=== PATIENT | male | born 1955 | race Caucasian/White ===

== ENCOUNTER 2017-02-04 09:19 | Inpatient (IN) | payer MEDICARE, OTHER ==
[~2017-02-04] VITALS: Ht 177.8 cm; Wt 96.9 kg
--- NOTE | ~2017-02-04 | CON ---
PATIENT'S NAME: MARIA LUISA BARRETT [facility] AGE: 61 Y [address] ROOM: [address] [address] [place] [facility] [place]: 02/04/2017 Consultation DISCHARGE DATE: FAMILY PHYSICIAN: Tank Calvillo MD ATTENDING PHYSICIAN: SHALINI MCGOWAN Consult to Dr. Juanita Mcpherson REASON FOR CONSULTATION: Maria Luisa Barrett is a 61-year-old man with gross hematuria, presumed due to adenocarcinoma of the pancreas, metastatic to the left kidney. HISTORY OF PRESENT ILLNESS: Obtained from Mr. Barrett who is a good historian; Dr. Mcpherson; Dr. Cal Garcia. The patient's history through 01/26/2017 is well documented in his [facility] office note which is appended in the physician's report. The patient is currently on day 11 of his 5th cycle of FOLFOX on his 21st postoperative day after bilateral renal arteriogram and embolization in the upper pole of the left kidney. When the patient was seen in the office on 01/26/2017, he was at home following his discharge from his lengthy hospital admission from 01/14/2017 through 01/22/2017. The patient was capable of self-care. His pain was well controlled with medications. He had no gross hematuria. His appetite and energy level was good. As noted, he is on day 11 of his 5th cycle of FOLFOX. The patient developed laryngeal dysesthesias for 2-3 days, but no paresthesias. On day 8, he developed gross hematuria and clots. On day 10, the patient developed painful urinary retention and hesitancy. The patient reported to the hospital, Dr. Harsha Ferris took the patient to the operating suite and performed a cystoscopy with evacuation of clots. The patient is currently seen at the bedside. Other than this complaint, he had been doing reasonably well. He has had headaches which have improved, but still persists. He has been having these for several months. He generally treats them with [id number] medications. They just occur once a week. His constitutional symptoms are rather minimal given his situation. Upon admission, the white count was 12,200, the hemoglobin 10, the MCV 93, the platelets 345,000, and the patient had 68% neutrophils and 10% lymphocytes. The CMS was remarkable for an EGFR of 47 and alkaline phosphatase of 156 international units/L and AST of 57 international units/L and an albumin of 2.9 g/dL. At this point, the question is how to address the gross hematuria. 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 ROOM: [place] [address] [place]ATION: [facility] [place]: 02/04/2017 Consultation DISCHARGE DATE: FAMILY PHYSICIAN: Tank Calvillo MD ATTENDING PHYSICIAN: SHALINI MCGOWAN left periaortic area and metastatic to left collecting ducts and left kidney, which was first suspected in january 2013 when the patient developed a mass in the pancreatic tail suspicious for cancer. (The patient had received surveillance CAT scans of the pancreas because he had 2 serious episodes of necrotizing pancreatitis, one in September 2010 and one in November 2011, requiring a Papito-en-Y). The patient was taken to surgery again in 2012 after the mass was discovered and a distal pancreatectomy, splenectomy, and lymph node dissection confirmed the presence of the adenocarcinoma of pancreas. A T3 lesion with 12/28 lymph nodes involved with cancer was noted. The patient was placed on adjuvant gemcitabine until the last half of 2012 for 6 months. In June 2015, pulmonary metastases were noted. FOLFIRINOX was administered from 08/20/2015 through 10/14, but discontinued due to toxicity. Gemcitabine was initiated on 07/02/2016 and discontinued on 10/22/2016 due to progressive disease. Chemotherapy was re-initiated with FOLFOX in late October 2006 and on 12/24/2016 his 3rd cycle of FOLFOX was initiated. The patient tolerated the FOLFOX well, but had noted neither improvement nor progression of his symptoms. The patient underwent a course of radiation therapy to the left kidney for gross hematuria. The therapy summary is currently not in [email or web address]. It was presumed that patient would receive 3100 cGy in 14 fractions. Perhaps, this was going to be followed by 2200 cGy in 11 fractions to the left kidney. The patient's hematuria was controlled somewhat with the radiation, but eventually he developed progressive gross hematuria again. Therefore on 01/15/2017, he underwent bilateral renal arteriogram and embolization of the upper pole of the tumor of the left kidney. The patient tolerated the procedure well with pain at the time. It was eventually possible to discharge him from the hospital. It should be noted that an inferior vena cava filter was placed because the patient had developed a large pulmonary embolism with acute hypoxic respiratory failure when anticoagulation had been stopped. The patient was discharged on rivaroxaban. REVIEW OF SYMPTOMS: Negative other than those noted in the history of the present illness. MEDICATIONS: Upon admission, 1. Acetaminophen. 2. ASA 81 mg daily. 3. Calcium carbonate 500 mg p.o. every 2 hours. 4. Vitamin D3 2000 units daily. 5. Cyanocobalamin 1000 mcg p.o. daily. 6. Dexamethasone with chemotherapy. 7. Docusate sodium. 8. Ferrous sulfate. 9. Folic acid. 10. Insulin aspartame. PATIENT'S NAME: MARIA LUISA BARRETT [facility] AGE: 61 Y [address] ROOM: [place] [address] [place] [facility] [place]: 02/04/2017 Consultation DISCHARGE DATE: FAMILY PHYSICIAN: Tank Calvillo MD ATTENDING PHYSICIAN: SHALINI MCGOWAN 11. Magnesium oxide. 12. Metformin. 13. Morphine. 14. Multivitamin. 15. Nortriptyline. 16. Omeprazole. 17. Oxycodone. 18. Polyethylene glycol. 19. Prochlorperazine. 20. Rivaroxaban. 21. Tamsulosin. ACTIVE MEDICAL PROBLEMS, CHRONIC AND DIAGNOSED: 1. Type 2 insulin-dependent diabetes mellitus. 2. Atrial fibrillation, requiring oral anticoagulation. 3. ASCVD with multiple small ischemic strokes. 4. Hypertension. 5. CKD stage 3A. ACUTE MEDICAL ILLNESSES, PAST SURGERIES, INJURIES: 1. DVT and pulmonary emboli. 2. Resection of pancreatic primary. IMPRESSION: 1. Stage IV pancreatic cancer, metastatic to the lung and left kidney. 2. Neither systemic chemotherapy embolization or radiation therapy has controlled the hematuria. 3. It is reasonable to consider a left nephrectomy at this point. The patient is not preterminal, the course of his pancreatic cancer has been fairly indolent and he does not have any obvious contraindications to surgery such as congestive heart failure or unstable angina. Recommend diagnostic and further adjust treatment, left oophorectomy if the urologist believes this is surgically practical. PATIENT EDUCATION: Discussed the rationale for this approach. MD ADELITA GARCIA/baljit PATIENT'S NAME: MARIA LUISA BARRETT [facility] AGE: 61 Y [address] ROOM: [place] [address] [place] [facility] [place]: 02/04/2017 Consultation DISCHARGE DATE: FAMILY PHYSICIAN: Tank Calvillo MD ATTENDING PHYSICIAN: SHALINI MCGOWAN /[id number] CC: MD Tyler Bull MD, PhD d: 02/05/17 2324 t: 02/09/17 1523, CONSULTATION REPORT
--- NOTE | ~2017-02-04 | DS ---
PATIENT'S NAME: MARIA LUISA COSME [facility] AGE: 61 Y [address] ROOM: [place] [address] [place]ATION: [facility] [place] ADMIT DATE: 02/04/2017 Discharge Summary DISCHARGE DATE: 02/20/2017 FAMILY PHYSICIAN: Tank Calvillo MD ATTENDING PHYSICIAN: Ludin Springer CONSULTANTS: 1. Dr. Anderson. 2. Dr. Garcia. 3. Dara Pizarro APRN. DISCHARGE DIAGNOSES: 1. Hematuria. 2. Stage IV pancreatic cancer. 3. Acute on chronic pain. 4. Diabetes mellitus type 2. 5. Postop shock. 6. Paroxysmal atrial fibrillation. 7. Acute kidney injury on chronic kidney disease 3. 8. Acute blood loss anemia on anemia of chronic disease. 9. Chronic hypoxic respiratory failure. 10. Essential hypertension. 11. Long-term anticoagulation. 12. History of pulmonary embolism. 13. Generalized weakness. PROCEDURES PERFORMED: 1. Cystoscopy/fulguration of bleeders by Dr. Ferris on 02/05/2017. 2. Left nephrectomy done on 02/10/[address] Garcia. HOSPITAL COURSE: Please refer to admitting history and physical as dictated by Leonora Georges APRN. Briefly, the patient was admitted to [facility], who had a known history of stage IV pancreatic cancer and a left renal mass. He presented with hematuria. Dr. Garcia and Dr. Anderson were consulted to follow along. The patient was placed on sliding scale insulin for his diabetic needs. Dr. Ferris saw the patient, and CBI was initiated. His Xarelto was placed on hold. He was taken for cystoscopy with clot evacuation on 02/04/2017. Dr. Garcia did see the patient. Options were given for his recurrent hematuria while he has been on long-term anticoagulation for his history of PEs. The patient had decided he wanted to proceed with palliative left nephrectomy by Dr. Garcia. Dara Pizarro, CHA, was consulted to follow for palliative care. On 02/07/2017, he started to have hematuria again, CBI had to be resumed. He did need to get 2 units of packed red blood cells. He had significant pain in the left flank prior to the procedure, which Dilaudid SORTING MACHINE OPERATOR was used for pain control. On 02/10/2017, the patient was PATIENT'S NAME: MARIA LUISA COMSE [facility] AGE: 61 Y [address] ROOM: [id number] [place], [place] [address] LOCATION: [facility] [place] ADMIT DATE: 02/04/2017 Discharge Summary DISCHARGE DATE: 02/20/2017 FAMILY PHYSICIAN: Tank Calvillo MD ATTENDING PHYSICIAN: Ludin Springer taken for a left nephrectomy by Dr. Garcia. He did have an epidural postoperatively. Postop, he did require Levophed and was placed in the ICU. It was felt as though he had a postop shock. His blood pressures did improve. He was able to be weaned off the Levophed. On 02/11/2017, the patient was transferred out of the ICU, on 02/12/2017, his Lovenox 1 mg/kg twice daily was resumed. Pain control continued to be an issue. He was placed on a Dilaudid SORTING MACHINE OPERATOR, which did give him some improvement. His morphine 15 mg extended release was also resumed. Physical Therapy and Occupational Therapy did follow up for restorative cares. His bowels were working. He was noted to have some acute kidney injury on chronic kidney disease stage 3. Creatinine did improve, 2.2 down to 1.6 and then subsequently was stabilized at creatinine of 1.9. His Dilaudid SORTING MACHINE OPERATOR was continued to be weaned. He was placed on Dilaudid p.o. It was recommended that his MS Contin be titrated upwards by Oncology. He was then placed at 60 mg p.o. twice daily of extended release MS Contin with Dilaudid for breakthrough pain. His Donahue was discontinued. He was able to void without difficulty and without hematuria. His end-tidal was monitored, which was stable. Gradually, the patient improved. His MS Contin was then again adjusted to 90 mg p.o. twice daily. He was up ambulatory in the hallway. His appetite had gotten significantly better. He had no further hematuria. On 02/20/2017, he had no left flank pain. His pain was well controlled. His blood sugars were stable on 8 units of Levemir and mild sliding scale. Creatinine was stable. He is recommended to have an outpatient appointment with Dr. Maier in 1 week. His Lovenox was changed to Xarelto 20 mg at discharge. He was stable on his chronic 2 L of oxygen at all times. It was recommended that the patient proceed home with Home Health Care with PT and OT at home as well. Palliative Care will also follow along as needed at home. On 02/20/2017, it was felt as though the patient was stable to return home. Follow up with Dr. Garcia in 3 weeks. Follow up with Dr. Calvillo with a CBC and renal in 3 days. Follow up with Dr. Maier in 1 week. LABORATORY DATA: Potassium remained stable. Sodium remained stable. Calcium 8.5. BUN 21 upon admit, it did drop as low as 19, prior to discharge 26. Creatinine 1.5 upon admit, at its highest 2.2, prior to discharge 1.9. Albumin 2.2. Phos 3.3. GFR 47 upon admit, it trended down as low as 30 and prior to discharge 36. WBC upon admit 12.2, it did trend down as low as 10.8, postoperatively got as high as 15.6, prior to discharge 13.3. Hemoglobin 10.0 upon admit, it dropped as low as 7.5, prior to discharge 8.7. Hematocrit is stable at discharge 28.1. Platelets 165 to 803. RADIOLOGY REPORTS: Chest x-ray done on 02/04/2017, shows no acute findings. Stable scattered nodularities in the lungs could reflect metastatic disease. CT of the abdomen and pelvis done on 02/04/2017, shows a left hematuria evident as a result of recurrent pancreatic cancer mass infiltrating upper pole of the left kidney. Slow progressive recurrent metastatic disease is PATIENT'S NAME: MARIA LUISA COSME [facility] AGE: 61 Y [address] ROOM: [place] [address] LOCATION: [facility] [place] ADMIT DATE: 02/04/2017 Discharge Summary DISCHARGE DATE: 02/20/2017 FAMILY PHYSICIAN: Tank Calvillo MD ATTENDING PHYSICIAN: Ludin Springer minimally changed in the short interval. Left periaortic retroperitoneal node is mildly increased in size. Postop chest and abdominal x-ray done on 02/12/2017 shows air containing small bowel loops with gas and fecal material in the colon. Overall appearance consistent with nonobstructive adynamic ileus. The bowel did not appear to be obstructive, extensive postop surgical changes in abdomen. Low lung volume with crowding of the lung markings at the bases. DISCHARGE INSTRUCTIONS: The patient will be discharged to home with Home Health Care, PT and OT. Diet as tolerated. Activity as tolerated, no driving until cleared. Followup appointment with Dr. Calvillo in 3 days with a CBC and renal. Follow up with Dr. Garcia in 3 weeks. Follow up with Dr. Maier in 1 week. 2 L of oxygen at all times. DISCHARGE MEDICATIONS: 1. Tylenol 1000 mg p.o. every 6 hours. 2. Os-Yan with vitamin D two tablets p.o. twice daily. 3. Trubiotics 1 capsule p.o. daily. 4. Vitamin D3 2000 units p.o. daily. 5. Vitamin B12 1000 mcg p.o. daily. 6. Colace 100 mg p.o. 3 times a day p.r.n. 7. Feosol 325 mg p.o. twice daily. 8. Folic acid 1 mg p.o. daily. 9. NovoLog sliding scale with meals. 10. Neurontin 100 mg p.o. every 8 hours. 11. Levemir 8 units subcu q.h.s. 12. Creon 1 capsule p.o. 3 times a day with meals. 13. Magnesium 400 mg p.o. twice daily. 14. Metoprolol 200 mg p.o. q.h.s. 15. MS Contin 90 mg p.o. twice daily. 16. Multivitamin 1 tab p.o. twice daily. 17. Pamelor 50 mg p.o. q.h.s. 18. Prilosec 40 mg p.o. daily. 19. MiraLAX 17 g p.o. q.h.s. p.r.n. constipation. 20. Senokot 2 tablets every night at bedtime. 21. Dilaudid 2 mg p.o. every 2 hours as needed for breakthrough pain. 22. Compazine 10 mg p.o. every 8 hours as needed for headache, nausea, vomiting. 23. Creon 12,000 units p.o. 3 times daily with meals. 24. PreserVision 1 tablet p.o. twice daily. 25. Aspirin 81 mg p.o. daily. 26. Dexamethasone 8 mg p.o. every day after chemo. 27. Xarelto 20 mg p.o. daily. Thank you for allowing us to participate in the care of this patient as he has been hospitalized at [facility]. PATIENT'S NAME: MARIA LUISA COSME [facility] AGE: 61 Y [address] ROOM: [address] [address] LOC[place]: [facility] [place] ADMIT DATE: 02/04/2017 Discharge Summary DISCHARGE DATE: 02/20/2017 FAMILY PHYSICIAN: Tank Calvillo MD ATTENDING PHYSICIAN: Ludin Springer Time spent at the bedside as well as coordinating discharge 40 minutes. STEPHENIE GA APRN FOR MD ARTURO ARGUELLO/modl /[id number] d: 02/21/17 0354 t: 03/05/17 1526, DISCHARGE SUMMARY
--- NOTE | ~2017-02-04 | OR ---
PATIENT'S NAME: MARIA LUISA COSME [facility] AGE: 61 Y [address] ROOM: [place] [address] [place] [facility] [place]: 02/04/2017 OR/Procedure Report DISCHARGE DATE: FAMILY PHYSICIAN: Tank Calvillo MD ATTENDING PHYSICIAN: SHALINI MCGOWAN SURGEON: Cal Harry MD STEEL PLATE PRINTER: Dr. Mckenzie. DATE OF PROCEDURE: 02/10/2017 PREOPERATIVE DIAGNOSES: 1. Metastatic pancreatic cancer with invasion of the left kidney. 2. Refractory gross hematuria with clot retention. POSTOPERATIVE DIAGNOSES: 1. Metastatic pancreatic cancer with invasion of the left kidney. 2. Refractory gross hematuria with clot retention. PROCEDURE PERFORMED: Complicated left nephrectomy secondary to extensive tumor infiltration. ANESTHESIA: General. INDICATION: This is a 61-year-old gentleman with the above-noted diagnoses. He is continuing with chemotherapy. He has multiple complications. He has had multiple admissions because of gross hematuria. Less invasive approaches have been tried including an attempted embolization as well as radiation. He continues to be admitted frequently. We have been reluctant, considering the overall picture, to proceed with palliative nephrectomy. However, the patient is in again with clot retention, and we were out of options. Everyone has been consulted, and most importantly, the patient has given his opinion. He would like to try to get the kidney out and hopefully stay out of the hospital. This will allow for more liberal anticoagulation secondary to his known pulmonary emboli. He understands that he is very high risk and there is nothing curative about this. DESCRIPTION OF PROCEDURE: Having obtained his informed consent, the patient was taken to the operating room. He was prepped and draped sterilely in a modified left flank position. General anesthesia was administered. He also had an epidural catheter placed. A left flank incision was made. The left retroperitoneum was entered. I then went ahead and opened the peritoneum and mobilized the colon anteromedially. The kidney was fixed secondary to extensive malignant and desmoplastic infiltration. I was able to free it up inferiorly and laterally. Posterior, tumor grows into it directly as well as superiorly. It became much more PATIENT'S NAME: MARIA LUISA COSME [facility] AGE: 61 Y [address] ROOM: [place] [address] [place] [facility] [place] DATE: 02/04/2017 OR/Procedure Report DISCHARGE DATE: FAMILY PHYSICIAN: Tank Calvillo MD ATTENDING PHYSICIAN: SHALINI MCGOWAN difficult when we appreciate how much tumor encasement there was of the hilum. Reviewing his CT, he had a single artery and vein, and I felt that I would be able to identify those. It was going to be difficult. We came across the tumor superiorly. I then turned my attention inferiorly. Ordinarily, I like to make sure we are resectable before dividing the ureter. However, we were not going to be able to get any mobilization without proceeding. Then, we made a decision, considering all the above issues, to proceed. The ureter and gonadal vessels were divided and ligated. We then worked our way up along the aorta or at least where the aorta was encased in tumor. I continued to carefully skinny down the area of the hilum, working from the superior and inferior sides. Ultimately, we had it narrowed down up that I could get a pedicle clamp across it. The pedicle clamp was placed. I then worked posteriorly, divided more tumor infiltration, and continued to mobilize the kidney. We came through the capsule and desmoplastic versus malignant reaction toward the upper pole pushing the adrenal gland off. I then went ahead and divided the hilum. After taking down some more attachments, the kidney was removed. We then spent some time using right angles and pedicle clamps, cleaning up the hilum so we could get good ties on. The hilum was controlled with #1 silk ties. We then spent some time with antibiotic irrigation. Small bleeding points were controlled. The left colon was then returned to its normal anatomic position, and the wound was closed in layers. The patient tolerated the procedure well. Blood loss was estimated at 1 L. Two units were replaced. All counts were correct. The patient returned to the recovery area awake and in stable condition. CAL HARRY MD [facility]/modl /[id number] CC: MD Tank Burk MD d: 02/10/17 1344 t: 02/17/17 0951, OPERATIVE SUMMARY
--- NOTE | ~2017-02-04 | CON ---
PATIENT'S NAME: MARIA LUISA COSME [facility] AGE: 61 Y [address] ROOM: [address] [address] LOCATION: [facility] [place] ADMIT DATE: 02/04/2017 Consultation DISCHARGE DATE: FAMILY PHYSICIAN: Tank Calvillo MD ATTENDING PHYSICIAN: SHALINI MCGOWAN DATE OF CONSULTATION: 02/06/2017 REFERRING PHYSICIAN: Madhu Anderson MD LOCATION: Medical-surgical unit, Room 3207. CHIEF COMPLAINT: Palliative care referral for the patient and family support and further goals of care discussion. HISTORY OF PRESENT ILLNESS: The patient is a 61-year-old male, who is known to Palliative Care Services from his previous admission on 01/14/2017 through the 01/22/2017 with submassive pulmonary embolism. The patient has a known history of stage IV metastatic pancreatic cancer with metastasis to the left kidney status post embolization of the left kidney on 01/15/2017. He is currently on chemotherapy with FOLFOX. Following discharge home on the , the patient had done well for a number of days, had followed up with Oncology as well as his primary care provider. A few days into his time at home, he began to have hematuria and eventually he developed urinary retention at home and returned to the emergency room. On 01/30/2017, he did require cystoscopy with clot evacuation and is currently requiring CBI. The patient continues to have issues with left flank pain. At the current time, he is rating his pain at 9/10, but tells me that the current Dilaudid and Percocet are controlling his pain effectively. He denies any nausea or vomiting. He does have a significant amount of fatigue. His last bowel movement was on 02/05/2017 but he is not noted to be on any routine bowel medications. He reports that his appetite has been fairly good. He denies feeling overtly depressed. He has had some difficulty sleeping while here at the hospital. Given the patient's guarded prognosis, palliative care has been consulted to assist. PREVIOUS OPERATIONS: 1. Recent cystoscopy with clot evacuation. 2. Exploratory laparotomy. 3. Open cholecystectomy. 4. Papito-en-Y gastric bypass. 5. Partial pancreatectomy. 6. Splenectomy and lymph node dissection. 7. Lumbar surgery. PATIENT'S NAME: MARIA LUISA COSME [facility] AGE: 61 Y [address] ROOM: [place] [address] LOCATION: [facility] [place] ADMIT DATE: 02/04/2017 Consultation DISCHARGE DATE: FAMILY PHYSICIAN: Tank Calvillo MD ATTENDING PHYSICIAN: SHALINI MCGOWAN 8. Multiple kidney stones. 9. Bilateral renal stents. 10. Port placement. 11. Abdominal hernia repair. 12. IVC filter placement in December,. PAST MEDICAL HISTORY: 1. Stage IV pancreatic cancer with metastasis to the left kidney, lungs and liver. 2. Hematuria secondary to the left kidney metastasis status post embolization. 3. Chronic kidney disease. 4. Diabetes mellitus type 2. 5. Paroxysmal atrial fibrillation. 6. History of DVT status post IVC filter. 7. History of recent pulmonary embolism. 8. Poor vision. 9. Chronic anemia. 10. Hypertension. 11. Chronic pain. ALLERGIES: NO KNOWN ALLERGIES. MEDICATIONS: Please see current MAR. SOCIAL HISTORY: The patient is . He lives alone in his own home just outside at [place]. He has 2 sons who check on him frequently and who are his power of civil attorney. He does have a distant history of alcohol use. No alcohol since 2010. No tobacco use. FAMILY HISTORY: The patient's mother is alive and well. His father of colon cancer in his 70s. He also has a history of heart disease in the family. REVIEW OF SYSTEMS: As per HPI all other systems reviewed and are negative except for as noted. PHYSICAL EXAMINATION: VITAL SIGNS: Blood pressure 96/50, heart rate 89, temperature 98.6, respirations 20, and O2 saturation 91% on 2 L. GENERAL: Reveals an alert, oriented, middle-aged white male, who is sitting in a hospital bed. Does not appear to be in any acute distress. PATIENT'S NAME: MARIA LUISA COSME [facility] AGE: 61 Y [address] ROOM: [place] [address] LOCATION: [facility] [place] ADMIT DATE: 02/04/2017 Consultation DISCHARGE DATE: FAMILY PHYSICIAN: Tank Calvillo MD ATTENDING PHYSICIAN: SHALINI MCGOWAN HEENT: Normocephalic, atraumatic. Pupils are equal and reactive to light. Sclerae not icteric. Conjunctivae are pink. Tongue and mucous membranes are moist and pink. Dentition is adequate. CARDIOVASCULAR: Heart tones regular rate and rhythm. I am not able to note a murmur. RESPIRATORY: Respirations are regular and nonlabored. Lung sounds are clear and diminished throughout. GASTROINTESTINAL: Abdomen is obese. Soft. Mildly tender throughout. GENITOURINARY: CBI is running with pink-tinged and urine with clots. MUSCULOSKELETAL: No significant joint deformities. Peripheral pulses are strong and equal bilaterally. No clubbing or cyanosis. He does have a trace lower extremity edema, left greater than right. SKIN: Warm and dry. No unusual lesions. NEUROLOGICAL: Grossly intact. Mental status is unremarkable. IMPRESSION AND PLAN: 1. Pain. The patient states that it is from waist up to his armpits primary on the left flank area. The patient tells me that his current p.r.n. Percocet and Dilaudid are effective though he is having a hard time keeping track of the time and when he can have another dose as he is not able to see well enough to see the white board on the wall. I did start a pain documentation sheet and placed it on his bedside table. Do note that the patient is not on any routine bowel medications at this time though he does have p.r.n. available. 2. Fatigue. 3. Code status. The patient is a full code. Once again, discussed this with the patient. At this point, he is stating that he would want all life support provided. Once again, introduced the role of palliative care to the patient. Discussed with him his understanding of his disease as well as his options. Discussed with him his understanding of his options as far as surgical intervention which would be high risk versus do nothing and continue to monitor which would most likely mean multiple hospitalizations versus more of a comfort approach with hospice. At this point, the patient does appear as though he is opting for surgical intervention hoping this will give him some relief of symptoms. I also provided education on pain management and symptom management as well. I talked with him about his goals and at this point, he is stating he just wants to get through surgery, but he does also talk about wanting to get back home and wanting to spend some more time with his grand kids before he goes. We will continue to follow this patient throughout this hospitalization with further goals of care, support and education as needed. Total visit was 50 minutes greater than 50% of this time was spent providing education and counseling. PATIENT'S NAME: MARIA LUISA COSME [facility] AGE: 61 Y [address] ROOM: [address] [address] LOCATION: [facility] [place] ADMIT DATE: 02/04/2017 Consultation DISCHARGE DATE: FAMILY PHYSICIAN: Tank Calvillo MD ATTENDING PHYSICIAN: SHALINI MCGOWAN Thank you for allowing me to assist the patient and family. RODRIGO RODRIGUEZ, CHA FOR NABEEL JAMES MD DLS/modl /[id number] CC: Madhu Anderson MD d: 02/10/17 0300 t: 02/23/17 1242, CONSULTATION REPORT
--- NOTE | ~2017-02-04 | HP ---
PATIENT'S NAME: MARIA LUISA COSME [facility] AGE: 61 Y [address] ROOM: [address] [place] [id number] LOCATION: [facility] [place] ADMIT DATE: 02/04/2017 History & Physical DISCHARGE DATE: 02/20/2017 FAMILY PHYSICIAN: Tank Calvillo MD ATTENDING PHYSICIAN: JOEL CALLOWAY co-signing physician per physician 03/03/17 AO DATE OF SERVICE: 02/04/2017 REASON FOR ADMISSION: Hematuria. CHIEF COMPLAINT: Hematuria in the setting of a left renal mass and stage IV metastatic pancreatic cancer. HISTORY OF PRESENT ILLNESS: This is a 61-year-old male with known stage IV pancreatic cancer with metastasis, who underwent his last chemotherapy, January 26, had been doing relatively well. He was seen by his primary care provider, Dr. Calvillo, on January 28. He has a known history of an infiltrating left renal mass, on which he underwent an embolization by Interventional Radiology back on January 15. Also during that hospitalization, he was found to have a large pulmonary embolism, in which he had an IVC filter placed by Dr. Martell on the and was started on Xarelto PE treatment. On Thursday. February 02, the patient noticed blood in his urine. Over the last couple of days, he has had progressive retention-like symptoms with burning upon urination. He also complained of some abdominal tenderness although he was not taking any more pain medicine than he typically has. He came to the emergency room where a Donahue catheter was placed and he did feel some relief. It showed katie hematuria. Urology was notified, and he was started on CBI and asked to be admitted under the hospitalist. The patient has been doing relatively well while at home. He does complain of some lightheadedness upon rising, but this is not new for him. He has been mobilizing well. He states his appetite has been good. He denies any weight loss or weight gain. Since his last hospitalization, he had been significantly short of breath and that has improved, although he still is wearing 1-2 L of oxygen all the time at home. He denies any cough or dyspnea on exertion. He denies any chest pains or palpitations or any history of heart murmurs. He denies any PND or edema. He does complain of some abdominal pain located in the right lower quadrant as well as some discomfort in his left CVA area of his kidney, worse with palpation. He does take pain medicine at nighttime to help him sleep, in which he has been able to without any difficulty. As above, he does complain of some urinary retention and burning as well as blood in his urine. He does state his stools have been PATIENT'S NAME: MARIA LUISA COSME [facility] AGE: 61 Y [address] ROOM: [address] [place], [place] [address] LOCATION: [facility] [place] ADMIT DATE: 02/04/2017 History & Physical DISCHARGE DATE: 02/20/2017 FAMILY PHYSICIAN: Tank Calvillo MD ATTENDING PHYSICIAN: JOEL CALLOWAY normal, without any diarrhea or constipation. There is no melena. He denies any joint pains. REVIEW OF SYSTEMS: A 10-point review of systems was completed and was negative other than mentioned above in the HPI. PAST MEDICAL HISTORY: 1. Stage IV pancreatic cancer with metastasis to the left kidney, lungs, and liver. 2. History of hematuria secondary to left kidney metastasis. 3. Chronic kidney disease III. 4. Diabetes mellitus type 2 with hypoglycemia, insulin dependence. 5. Paroxysmal atrial fibrillation, on Xarelto. 6. History of DVT, status post IVC filter. 7. Pulmonary embolism, on Xarelto. 8. Chronic right eye vision loss. 9. Anemia of chronic disease. 10. Hypertension. 11. Chronic pain. PAST SURGICAL HISTORY: 1. IVC filter placement, January 14, 2017. 2. Embolization of the left kidney by Interventional Radiology on January 15, 2017. 3. History of lithotripsy. 4. Surgical resection of the pancreas, Whipple procedure. FAMILY HISTORY: Father secondary to colon cancer and history of myocardial infarction. Further family history reviewed and deemed noncontributory. SOCIAL HISTORY: The patient denies any history of alcohol, tobacco, or illicit drug use. MEDICAL ALLERGIES: No known medical allergies. HOME MEDICATIONS: 1. Metformin 1000 mg p.o. twice daily. 2. Multivitamin 1 tablet p.o. twice daily. 3. Nortriptyline 50 mg p.o. at bedtime. 4. Tamsulosin or Flomax 0.4 mg p.o. at bedtime. 5. Ferrous sulfate 325 mg p.o. twice daily. 6. Magnesium oxide 400 mg p.o. twice daily. PATIENT'S NAME: MARIA LUISA COSME [facility] AGE: 61 Y [address] ROOM: [address] [place], [place] [address] LOCATION: [facility] [place] ADMIT DATE: 02/04/2017 History & Physical DISCHARGE DATE: 02/20/2017 FAMILY PHYSICIAN: Tank Calvillo MD ATTENDING PHYSICIAN: JOEL CALLOWAY 7. Polyethylene glycol 17 g p.o. at bedtime as needed for constipation. 8. Creon 31512 units p.o. 3 times daily with meals. 9. Metoprolol succinate 200 mg p.o. at bedtime. 10. Folic acid 1 mg p.o. every day. 11. Vitamin D3 2000 units p.o. every day. 12. Vitamin B12 1000 mcg p.o. every day. 13. PreserVision multivitamin 1 tablet p.o. twice daily. 14. Aspirin 81 mg p.o. daily. 15. NovoLog FlexPen 5 units subcutaneous three times daily. 16. Levemir 40 units subcutaneous twice daily. 17. TruBiotics 1 capsule p.o. daily. 18. Compazine 10 mg p.o. every 8 hours as needed for headache, nausea, or vomiting. 19. Omeprazole 40 mg p.o. every day. 20. Colace 100 mg p.o. 3 times daily as needed for constipation. 21. Senokot 17.2 mg p.o. every night at bedtime as needed for constipation. 22. Dexamethasone 8 mg p.o. every day as needed after chemotherapy. 23. Xarelto 15 mg p.o. twice daily until last dose, February 06, at nighttime. 24. Xarelto 20 mg p.o. daily starting on the morning of February 07. 25. Percocet 5/325 mg 1 tablet p.o. every 3 hours as needed for moderate-to- severe pain. 26. MS Contin 15 mg p.o. twice daily. 27. Tylenol 650 mg p.o. every 4 hours as needed for mild pain. 28. Tums 500 mg p.o. every 2 hours as needed for indigestion. PHYSICAL EXAMINATION: VITAL SIGNS: Temperature 98.0 oral, heart rate 75, blood pressure 108/78, respiratory rate 20, oxygen 2 L oxygen saturations 100%, weight is 223 pounds, and BMI is 32.0. GENERAL: This is a 61-year-old, male, who does not appear in any distress; resting comfortably in bed; alert, oriented, and cooperative with examination. HEENT: His head is normocephalic, atraumatic. Eyes: Extraocular movements are intact. His oropharynx reveals pink moist mucosa. NECK: Supple without any lymphadenopathy. LUNGS: Clear throughout all vasquez. There are no wheeze, no crackles, there is no dyspnea. The patient is on 1 L of oxygen as I speak with him. Chest expansion is symmetric. HEART: Regular rate and rhythm without any gallop or murmur. S1, S2 present. ABDOMEN: Full and round. There is a mid abdominal scarred incision. It is soft. His bowel sounds are present. He does have tenderness in the left costovertebral angle. He also has some tenderness with moderate palpation into the right lower quadrant. : Reveals a 3-way Donahue catheter placed with continuous bladder irrigation noted. There is euceda red urine with no clots visualized. PATIENT'S NAME: MARIA LUISA COSME [facility] AGE: 61 Y [address] ROOM: [address] [address] LOCATION: [facility] [place] ADMIT DATE: 02/04/2017 History & Physical DISCHARGE DATE: 02/20/2017 FAMILY PHYSICIAN: Tank Calvillo MD ATTENDING PHYSICIAN: JOEL CALLOWAY EXTREMITIES: No clubbing, no cyanosis, there is no edema. He has 2+ pulses bilaterally. NEUROLOGIC: Cranial nerves 2-12 intact. No sensory deficits noted. RADIOLOGIC IMAGING: CT scan of the abdomen and pelvis, without contrast, shows the known mass infiltrating the upper pole of the left kidney at 68 mm, which is unchanged when compared to the previous imaging. He does have a mild interval change and the retroperitoneal node increasing in size from 43 mm to 47 mm. Otherwise, noted the metastatic disease and extensive nodularity in the pancreatic bed, in the left perinephric fat, with enlarged and posterior mediastinal lymph nodes, small metastatic lung base nodules, and liver lesions without appreciable change. The IVC filter was in correct place and there is a nonobstructive bowel. Chest x-ray: No acute findings and stable scattered nodularity in both lungs. LABORATORY FINDINGS: Lactate of 1.9. Initial blood glucose on his chemistry panel was 49, this was corrected and was 106 and 91 respectively. Cardiac markers were negative. CBC showed a white blood cell count of 12.2, hemoglobin of 10.0, hematocrit of 31.8, and a platelet count of 345. Chemistry panel: As stated above, glucose was 49, BUN of 21, creatinine 1.5, sodium 140, potassium 4.3, chloride 103, and CO2 28. Calcium 8.7, total protein 6.5, albumin 2.9, AST 57, ALT 53, alkaline phosphatase 156, and total bilirubin 0.1. GFR was 47. INR was 1.1. Urine was red, 4+ turbid urine with specific gravity 1.020, pH 8.0, negative leukocytes, negative nitrites, 500 protein, negative glucose, negative ketones, normal urobilinogen, bilirubin was high. Micro showed 150 blood, negative white blood cells, and negative bacteria. Procalcitonin was 0.05. ASSESSMENT AND PLAN: 1. Gross hematuria, recurrent, on long-term anticoagulation. Continue with the continuous bladder irrigation and obtain a Urology consultation. Hemoglobin is stable at 10.0, but we will type and cross blood and the need of transfusion if his hemoglobin falls less than or equal to 7.0 or he becomes symptomatic. We will trend H and H every 6 hours for 2 more checks and follow up with Urology consultation's recommendations. For now, we will hold the Xarelto and the aspirin, which he was taking at home in lieu of the hematuria. His last dose of Xarelto was taken this morning. 2. Left renal mass, status post recent embolization. 3. Diabetes mellitus type 2, insulin dependence, with hypoglycemia. The patient has been eating regularly without any complications, but states that he has been having some lower blood sugars between 60s and 80s on his checks at home. We will decrease his Levemir dosage and stop his PATIENT'S NAME: MARIA LUISA COSME [facility] AGE: 61 Y [address] ROOM: [place] [address] LOCATION: [facility] [place] ADMIT DATE: 02/04/2017 History & Physical DISCHARGE DATE: 02/20/2017 FAMILY PHYSICIAN: Tank Calvillo MD ATTENDING PHYSICIAN: JOEL CALLOWAY home metformin. We will place him on a sliding scale insulin regimen and monitor his blood glucose before each meal and at bedtime. 4. History of pulmonary embolism and deep venous thrombosis, on long-term anticoagulation. As previously stated, long-term anticoagulation will be on hold until further review by Urology. Last dose of Xarelto taken this morning. We will resume once it is appropriate. 5. Stage IV metastatic pancreatic cancer. We will place Dr. Anderson on his senses and obtain full consultation if needed. 6. History of deep venous thrombosis, status post IVC filter. 7. Anemia of chronic disease. Continue with B12 and iron supplementation. Hemoglobin is currently 10. In lieu of his hematuria, we will trend his hemoglobin serially. 8. Essential hypertension. We will continue his home metoprolol and observe his blood pressures. 9. Chronic pain with chronic narcotic dependence. We will continue his home regimen of MS Contin scheduled and Percocet as needed. 10. Chronic hypoxic respiratory failure secondary to pulmonary embolism, requiring 1 L of oxygen. We will continue with oxygen supplementation and pulmonary hygiene while in hospital. 11. Chronic anticoagulation to be placed on hold. 12. Obesity with a BMI of 32. 13. Code status is full code. The above line of management of this patient was done in collaboration with Dr. Ludin Springer. It was reviewed with the patient. All questions were answered with statements of understanding. MACIEL BARRON APRN, APRN FOR MD GEOVANY SMALLWOOD/baljit /[id number] Corrected co-signing physician per physician 03/03/17 CHINO D: T: [id number] HISTORY & PHYSICAL
--- NOTE | ~2017-02-04 | ER ---
PATIENT'S NAME: MARIA LUISA [facility] AGE: 61 Y [address] ROOM: [place] [id number] [place] [facility] [place] DATE: 02/04/2017 ER/Outpatient Report DISCHARGE DATE: FAMILY PHYSICIAN: Tank Calvillo MD ATTENDING PHYSICIAN: SHALINI MCGOWAN Time of Arrival: 0925 hours. Time of Evaluation: 0925 hours. CHIEF COMPLAINT: Hematuria and low blood sugar. HISTORY OF PRESENT ILLNESS: The patient is a 61-year-old male, who presents to the emergency department today with a chief complaint of hematuria and low blood sugar. He reports it started 2 days ago. It has progressively worsened. He woke up this morning, is now having gross hematuria and having troubles urinating. The patient was recently in the hospital. He does have a history of stage IV pancreatic cancer. He recently underwent embolization for his kidney as well with a mass in there. He does report his blood sugars have been running low as well. He has not been feeling well overall. Denies any fevers or chills. Does have some chest pain that is chronic in nature. There is some right-sided abdominal pain as well, it is worse with touch, it is sharp. 0/10, unless touched. PAST MEDICAL HISTORY: Insulin-dependent diabetes mellitus, hypertension, atrial fibrillation, pancreatic cancer, pancreatitis, DVT, PE, stage III chronic kidney disease, kidney stones, anemia of chronic disease, and MRSA in urine. PAST SURGICAL HISTORY: Pancreatectomy, partial; cholecystectomy; splenectomy; kidney stone surgery; back surgery x2; and recent embolization of left kidney. SOCIAL HISTORY: The patient denies any tobacco, alcohol, or illicit drug use. ALLERGIES: NO KNOWN DRUG ALLERGIES. MEDICATIONS: Please see list. PRIMARY CARE DOCTOR: Tank Calvillo M.D. PATIENT'S NAME: MARIA LUISA [facility] AGE: 61 Y [address] ROOM: [place] [address] [place]: [facility] [place]MIT DATE: 02/04/2017 ER/Outpatient Report DISCHARGE DATE: FAMILY PHYSICIAN: Tank Calvillo MD ATTENDING PHYSICIAN: SHALINI MCGOWAN REVIEW OF SYSTEMS: All systems are reviewed by myself and negative with the exception of those discussed in the HPI and past medical history. PHYSICAL EXAMINATION: VITAL SIGNS: Weight 97.2 kg, blood pressure 113/80, pulse 80, respiratory rate 20, temperature 98.2, and oxygen saturation 98% on 2 L nasal cannula. GENERAL: The patient is a 61-year-old male, appears older than stated age, in no acute distress. HEENT: Normocephalic and atraumatic. Conjunctivae are normal. NECK: Supple. There is no nuchal rigidity. CARDIOVASCULAR: Regular rate and rhythm. No murmurs, rubs, or gallops. LUNGS: Clear to auscultation bilaterally. No wheezes, rales, or rhonchi. ABDOMEN: Soft. Right lower quadrant tenderness to palpation is mild. There is no rebound, rigidity, or guarding. Positive bowel sounds. MUSCULOSKELETAL: The patient moves all 4 extremities. SKIN: Warm and dry. There is no rashes or lesions noted. LABORATORY DATA AND X-RAYS: CBC: White blood cell count 12.2, hemoglobin 10.0, and hematocrit 31.8, otherwise normal. Lactate is 1.9. Coags are normal. CMP is unremarkable except for creatinine 1.5 and glucose 49. Alkaline phosphatase 156, AST is 57, and ALT is normal. CK-MB is normal. Troponin is normal. Procalcitonin is 0.05. Urinalysis shows full rbc's, negative wbc's, 500 protein, negative leukocyte esterase, negative nitrites. Repeat Accu-Chek at 10:30 was 106, at 11 o'clock was 91, at 11:[address] scan of the abdomen and pelvis was obtained. I have discussed results with the radiologist. It does show evidence of blood in the collecting system. The masses are minimally enlarged from previous. IMPRESSION: 1. Gross hematuria. 2. Hypoglycemia, on long-acting insulin. 3. Chronic kidney disease. 4. Stage IV pancreatic cancer. 5. History of large pulmonary embolism. 6. Chronic hypoxic respiratory failure. 7. Diabetes mellitus. 8. Initial visit. EMERGENCY DEPARTMENT COURSE: The patient brought back to the examination room. Seen and evaluated by myself. IV was established. Laboratory analysis and imaging are obtained as described above. A Donahue catheter was inserted and the irrigation has made. PATIENT'S NAME: MARIA LUISA [facility] AGE: 61 Y [address] ROOM: [id number] [place], [place] [address] LOC[place]: [facility] [place]MIT DATE: 02/04/2017 ER/Outpatient Report DISCHARGE DATE: FAMILY PHYSICIAN: Tank Calvillo MD ATTENDING PHYSICIAN: SHALINI MCGOWAN The patient does have some clearing of the blood. The patient was given fentanyl for pain. He was given Tylenol for headache as well. I have discussed the results with the patient. Recommend admission to the hospital for further evaluation, treatment, and management. I have contacted Dr. Mcgowan with the Hospitalist Service. He does agree to accept the patient for further evaluation, treatment, and management. I have contacted Urology with Dr. Ferris, who is on-call, he will see and evaluate the patient in the hospital. He does recommend continuous irrigation of the bladder, this has been started. DISPOSITION: The patient was admitted under the care of the Hospitalist Service and Dr. Mcgowan in stable condition. DO SERENA WATKINS/modl /[id number] d: 02/04/[id number] t: 02/10/17 0601, OUTPATIENT REPORT
--- NOTE | ~2017-02-04 | OR ---
PATIENT'S NAME: MARIA LUISA [facility] AGE: 61 Y [address] ROOM: [place] [address] [place] [facility] [place]: 02/04/2017 OR/Procedure Report DISCHARGE DATE: FAMILY PHYSICIAN: Tank Calvillo MD ATTENDING PHYSICIAN: SHALINI MCGOWAN SURGEON: Harsha Ferris MD CRANE CREW SUPERVISOR: DATE OF PROCEDURE: 02/05/2017 PREOPERATIVE DIAGNOSIS: Gross hematuria with clot retention. POSTOPERATIVE DIAGNOSIS: Gross hematuria with clot retention. PROCEDURE PERFORMED: Cystoscopy with clot evacuation. ANESTHESIA: General. COMPLICATIONS: None. INDICATIONS: The patient is a 61-year-old male with stage IV pancreatic carcinoma that is invading into the left kidney. The patient is status post embolization of the lesion and his kidney, but continues to have gross hematuria for the past 2 days. The patient was admitted and a 3-way Donahue catheter placed. In spite of this, the patient has experienced clot retention, which nursing staff could not clear. He is therefore taken to the operating room for cystoscopy and clot evacuation. DETAILS OF PROCEDURE: After informed consent obtained, the patient was taken to the operating room. A general anesthetic was applied and he was placed in the dorsal lithotomy position. The groin area was prepped and draped in the normal sterile fashion. A cystoscope was introduced into the urethra and bladder, which was full of clots. The Jaylene evacuator was then used to irrigate the clots out. Once all the clots were removed, the bladder was inspected. Blood was seen coming out of the left ureteral orifice. Following this, the cystoscope was removed and a 24-Bahraini three-way Donahue catheter was placed. The patient was placed back on bladder irrigation. He tolerated the procedure well, was transferred to recovery room in good condition. MD LILIYA NIXON/baljit PATIENT'S NAME: MARIA LUISA [facility] AGE: 61 Y [address] ROOM: [place] [address] [place] [facility] [place]: 02/04/2017 OR/Procedure Report DISCHARGE DATE: FAMILY PHYSICIAN: Tank Calvillo MD ATTENDING PHYSICIAN: SHALINI MCGOWAN /[id number] CC: Tank Calvillo MD d: 02/05/1710 t: 02/16/17941, OPERATIVE SUMMARY
[~2017-02-04 09:19] MED LIST: ADVIL200 MG PO; AMARYL4 M1 PO; ASPIR-LOW81 MG PO; ASPIRIN BUFFER325 MG PO; ASPIRIN LO-DOSE81 MG PO; ASPIRIN325 MG PO; AUGMENTIN875 MG PO; CALAN SR GENER120 MG PO; CALCIUM 600 +1 EAC2 PO; COLACE100 MG PO; COMPAZINE10 MG PO; CREON 121 CAP PO; CREON DR 12,001 EACH PO; CUBICIN (NON-F500 MG IV; DEXAMETHASONE4 MG PO; DIFLUCAN200 MG PO; DRISDOL 5050000 UNIT PO; ELAVIL25 MG PO; FEOSOL325 MG PO; FLEXERIL10 MG PO; FLOMAX0.4 MG PO; FOLIC ACID1 MG PO; GLUCOPHAGE1000 MG PO; HEADACHE PAIN1 EACH PO; HYDROCODON-ACE1 EAC4 PO; INDOCIN25 MG PO; IRON18 MG PO; LANOXIN (DIGI250 MCG PO; LEVAQUIN500 MG PO; LEVEMIR FL100 UNIT/1 SUB-Q; LEVEMIR100 UNIT/1 SUB-Q; LIPITOR20 M1 PO; LOVENOX 10100 MG/1 M SUB-Q; MAGNESIUM400 M1 PO; MAGOX 400400 MG PO; METOPROLOL SUCC50 MG PO; MIRALAX17 GM PO; MOTRIN600 MG PO; MS CONTIN15 MG PO; MULTI VITAMIN1 EACH PO; NORCO 5-325 MG1 TAB; NORCO 5-325 MG1 TAB PO; NOVOLOG FL100 UNIT/1 SUB-Q; NOVOLOG100 UNIT/1 SUB-Q; OSCAL + D500 MG PO; PAMELOR25 M1 PO; PERCOCET 10-321 EACH PO; PERCOCET 5-3251 EACH PO; PRESERVISION A1 EAC2 PO; PRILOSEC20 M1 PO; PRILOSEC20 MG PO; PRINIVIL (ZESTRI5 MG PO; PROBIOTIC1 EACH PO; RIFADIN, RIMAC300 MG PO; ROXICODONE 5MG (5 MG PO; SENOKOT8.6 MG PO; TESSALON PERLE100 MG PO; TOPAMAX25 MG PO; TOPROL XL 5050 MG PO; TOPROL XL100 MG PO; TOPROL XL25 MG PO; TRUBIOTIC PO; TRUBIOTICS PO; TUMS REGULAR ST1 TAB PO; TYLENOL325 MG PO; VASOTEC2.5 M1 PO; VERAPAMIL ER120 M1 PO; VITAMIN B-121000 MCG PO; VITAMIN B-12250 MCG PO; VITAMIN D-32000 UNI1 PO; VITAMIN D1000 UNI1 PO; XARELTO15 MG PO; XARELTO20 MG PO; ZOFRAN4 MG PO
[2017-02-04 10:11] LABS: BASOPHIL # 0.1 K/uL (0.0-0.2); BASOPHIL % 0.7 %; EOSINOPHIL # 0.7 K/uL (0.0-0.5); EOSINOPHIL % 5.6 %; HEMATOCRIT 31.8 % (37.0-53.0); IMMATURE GRANULOCYTE # 0.1 K/uL (0.0-0.3); IMMATURE GRANULOCYTE % 0.7 %; LYMPHOCYTE # 1.2 K/uL (0.8-4.0); LYMPHOCYTE % 10.1 %; MCH 29.4 pg (27.0-34.0); MCHC 31.4 gm/dL (32.0-36.5); MCV 93.5 fl (83.0-98.0); MONOCYTE # 1.8 K/uL (0.0-1.0); MONOCYTE % 14.7 %; MPV 9.4 fl (9.4-12.4); NEUTROPHIL # (ANC) 8.3 K/uL (1.4-9.0); NEUTROPHIL % 68.2 %; NRBC % 2.6 /100WBC (0-0.00); WBC 12.2 K/uL (4.0-11.0)
[2017-02-04 10:14] LABS: PLATELET COUNT 345 K/uL (150-450)
[2017-02-04 10:20] LABS: INR - (THERAPEUTIC) 1.1 (0.9-1.1); PROTIME 12.1 SECONDS (9.6-11.1); PTT 27 SECONDS (25-32)
[2017-02-04 10:32] LABS: ALBUMIN 2.9 gm/dL (3.5-5.0); ALK PHOS 156 IU/L (33-138); ALT 53 IU/L (12-78); ANION GAP 13.3 (10.0-19.0); AST 57 IU/L (10-40); BLOOD UREA NITROGEN 21 mg/dL (6-24); CALCIUM 8.7 mg/dL (8.5-10.5); CHLORIDE 103 mMol/L (96-110); CO2 28 mMol/L (22-32); CPK 25 IU/L (35-332); CREATININE 1.5 mg/dL (0.6-1.3); ESTIMATED GFR (MDRD EQUATION) 47; POTASSIUM 4.3 mMol/L (3.7-5.1); SODIUM 140 mMol/L (135-145); TOTAL PROTEIN 6.5 g/dL (6.0-8.4)
[2017-02-04 10:35] LABS: TOTAL BILIRUBIN 0.1 mg/dL (0.0-1.5)
[2017-02-04 11:19] LABS: BLOOD URINE 150 /UL (NEGATIVE); COLOR URINE RED (YELLOW); GLUCOSE URINE NEGATIVE (NEGATIVE); KETONE URINE NEGATIVE (NEGATIVE); LEUKOCYTES URINE NEGATIVE /UL (NEGATIVE); NITRITE URINE NEGATIVE (NEGATIVE); PROTEIN URINE 500 mg/dL (NEGATIVE); TURBIDITY URINE 4+ (CLEAR); UROBILINOGEN URINE NORMAL (NORMAL)
[2017-02-04 11:27] LABS: BACTERIA URINE NEGATIVE (NEGATIVE); EPITHELIAL URINE NEGATIVE #/HPF (NEGATIVE); RBC URINE FULL FIELD #/HPF (NEGATIVE); WBC URINE NEGATIVE #/HPF (NEGATIVE)
--- NOTE | 2017-02-04 15:34 | NUR ---
PT is 61 y/o male admit for hematuria for hospitalist. No allergies. Pt alert and oriented x3. 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 Contact isolation. Hx pancreatic CA with mets,htn,hypercholest,afib,cardioversion,DVT,IVC filter,edema,anemia, DM,hx ETOH abuse. Pt resides at home by himself. CBI going at med rate and urine is still dark pink to euceda red. Urology to consult.
--- NOTE | 2017-02-04 17:49 | NUR ---
Patient is alert and oriented, VSS, on 1L O2. CBI infusing at a moderate to fast rate with bright red to dark red bloody urine, only need to keep clot free, not try to run clear. Blood sugar was 37 at 1415, D50% 1 amp was given with OJ and crackers with peanut butter. Retake was 101, Dr. Springer was called. Orders to hold levemir tonight and to do Q4 hour accuchecks. Can be up with assist. Cardiac diet.
[2017-02-04 18:30] LABS: HEMATOCRIT 29.8 % (37.0-53.0); HEMOGLOBIN 9.2 g/dL (11.0-16.0)
[2017-02-05 02:48] LABS: HEMOGLOBIN 8.2 g/dL (11.0-16.0)
--- NOTE | 2017-02-05 04:51 | NUR ---
Significant Event: Pt alert and Oriented x3. Cooperative with care. Pts thibodeaux stoped draining around 191. irrigated with some clots out. thibodeaux continued to not drain. notified. Changed to a [address], and was able to get out large clot and CBI restarted wide open. pt ran wide open untill about midnight when pt had increased pressure and thibodeaux stoped draing. CBI stoped and attempted to irrigate again with no success. notified again and was taken down for Cysto. some clots were removed. pt remains on CBI wide open. percet given x2 for complaints of pain. Fentynal given x2 for pain. drainage goes from clear to dark red. pt has increased pressure at times. Low BS last night glucose tabs given with no success the D50 given and was able to return to normal ranges. Q4hr VS. HGB droped from 9.2 to 8.2 .Left chest port intact with GBR. hypotensive other vasquez VSS. 2 L 02 pt has been wearing 02 at home. Follow up:
[2017-02-05 05:52] LABS: HEMATOCRIT 26.3 % (37.0-53.0); HEMOGLOBIN 8.2 g/dL (11.0-16.0); MCHC 31.2 gm/dL (32.0-36.5); MCV 92.9 fl (83.0-98.0); MPV 9.7 fl (9.4-12.4); PLATELET COUNT 278 K/uL (150-450); RBC 2.83 M/uL (3.50-5.50); RDW-CV 20.5 % (11.9-14.6); WBC 14.2 K/uL (4.0-11.0)
[2017-02-05 05:55] LABS: ANION GAP 14.5 (10.0-19.0); CALCIUM 8.2 mg/dL (8.5-10.5); CREATININE 1.6 mg/dL (0.6-1.3)
[2017-02-05 05:58] LABS: POTASSIUM 5.5 mMol/L (3.7-5.1)
[2017-02-05 07:36] LABS: ABSOLUTE NEUTROPHIL CT (ANC) 11.2 K/uL (1.4-9.0); BANDED NEUTROPHIL # 0.4 K/uL (0.0-0.1); BANDED NEUTROPHILS % 3 %; LYMPHOCYTE # 1.1 K/uL (0.8-4.0); LYMPHOCYTE % 8 %; MONOCYTE # 1.7 K/uL (0.0-1.0); SEGMENTED NEUTROPHIL # 10.8 K/uL (1.4-9.0); SEGMENTED NEUTROPHIL % 76 %
--- NOTE | 2017-02-05 16:39 | NUR ---
1639[facility]
--- NOTE | 2017-02-05 16:49 | NUR ---
Patient is alert and oriented, hypotensive, on 2L O2. CBI running at a moderate rate. Did have to be irrigated around 1600 with a large amount of small clots out. Instant relief noted. ACHS accuchecks with mild sliding scale insulin and carb count. Percocet given last at 1449, Dilaudid given at 1559 and a B&O at 1611. Last BS was 219, will treat with sliding scale, he was not sure if he was going to eat supper. Plan is to remove L) kidney with Dr. Garcia on Thursday. Will continue to monitor CBI.
--- NOTE | 2017-02-05 17:48 | NUR ---
SPOKE TO PATIENT REGRADING CM AND OUR ROLE. PATIENT LIVES ALONE IN OWN HOME, HE IS PLANNING ON RETURNING HOME ONCE HE IS READY FOR DISCHARGE. PATIENT DOES NOT ANTICIPATE ANY DISCHARGE NEEDS AT THIS TIME.
--- NOTE | 2017-02-06 04:16 | NUR ---
SIGNIFICANT EVENT: Patient alert & oriented. C/O severe L) flank pain intermittently throughout shift. 5 bags of CBI - fast rate, seems to have prevented clotting and reduced spasms, urine is light yellow. B&O suppository given at 2025. Percocet x2 last at 304. 2 tabs (4 mg) Dilaudid at 010. ACHS accucheck plus carb count coverage with each meal. 960 PO in. IV to L) chest port is SL. Pleasant and cooperative with cares.
[2017-02-06 08:28] LABS: ALBUMIN 2.6 gm/dL (3.5-5.0); ANION GAP 11.9 (10.0-19.0); CALCIUM 8.4 mg/dL (8.5-10.5); MAGNESIUM 2.4 mg/dL (1.3-2.6); POTASSIUM 4.9 mMol/L (3.7-5.1)
[2017-02-06 09:04] LABS: HEMATOCRIT 25.2 % (37.0-53.0)
[2017-02-06 09:14] LABS: HEMOGLOBIN 7.9 g/dL (11.0-16.0)
--- NOTE | 2017-02-06 15:19 | NUR ---
Patient is alert and oriented, hypotensive, on 2L O2. CBI has been clamped off and urine is bloody now. Has been rating pain in his L) flank at a 9 or 10. Dilaudid last given at 1258, it has been changed to Q4 hours PRN. Percocet was given at 1419. He has been resting since. He is an ACHS accucheck with moderate sliding scale and carb count. He refused to eat lunch so no insulin was given at lunch. He can be up in the chair but has not been up so far. He will plan on having surgery to remove the L) kidney either Thursday or Thursday. Palliative care was consulted for pain management.
[2017-02-07 05:51] LABS: ALBUMIN 2.6 gm/dL (3.5-5.0); ANION GAP 11.5 (10.0-19.0); CALCIUM 8.4 mg/dL (8.5-10.5); CREATININE 2.2 mg/dL (0.6-1.3); MAGNESIUM 2.3 mg/dL (1.3-2.6); PHOSPHORUS 3.5 mg/dL (2.5-4.9); POTASSIUM 4.5 mMol/L (3.7-5.1)
[2017-02-07 05:55] LABS: HEMOGLOBIN 7.5 g/dL (11.0-16.0)
--- NOTE | 2017-02-07 08:23 | NUR ---
SIGNIFICANT EVENT: Patient alert & oriented. Slept well throughout shift - pain more controlled tonight. Thibodeaux draining bloody urine - 350 out. Cardiact diet - ate 50% of dinner. ACHS plus carb count insulin - refused carb count coverage for 47 carbs. HS BG of 212. Dilaudid given at 2145 and 0351. Percocet at 2145. 840 PO in, 350 thibodeaux out. 1 sm bm. Metoprolol held at HS d/t hypotension. Pleasant and cooperative with cares. 1 PA ashley.
--- NOTE | 2017-02-07 14:56 | NUR ---
Patient is alert and oriented, hypotensive, on 2L O2. ACHS accucheck with moderate sliding scale and carb count, plus levemir. Did not given coverage for lunch due to patient request. Restarted CBI at a slow-moderate rate, urine is light pink to light yellow. L) chest port. Infusing 2nd unit of PRBC. Up in the chair.
--- NOTE | 2017-02-08 04:09 | NUR ---
Significant Event: Patient continues on slow rate CBI and urine has went from john to pink. Continues to rate pain in left flank about 7-8, at start of shift he said it was 9. Given multiple pain medications (see E-Mar) to keep his pain tolerable and he was able to sleep during the night for at least a couple hours at a time. Vitals have been stable. Follow up: Morning labs.
[2017-02-08 05:04] LABS: ALBUMIN 2.5 gm/dL (3.5-5.0); ANION GAP 11.2 (10.0-19.0); CALCIUM 8.4 mg/dL (8.5-10.5); CREATININE 2.1 mg/dL (0.6-1.3); PHOSPHORUS 3.9 mg/dL (2.5-4.9); POTASSIUM 4.2 mMol/L (3.7-5.1)
[2017-02-08 05:27] LABS: HEMOGLOBIN 9.3 g/dL (11.0-16.0); MCH 29.6 pg (27.0-34.0); MCHC 33.2 gm/dL (32.0-36.5); MCV 89.2 fl (83.0-98.0); MPV 10.8 fl (9.4-12.4); RBC 3.14 M/uL (3.50-5.50); RDW-CV 19.9 % (11.9-14.6)
[2017-02-08 05:29] LABS: PLATELET COUNT 163 K/uL (150-450)
[2017-02-08 06:18] LABS: ABSOLUTE NEUTROPHIL CT (ANC) 7.8 K/uL (1.4-9.0); LYMPHOCYTE # 1.8 K/uL (0.8-4.0); LYMPHOCYTE % 15 %; SEGMENTED NEUTROPHIL # 7.8 K/uL (1.4-9.0); SEGMENTED NEUTROPHIL % 65 %
--- NOTE | 2017-02-08 17:13 | NUR ---
AAOx3. Cooperative with cares. VSS, afebrile, on 2liters O2, denies n/v. Started Dilaudid VISITOR SERVICES SPECIALIST this afternoon 0.2mg cont/0.1demand/15min LO to L)chest port (GBR). CBI stopped this afternoon for less than an hour; restarted as patient complaint of urgency to void, irrigated x2 with no evacuation possible. Draining well after restarted, light pink w/occasional big clots. Needs frequent cath cares and neosporin. Cardiac diet. BS ac/hs w/moderate SSI. Probable nephrectomy on Thursday.
--- NOTE | 2017-02-09 03:37 | NUR ---
Significant Event: Up to bedside commode x 2 and had 2 small liquid stools. Very weak getting up. Pain is better controlled with POLITICAL SCIENTIST, but sometimes the pain goes up with movement. Ate 100% of dinner meal. Accucheck at HS was 145. Pleasant and cooperative with cares. CBI continues to run at a very slow drip rate. Urine is yellow but blood clots are noted. Earlier attempts to stop CBI were not sucessful. Increased 02 to 2.5 liters. Follow up: Continue to monitor
[2017-02-09 05:29] LABS: ALBUMIN 2.5 gm/dL (3.5-5.0); ANION GAP 10.2 (10.0-19.0); CALCIUM 8.2 mg/dL (8.5-10.5); CREATININE 1.9 mg/dL (0.6-1.3); MAGNESIUM 2.2 mg/dL (1.3-2.6); PHOSPHORUS 3.4 mg/dL (2.5-4.9); POTASSIUM 4.2 mMol/L (3.7-5.1)
[2017-02-09 05:44] LABS: HEMATOCRIT 27.7 % (37.0-53.0); HEMOGLOBIN 9.1 g/dL (11.0-16.0); MCH 29.7 pg (27.0-34.0); MCHC 32.9 gm/dL (32.0-36.5); MCV 90.5 fl (83.0-98.0); MPV 10.9 fl (9.4-12.4); PLATELET COUNT 178 K/uL (150-450); RBC 3.06 M/uL (3.50-5.50); RDW-CV 19.2 % (11.9-14.6); WBC 11.1 K/uL (4.0-11.0)
[2017-02-09 07:38] LABS: ABSOLUTE NEUTROPHIL CT (ANC) 7.1 K/uL (1.4-9.0); BANDED NEUTROPHIL # 0.3 K/uL (0.0-0.1); BANDED NEUTROPHILS % 3 %; LYMPHOCYTE # 1.6 K/uL (0.8-4.0); LYMPHOCYTE % 14 %; MONOCYTE # 1.7 K/uL (0.0-1.0); SEGMENTED NEUTROPHIL # 6.8 K/uL (1.4-9.0); SEGMENTED NEUTROPHIL % 61 %
--- NOTE | 2017-02-09 10:52 | NUR ---
A-SCREENED D/T LOS HX OF PANCREATIC CA W/METS; MASS ON L)KIDNEY. LAST CHEMO WAS 01/26. PLAN IS FOR REMOVAL OF L)KIDNEY ON THURSDAY (02/10) HT: 70 IN. WT: 96.9 KG. BMI: 30.6. PT HAS HAD A 6% WT LOSS OVER THE LAST 3 MOS AND 6 MOS. LABS: NA 137, K+ 4.2, GLU 94, BUN 22, ROLL THREADER OPERATOR 1.9, ALB 2.5 MEDS; MS CONTIN, MAG-OX, FEOSOL, OSCAL+D, COMPAZINE, PRN BOWEL MEDS, LEVEMIR, DILAUDID, NOVOLOG, LACTINEX, FOLIC ACID, VIT B-12, VIT D, PROTONIX, MVI DIET RX: CARDIAC DIET. PO INTAKE 75-100% FOR THE MOST PART EST NUTR NEEDS: 2219-8469 KCALS (20-25 KCALS/KG) 97-116 GM PROTEIN (1.0-1.2 GM/KG) 1 ML FLUID/KG D-AT NUTRITION RISK W/INCREASED NUTRIENT NEEDS R/T CATABOLIC DZ AEB 6% WT LOSS X 3 AND 6 MOS, DX. I-START GLUCERNA BID AT B/D TO PROVIDE ADDITIONAL NUTRIENTS M/E-GOAL: PO INTAKE >/=75% FOR DURATION OF ADMIT 1)F/U PO INTAKE, SUPPLEMENT, AND POC IN 3-5 DAYS 2)ASSIST NEEDED
--- NOTE | 2017-02-09 17:03 | NUR ---
Patient states that he feels a little "off" today (foggy?); but doesn't think it's from SANDBLAST OPERATOR. He said it is different than that. VSS, afebrile, on 2liters O2. SANDBLAST OPERATOR Dilaudid 0.2mg continuous, 0.1mg demand w/15min LO. 20 demands, 18 deliveries. BS ac/hs w/moderate SSI. Port to L)chest w/GBR. NPO tonight @[place] for Left Nephrectomy tomorrow morning w/Dr Garcia. May take pills w/sips if needed. Tolerating Cardiac diet well. CBI running at moderate rate w/dark to moderate red output and occasional clots; rate increased to lighten output.
[2017-02-10 05:49] LABS: ALBUMIN 2.5 gm/dL (3.5-5.0); ANION GAP 11.6 (10.0-19.0); CALCIUM 8.4 mg/dL (8.5-10.5); CREATININE 1.7 mg/dL (0.6-1.3); POTASSIUM 4.6 mMol/L (3.7-5.1)
[2017-02-10 05:58] LABS: HEMATOCRIT 28.1 % (37.0-53.0); HEMOGLOBIN 9.2 g/dL (11.0-16.0)
--- NOTE | 2017-02-10 07:34 | NUR ---
Significant Event:PT IS A/O X3 BUT FORGETFUL AT TIME. PLAN FOR PT TO HAVE A NEPHRECTOMY TODAY. BOLAÑOS IS INTACT W/ CBI RUNNING AT SLOW TO MOD RATE. PT HAS BEEN NPO SINCE MIDNOC. PT IS A 1 ASSIST. AC/HS ACCUCHECKS BS WAS 133 LAST NIGHT. PORT TO L CHEST HAS NS @ 25ML CARRIER FOR DILAUDID FLAME CUTTER WITH 0.8 MG CONTINUOUS THAT WAS ADJUSTED @ 2300, 0.2 MG DEMAND W/ 10 MIN LOCKOUT. PT IS ON 3 L PER NC. Follow up:SURGERY TODAY, CONSENTS ARE ON CHART BUT NEED SIGNED.
[2017-02-10 13:24] LABS: HEMATOCRIT 29.8 % (37.0-53.0)
[2017-02-10 13:26] LABS: HEMOGLOBIN 9.6 g/dL (11.0-16.0)
--- NOTE | 2017-02-10 15:46 | NUR ---
D: Pt forgetful at times. CBI running slowly, urine pale pink to clear this am. Reorients easily. NPO for OR. On Dilaudid FILLER WIPER this am, port to left chest. Left floor at 0800 for OR, son Jim notified at that time of surgery time. Pt transfered to ICU after surgery. ACHS accuchecks.
[2017-02-10 16:55] LABS: HEMATOCRIT 29.3 % (37.0-53.0); HEMOGLOBIN 9.6 g/dL (11.0-16.0); MCH 30.4 pg (27.0-34.0); MCHC 32.8 gm/dL (32.0-36.5); MCV 92.7 fl (83.0-98.0); MPV 10.5 fl (9.4-12.4); PLATELET COUNT 165 K/uL (150-450); RBC 3.16 M/uL (3.50-5.50); RDW-CV 17.4 % (11.9-14.6); WBC 10.8 K/uL (4.0-11.0)
--- NOTE | 2017-02-10 17:03 | NUR ---
Significant Event: Patient alert/oriented x3, but drowsy. Sleeps easily, but arouses easily. Follows all commands x4. O2 at 2L which is what he wears chronically at home. SBP being controlled with Silverio-synephrine gtt, orders to keep MAP >65mmhg, currently in fusing at 0.6mcg/kg/min. Afebrile post operatively. L) flank incision is DRY AND INTACT. Has Shadow drainage observed but marked and hasn't changed in over 2 hours. Donahue draining yellow urine with a few clots observed. Fentanyl/Ropivicane gtt at 8ml/hr and 2ml every 30 mins. Follow up:
[2017-02-10 17:45] LABS: ABSOLUTE NEUTROPHIL CT (ANC) 10.2 K/uL (1.4-9.0); BANDED NEUTROPHIL # 0.3 K/uL (0.0-0.1); BANDED NEUTROPHILS % 3 %; LYMPHOCYTE # 0.3 K/uL (0.8-4.0); LYMPHOCYTE % 3 %; MONOCYTE # 0.3 K/uL (0.0-1.0); SEGMENTED NEUTROPHIL # 9.8 K/uL (1.4-9.0); SEGMENTED NEUTROPHIL % 91 %
--- NOTE | 2017-02-11 04:44 | NUR ---
SIGNIFICANT EVENT: PT BECAME SLIGHTLY CONFUSED THROUGHOUT SHIFT, WOULD PULL AT MEDICAL EQUIPMENT AND MAKE CONFUSED STATEMENTS INCLUDING PLACE AND TIME. PAIN WOULD INTERMITTENTLY INCREASE, MORPHINE AND TYLENOL GIVEN X1. PT BECOMES ANXIOUS AT TIMES. BALTAZAR GTT OFF, NO ISSUES WITH BLOOD PRESSURES. FOLLOW UP:
[2017-02-11 05:12] LABS: ALBUMIN 2.4 gm/dL (3.5-5.0); ANION GAP 11.8 (10.0-19.0); CALCIUM 7.8 mg/dL (8.5-10.5); CREATININE 1.9 mg/dL (0.6-1.3); POTASSIUM 4.8 mMol/L (3.7-5.1)
[2017-02-11 05:13] LABS: PHOSPHORUS 1.7 mg/dL (2.5-4.9)
[2017-02-11 05:46] LABS: HEMATOCRIT 24.2 % (37.0-53.0); MCH 29.6 pg (27.0-34.0); MCHC 33.1 gm/dL (32.0-36.5); MCV 89.6 fl (83.0-98.0); MPV 10.7 fl (9.4-12.4); PLATELET COUNT 189 K/uL (150-450); RDW-CV 17.2 % (11.9-14.6); WBC 11.4 K/uL (4.0-11.0)
[2017-02-11 06:58] LABS: ABSOLUTE NEUTROPHIL CT (ANC) 8.1 K/uL (1.4-9.0); BANDED NEUTROPHIL # 0.7 K/uL (0.0-0.1); BANDED NEUTROPHILS % 6 %; LYMPHOCYTE # 0.7 K/uL (0.8-4.0); LYMPHOCYTE % 6 %; MONOCYTE # 2.9 K/uL (0.0-1.0); SEGMENTED NEUTROPHIL # 7.4 K/uL (1.4-9.0); SEGMENTED NEUTROPHIL % 65 %
--- NOTE | 2017-02-11 10:48 | NUR ---
Significant Event: Alert and oriented x3. Follows commands. PERRLA. Epidural infusing fentanyl/ropivacaine 8 ml/hr. Morphine given x1 for breakthrough pain. Bathed this shift, up to chair this shift. VSS. On 2L NC, ETCO2 monitoring. Donahue catheter intact. Diabetic diet. Cooperative with cares. L) Chest port, good blood return. R) FA Iv saline locked. Transferring to [facility] [place] to assume cares. Follow up: transferring
--- NOTE | 2017-02-11 18:35 | NUR ---
Significant Event: Patient has had trouble with incisional pain since he arrived to floor. Currently he has orders for fentanyl DYE REEL OPERATOR HELPER with ropivicaine epidural--started at 1835 with results pending. Prior to that patient had tried and epidural of fetanyl/ropivicaine and then tried ropivicaine epidural with morphine DYE REEL OPERATOR HELPER and was not achieving good pain control. Dr. Ren is the anesthesiologist who is managing patient's DYE REEL OPERATOR HELPER/Epidural pain management. Urine is clear yellow--no clots noted. Incision to left flank area with surgical dressing over the top. Patient is on a regular diet, but has not had much of an appetite with pain. While Dr. Ren here, epidural dressing was noted to be rolling up, so dressing reinforced. Follow up: Continue to monitor.
--- NOTE | 2017-02-12 04:10 | NUR ---
Significant Event: Pt is alert and oriented. VSS on 2.5L of 02. L)chest port IVF running. IV to the R)fa SL. Donahue draining clear yellow urine. Fentanyl SURGEON ASSISTANT pump started at begining of shift, pt has had noted relief. Ropivacaine epidural. Dressing to L)side of abdomen, drainage marked. ACHS accuchecks. Pt slept for most of shift. Ordered scheduled tylenol and neurotin. Follow Up: Continue to monitor vital signs and pain.
[2017-02-12 05:44] LABS: HEMATOCRIT 23.9 % (37.0-53.0)
[2017-02-12 05:48] LABS: HEMOGLOBIN 7.8 g/dL (11.0-16.0)
--- NOTE | 2017-02-12 08:24 | NUR ---
A - NUTRITION F/U. L) NEPHRECTOMY 02/10. NO NEW LABS. RARE BS. DIET: DIABETIC W/ GLUCERNA BID. INTAKE 0-25% SINCE SURGERY. EST NEEDS: [id number] KCALS, 97-116 GM PROTEIN, 1 ML/KCAL FLUIDS. D - AT RISK W/ INADEQUATE NUTRIENT INTAKE R/T DECREASED APPETITE AEB INTAKE RECORD. I - GOAL: 50% INTAKE BY NEXT REVIEW. M/E - ENCOURAGE ORAL INTAKE; MAY CONSIDER NUTRITION SUPPORT IF INTAKE DOES NOT IMPROVED OVER WEEKEND.
--- NOTE | 2017-02-12 17:12 | NUR ---
Patient is alert and oriented. Epidural was pulled today around 1030. This morning was a tough morning for him, he consistently rated his pain a 10/10. Eventually the medications were changed to MS contin BID, oxycodone 5-10mg, Dilaudid 1mg IVP and then his REGISTERED PUBLIC SURVEYOR was changed from Fentanyl to Dilaudid 0.5 continuous, 0.5 demand with a 10 minute lockout. Since 1230, he has had 10 demands and 10 deliveries. L) chest port needle needs to be changed. Was not able to do that on this shift due to pain issues. Donahue is patent with 1125 out. ACHS accuchecks with 162 this last time. Will treat after he is done eating due to carb count. L) flank dressing has shadow drainage. He is on 3L O2 currently.
--- NOTE | 2017-02-12 17:20 | NUR ---
Patient is alert and oriented. VSS, on 3L. He had a tough morning with rating his pain 10/10. Epidural was pulled around 1030. Fentanyl SPINAL SURGEON continued until about 1245 when it was changed to Dilaudid 0.5 continuous, 0.5 demand with a 10 minute lockout. He was started on Ms Contin, oxycodone, and received 1 mg dilaudid IVP. Pain is now 5/10, he states he doesn't think it will get much better than that. Donahue is patent with 1125ml out. L) chest port needle needs to be changed, was not able to do that with all the pain issues today. ACHS accucheck and carb count. Will treat tonights BS of 162 after he eats. L) flank dressing has shadow drainage.
[2017-02-13 05:10] LABS: ALBUMIN 2.4 gm/dL (3.5-5.0); ANION GAP 11.4 (10.0-19.0); CALCIUM 8.3 mg/dL (8.5-10.5); CREATININE 1.7 mg/dL (0.6-1.3); PHOSPHORUS 3.2 mg/dL (2.5-4.9); POTASSIUM 4.4 mMol/L (3.7-5.1)
[2017-02-13 05:22] LABS: HEMATOCRIT 26.6 % (37.0-53.0); HEMOGLOBIN 8.4 g/dL (11.0-16.0); MCH 29.8 pg (27.0-34.0); MCHC 31.6 gm/dL (32.0-36.5); MPV 10.7 fl (9.4-12.4); RBC 2.82 M/uL (3.50-5.50); RDW-CV 17.4 % (11.9-14.6); WBC 11.2 K/uL (4.0-11.0)
[2017-02-13 05:26] LABS: MCV 94.3 fl (83.0-98.0); PLATELET COUNT 302 K/uL (150-450)
--- NOTE | 2017-02-13 05:41 | NUR ---
Significant Event: Patient alert and oriented X4. Forgetful at times, reorients easily. Port to L) chest, needle needs changed today. Diluadid SOIL SORT WORKER runnng through CADD pump at 0.5mg cont, 0.5 mg demand and 10 min lockout. Patient pump was set for wrong concentration, so pain button was taken away for a while. Patient was very drowsy, but easily arousable and ETCO2 remained stable. Dr. August notified. Patient rating pain at 2-3 currently. Able to sleep well this shfit. ACHS accuchecks. Donahue in place. No clots noted. Scheduled tyelenol. MS contin held last night due to drowsiness. 3 liters oxgyen at night. Follow up: Monitor ETCO2 and drowsiness
[2017-02-13 06:44] LABS: ABSOLUTE NEUTROPHIL CT (ANC) 6.3 K/uL (1.4-9.0); BANDED NEUTROPHIL # 0.4 K/uL (0.0-0.1); BANDED NEUTROPHILS % 4 %; LYMPHOCYTE # 0.9 K/uL (0.8-4.0); LYMPHOCYTE % 8 %; MONOCYTE # 2.8 K/uL (0.0-1.0); SEGMENTED NEUTROPHIL # 5.8 K/uL (1.4-9.0); SEGMENTED NEUTROPHIL % 52 %
--- NOTE | 2017-02-13 17:49 | NUR ---
SIGNIFICANT EVENT: PT AO. VSS, ON 2L O2. TRIED TO TITRATE O2 DOWN, SATS DECREASE WHEN FALLS ASLEEP. HRs HAVE BEEN RUNNING TACHY. UP TO CHAIR WITH 2PA. INCISION TO L SIDE ABDOMEN. LIKES ICE PACK. AC HS ACCUCHECKS, MODERATE SSI, CARB COUNT. LOW BLOOD SUGARS FOR LUNCH (65) TREATED WITH GLUCOSE TABS, CAME UP TO 81. PT REPORTS FEELING SHAKY MID AFTERNOON, SPOT CHECK WAS 143. 1700 CHECK WAS DOWN TO 96. PT IS NOT EATING DINNER, NO SSI OR CARB COUNT GIVEN. ABDOMEN IS DISTENDED, 3WAY ABDOMINAL XRAY THIS AFTERNOON. DULCOLAX SUPPOSITORY GIVEN, NO RESULTS. BOLAÑOS PATENT, 850ML YELLOW OUTPUT. DILAUDID CADD PUMP RUNNING, 0.5CONTINUOUS, 0.5DEMAND, 10MIN LOCKOUT. PT HAD 4 ATTEMPTS WITH 2 DELIVERIES. 24HR BAG CHANGE DONE AT 1730. PORT TO L CHEST, NEEDS 7 DAY CHANGE COMPLETED TONIGHT. CONSULT IN FOR PT/OT. FOLLOW UP: PORT REACCESS, BM, MONITOR BLOOD SUGARS
--- NOTE | 2017-02-14 05:55 | NUR ---
Significant Event:PT IS A/O. PORT TO L CHEST, REACCESSED LAST NIGHT. HAS NS@20 CARRIER FOR DILAUDID CADD. 0.5MG CONT, 0.5 MG DEMAND W/ 10 MIN LOCKOUT, HAD 7 DEMANDS AND 5 DELIVERIES. ACCUCHECKS AC/HS AND CARB COUNT, PT HAS NOT BEEN EATING WELL, BS WAS 110 LAST NIGHT. INCISION TO L SIDE IS OPEN TO AIR W/ ABBE. BOLAÑOS IS INTACT WITH LIGHT YELLOW UOP. PT HAS BEEN HAVING FREQUENT SCANT WATERY BROWM STOOLS, HAD SUPPOSITORY BY DAY SHIFT AND STARTED ON COLACE YESTERDAY. PT IS ON 2 L PER NC. PT LIKES ICE BAG TO L SIDE INCISION. 1-2 ASSIST W/ UP. Follow up:
--- NOTE | 2017-02-14 15:32 | NUR ---
Patient is alert and oriented, slightly hypotensive, on 2L O2. Donahue is patent with yellow urine. Incision to L) flank is stapled and open to air. Up in chair with OT today. Dilaudid BELL MAKER set at 0.5 continuous, 0.5 demand and 10 minute lockout. L) chest port was reaccessed last night. ACHS accuchecks with carb count, no coverage needed today and has not been eating so no carb count.
--- NOTE | 2017-02-15 02:26 | NUR ---
Significant Event:Patient rests in bed throughout the night. Used the bedpan several times but only passed gas. Has used the demand dose on his ICHTHYOLOGIST twice only. Accucheck at HS was 96. No S/S insulin given. Encourage to drink some orange juice and did have some jello for a snack during the night. Voided 1000ml out. Ate poorly at supper. Confused at times. Follow up: Continue to monitor.
[2017-02-15 05:38] LABS: ALBUMIN 2.1 gm/dL (3.5-5.0); ANION GAP 10.9 (10.0-19.0); CALCIUM 9.6 mg/dL (8.5-10.5); CREATININE 1.6 mg/dL (0.6-1.3); PHOSPHORUS 3.9 mg/dL (2.5-4.9); POTASSIUM 4.9 mMol/L (3.7-5.1)
[2017-02-15 05:52] LABS: BASOPHIL # 0.1 K/uL (0.0-0.2); BASOPHIL % 0.6 %; EOSINOPHIL # 1.9 K/uL (0.0-0.5); EOSINOPHIL % 13.3 %; HEMOGLOBIN 8.5 g/dL (11.0-16.0); IMMATURE GRANULOCYTE # 0.3 K/uL (0.0-0.3); IMMATURE GRANULOCYTE % 2.2 %; LYMPHOCYTE # 1.4 K/uL (0.8-4.0); LYMPHOCYTE % 9.7 %; MCH 29.5 pg (27.0-34.0); MCHC 31.5 gm/dL (32.0-36.5); MCV 93.8 fl (83.0-98.0); MONOCYTE # 2.2 K/uL (0.0-1.0); MONOCYTE % 15.2 %; MPV 11.1 fl (9.4-12.4); NEUTROPHIL # (ANC) 8.4 K/uL (1.4-9.0); NRBC % 1.5 /100WBC (0-0.00); RBC 2.88 M/uL (3.50-5.50); RDW-CV 17.1 % (11.9-14.6); WBC 14.2 K/uL (4.0-11.0)
[2017-02-15 05:53] LABS: PLATELET COUNT 517 K/uL (150-450)
--- NOTE | 2017-02-15 15:40 | NUR ---
Patient is alert and oriented, hypotensive, on 2L O2. L) chest port is TKO with Dilaudid PROJECTOR BOOTH OPERATOR from a syringe now. Rate changed to 0.4mg continuous, 0.4mg demand with a 10 minute lockout. Has been up in the chair for most of the day. Ambulated to the bathroom x2 with scant results, also ambulated in the halls for a short while with PT/OT. Donahue is patent with 700ml out. ACHS accuchecks with moderate sliding scale, no coverage needed. Also has carb count, did not cover for either meal, breakfast tray was taken out of room before count could be done and he only had bites of lunch. Incision to L) flank is open to air with bora.
--- NOTE | 2017-02-16 02:43 | NUR ---
Significant Event:Patient rests throughout the shift. Reporting pain at 3-4. Voiding adequate amounts. Eating poorly only bites for supper. Accucheck at HS was 147 with no coverage. Levamir 12 units given per orders. Vitals stables. Complaints of nausea at start of shift and order for Zofran received and given. No further complaints of nausea. Did eat some jello later in the shift. Follow up: Encourage activity.
--- NOTE | 2017-02-16 15:23 | NUR ---
Patient is alert and oriented. Slightly hypotensive, on 2L O2. L) chest port has Dilaudid TEMPLATE WORKER set at 0.4mg continuous, 0.4mg demand with a 10 minute lockout. Godfrey was DC'd at 1510. Had some nausea and a headache this morning gave Zofran and Tylenol. SBA with his home walker and gait belt. Incision on L) flank is stapled and open to air. Ice applied most of the day. ACHS accucheck, moderate SSI and carb count. No coverage needed. Worked with PT and OT, did very well.
--- NOTE | 2017-02-16 17:26 | NUR ---
A-NUTRITION F/U S/P L)NEPHRECTOMY. PANCREATIC CA W/METS HAS HAD C/O NAUSEA; ZOFRAN GIVEN. (+)BM; BOWEL MEDS STARTED LABS: NA 139, K+ 4.9, LGU 120, BUN 24, PORCELAIN ENAMELER 1.6, ALB 2.1 MEDS: ZOFRAN, DILAUSID, PRN MOM, MIRALAX, COLACE DIET RX: CONSISTENT CARB W/GLUCERNA BID. PO INTAKE HAS IMPROVED TODY WITH 25-50% OF HIS MEALS BEING TAKEN. EST NUTR NEEDS: 1217-1341 KCALS AND 97-116 GM PROTEIN D-AT NUTRITION RISK W/INADEQUATE NUTRIENT INTAKE R/T CATABOLIC DZ AEB 6% WT LOSS X3 MOS AND 6 MOS, DX. I-INCREASE GLUCERNA TO TID M/E-GOAL: PO INTAKE >/=50% BY NEXT F/U 1)F/U PO INTAKE AND POC IN 2-3 DAYS 2)ASSIST NEEDED
--- NOTE | 2017-02-17 04:24 | NUR ---
Significant Event: Patient alert and oriented X4. Dilaudid RIBBER running 0.4 continuous, 0.4 demand and 10 [facility] lockout. [facility] Port to L) chest, good blood return. VS q 4 hours. Daily weight. Nurse draw. Vitals stable and on 3 liters oxygen at night. Voiding well. Incision to L) side, stapled. Pain with ambulation. ACHS blood sugars. Follow up: Monitor ETCO2
[2017-02-17 06:09] LABS: HEMATOCRIT 27.9 % (37.0-53.0); HEMOGLOBIN 8.7 g/dL (11.0-16.0); MCH 29.2 pg (27.0-34.0); MCHC 31.2 gm/dL (32.0-36.5); MCV 93.6 fl (83.0-98.0); MPV 10.4 fl (9.4-12.4); RBC 2.98 M/uL (3.50-5.50); RDW-CV 17.2 % (11.9-14.6); WBC 15.5 K/uL (4.0-11.0)
[2017-02-17 06:12] LABS: PLATELET COUNT 654 K/uL (150-450)
[2017-02-17 06:20] LABS: ANION GAP 10.8 (10.0-19.0); CALCIUM 9.3 mg/dL (8.5-10.5); CREATININE 1.8 mg/dL (0.6-1.3); POTASSIUM 4.8 mMol/L (3.7-5.1)
[2017-02-17 06:54] LABS: ABSOLUTE NEUTROPHIL CT (ANC) 9.6 K/uL (1.4-9.0); BANDED NEUTROPHIL # 0.5 K/uL (0.0-0.1); BANDED NEUTROPHILS % 3 %; LYMPHOCYTE # 2.9 K/uL (0.8-4.0); LYMPHOCYTE % 19 %; MONOCYTE # 1.7 K/uL (0.0-1.0); SEGMENTED NEUTROPHIL # 9.2 K/uL (1.4-9.0); SEGMENTED NEUTROPHIL % 59 %
--- NOTE | 2017-02-17 15:21 | NUR ---
Patient is alert and oriented. He runs hypotensive. Afebrile, 2L O2. L) chest port with Dilaudid SYSTEM AUDITOR set at 0.4mg continuous, 0.4mg demand and 10 minute lockout. Voiding well. Small BM this shift. Ambulates with 1 assist, gait belt and walker. Did get dizzy on the way back from the bathroom a short while ago so make sure gait belt is used. Has been feeling a little down today. OT took him down to the [employer] and bought him a strawberry smoothie. That cheered him up a little. Incision to L) side is stapled and open to air. ACHS accuchecks with no coverage given.
--- NOTE | 2017-02-17 17:00 | NUR ---
SUPPORTIVE VISIT: MEET WITH PATIENT HE TELLS ME THAT HIS GOAL IS TO RETURN HOME ONCE HE IS READY FOR DISCHARGE. HE LIVES ALONE BUT HAS FAMILY AND FRIENDS TO HLEP HIM IF NEEDED. PRESENTED TO HIM THE OPTION OF GOING TO SNF OR HHC SERVICE ONCE HE IS READY FOR DISCHARGE. HE TELLS ME " WE WILL SEE" CM WILL CONT TO FOLLOW NEEDED.
--- NOTE | 2017-02-18 04:16 | NUR ---
SIGNIFICANT EVENT: Patient alert, oriented. slightly tachycardic, other VSS on 2L. 1PA to BR. HEADLIGHT ASSEMBLER dc'd at approx 2030 - q2h followup monitoring can DC 0830. 0.2 mg IV Dilaudid q1H PRN for pain given x2, last at 0034. 2 mg PO dilaudid given x 2, last at 0259. L) chest port is SL. R) FA PIV is SL, flushes well but not blood return. 3 voids+400 measured, 3 large BMs. Cooperative with cares.
[2017-02-18 05:13] LABS: HEMATOCRIT 27.2 % (37.0-53.0); HEMOGLOBIN 8.5 g/dL (11.0-16.0); MCH 28.9 pg (27.0-34.0); MCHC 31.3 gm/dL (32.0-36.5); MCV 92.5 fl (83.0-98.0); MPV 10.1 fl (9.4-12.4); PLATELET COUNT 704 K/uL (150-450); RBC 2.94 M/uL (3.50-5.50); RDW-CV 17.2 % (11.9-14.6); WBC 15.6 K/uL (4.0-11.0)
[2017-02-18 05:29] LABS: CALCIUM 9.5 mg/dL (8.5-10.5); CREATININE 1.9 mg/dL (0.6-1.3)
[2017-02-18 05:49] LABS: ABSOLUTE NEUTROPHIL CT (ANC) 9.7 K/uL (1.4-9.0); BANDED NEUTROPHIL # 0.9 K/uL (0.0-0.1); BANDED NEUTROPHILS % 6 %; LYMPHOCYTE % 13 %; MONOCYTE # 0.9 K/uL (0.0-1.0); SEGMENTED NEUTROPHIL # 8.7 K/uL (1.4-9.0); SEGMENTED NEUTROPHIL % 56 %
--- NOTE | 2017-02-18 18:30 | NUR ---
Significant Event: Patient had a rough start with pain control. Did get patient's pain down to a 3-4 this evening. Extended release morphine dose was increased and patient given dilaudid orally more often and this has seemed to work pretty well. Up with 1 assist. Did hold miralax and colace this a.m. as patient stated he had had a few bowel movements throughout the night and would like not to have them this a.m. Only bites for breakfast and mashed potatoes for lunch, but then patient did well for dinner. Follow up: Continue to monitor. Pain control.
--- NOTE | 2017-02-19 05:08 | NUR ---
Significant Event: Patient alert and oriented X4. Up with one person assist. POrt to L) chest is saline locked. Giving PO dilaudid about every 3 hours. Patient rating pain 2-3/10. On 2 liters oxygen. Still monitoring ETCO2, and remains stable. Voiding per urinal tonight. L) side incision noted. Vitals stable. Cooperaitve with cares. ACHS accuchecks. Follow up:
[2017-02-19 06:05] LABS: HEMATOCRIT 27.6 % (37.0-53.0); HEMOGLOBIN 8.6 g/dL (11.0-16.0); MCH 29.1 pg (27.0-34.0); MCHC 31.2 gm/dL (32.0-36.5); MCV 93.2 fl (83.0-98.0); MPV 9.9 fl (9.4-12.4); PLATELET COUNT 729 K/uL (150-450); RBC 2.96 M/uL (3.50-5.50); RDW-CV 17.3 % (11.9-14.6); WBC 14.2 K/uL (4.0-11.0)
[2017-02-19 06:20] LABS: ALBUMIN 2.2 gm/dL (3.5-5.0); ANION GAP 10.6 (10.0-19.0); CALCIUM 8.2 mg/dL (8.5-10.5); CREATININE 1.9 mg/dL (0.6-1.3); PHOSPHORUS 3.3 mg/dL (2.5-4.9); POTASSIUM 4.6 mMol/L (3.7-5.1)
[2017-02-19 08:01] LABS: ABSOLUTE NEUTROPHIL CT (ANC) 6.7 K/uL (1.4-9.0); BANDED NEUTROPHIL # 1.3 K/uL (0.0-0.1); BANDED NEUTROPHILS % 9 %; LYMPHOCYTE # 2.4 K/uL (0.8-4.0); LYMPHOCYTE % 17 %; MONOCYTE # 2.1 K/uL (0.0-1.0); SEGMENTED NEUTROPHIL # 5.4 K/uL (1.4-9.0); SEGMENTED NEUTROPHIL % 38 %
--- NOTE | 2017-02-19 13:44 | NUR ---
A - NUTRITION FOLLOW-UP. S/P L) NEPRECTOMY, PANCREATIC CA WITH METS. PAIN ISSUE. PT REPORTED APPETITE IS IMPROVING, HAD 100% OF BREAKFAST AND LIKES GLUCERNA. LABS: CREA 1.9, ALB 2.2. MEDS: MORPHINE, LEVEMIR, MILD SSI. DIET: CONSISTENT CARB W/ GLUCERNA TID. INTAKE 30% X9 MEALS, RANGE BETWEEN 0-75%. ENCOURAGED PO/ORAL SUPPLEMENT INTAKE, PATIENT VOICED UNDERSTANDING. EST NEEDS: 4695-0078 KCAL, 97-116 GRAMS PROTEIN, FLUID NEEDS: PER MD D - INCREASED NUTRIENT NEEDS RELATED TO CATABOLIS DISEASE PROCESS EVIDENCED BY 6% WT LOSS X3 MONTHS AND 6 MONTHS, DIAGNOSIS. I - WILL CONTINUE W/ GLUCERNA TID. M/E - GOAL: PT WILL BE ABLE TO TOLERATE >50% OF MEALS AND AT LEAST TWO ORAL SUPPLEMENTS PER DAY IN 2-4 DAYS.
--- NOTE | 2017-02-19 14:20 | NUR ---
Significant Event: Patient up with therapy in the [place] and also took a shower with occupational therapy's help. Patient's MS Contin dose increased again to [address] Davison said it would be ok to get patient an extra 30 mg of ms contin now to equal a total of 90 mg. Will give this shortly to patient. Patient still getting dilaudid orally--last given at 1214. Patient slept after that but will probably give more prior to end of shift. Patient did take senna and colace today for bowels since pain medication increased but at this time still refused miralax and wanted to see how stool softeners work before adding miralax back into the mix. If all goes well, Dr. Davison did say there is a possibility of going home in the a.m. Follow up: Continue to monitor. Continued pain control.
--- NOTE | 2017-02-19 15:17 | NUR ---
Talked with Beverly Clark APRN and then went and talked with patient. Discussed home health and [facility]. He agrees to have home health for a short time and I gave him a $50 off coupon to activate [facility] if he decides he wants to start [facility]. He is okay with [facility] following him at home. May get to pr tomorrow, or soon. He says he has family who will come help him and check on him, denies concerns about going home.
--- NOTE | 2017-02-20 04:33 | NUR ---
Significant Event: ALERT AND ORIENTATED X 4. AMBULATES WITH 1 ASSIST. MS CONTIN INCREASED TO 90MG BID. TOLERATED WELL VS REMAINED WNL. PUT ON ETCO2 AND O2 MONITOR. PAIN IS WELL CONTROLLED RATED IT 0 THIS SHIFT. 2L OF O2 RUNNING. DIET REGULAR. HE NORMAL AFFECT IS FLAT. GIVE MIRLAX THIS AM NO BM. PLAN IS TO DISMISS TO HOME IN AM. Follow up:
[2017-02-20 06:11] LABS: CALCIUM 8.5 mg/dL (8.5-10.5); CREATININE 1.9 mg/dL (0.6-1.3)
[2017-02-20 06:24] LABS: BASOPHIL # 0.1 K/uL (0.0-0.2); BASOPHIL % 0.8 %; EOSINOPHIL # 1.3 K/uL (0.0-0.5); EOSINOPHIL % 9.4 %; HEMATOCRIT 28.1 % (37.0-53.0); HEMOGLOBIN 8.7 g/dL (11.0-16.0); IMMATURE GRANULOCYTE # 0.6 K/uL (0.0-0.3); IMMATURE GRANULOCYTE % 4.7 %; LYMPHOCYTE # 1.9 K/uL (0.8-4.0); MCH 29.1 pg (27.0-34.0); MONOCYTE # 2.5 K/uL (0.0-1.0); MONOCYTE % 18.5 %; MPV 10.3 fl (9.4-12.4); NEUTROPHIL % 52.6 %; NRBC % 0.6 /100WBC (0-0.00); PLATELET COUNT 803 K/uL (150-450); RBC 2.99 M/uL (3.50-5.50); RDW-CV 17.6 % (11.9-14.6); WBC 13.3 K/uL (4.0-11.0)
[2017-02-20] MEDS ORDERED: TYLENOL EXTRA500 MG PO (13:58)
[2017-02-20] MEDS ORDERED: NEURONTIN100 MG PO (14:02)
[2017-02-20] MEDS ORDERED: MS CONTIN30 MG PO (14:14)
[2017-02-20] MEDS ORDERED: DILAUDID 4MG4 MG PO (14:22)
--- NOTE | 2017-02-20 14:45 | NUR ---
Patient discharging home today with [facility] to follow at home. Let pt know they will contact him early next week at home to set up time to come visit, he is okay with that. Called [facility] and let them know pt going home today and faxed them face to face order sheet and dc orders.
--- NOTE | 2017-02-20 15:10 | NUR ---
D:Orders received for patient to be dismissed. Dismissal instructions were prepared and reviewed with the patient. The instructions were reviewed in person with pt by the virtual nurse per pt request and the changes/additions to medications were highlighted with marker so pt could be sure to note these at home. The following information was reviewed with the patient: diet and activity recommendations, incisional care for home, s/s of infection to monitor for and to report to MD if any occur, home medications/new medications, and plans for follow up appointments with Dr. Maier, Dr. Garcia and Dr. Calvillo. Explained to patient that Home Health would be following along with him and would be getting in touch about setting up a time to visit him. Mehdi teaching information given to and reviewed with patient on the following topics:Discharge Instructions for Nephrectomy, Dilaudid, Gabapentin and Preventing Deep Vein Thrombosis. R:The patient verbalized understanding of teaching after we reviewed it all and highlighted medication changes/additions and denied further questions at that time. P:The patient's primary nurse, Ирина PARKS, was informed that the patiient's paperwork had been completed. The patient will be dismissed later this afternoon when his ride arrives. Lalit PARKS
--- NOTE | 2017-02-26 11:14 | NUR ---
Made two attempts to call patient for a post hospitalizatin follow up call. Left message on first call, with no return call. No answer on attempt on another day.
== END 2017-02-20 16:30 | disposition home health service (06) | DRG 657 ==
LOC: GMED 09:19 → GMSU 13:05 → GICU 02-10 14:59 → GMSU 02-11 11:06
PROVIDERS: Emergency Medicine; Family Medicine; Internal Medicine; Nurse Anesthetist, Certified Registered; Nurse Practitioner Family; Physician Assistant; Urology; ADMIT Family Medicine
PROC: 0TCB8ZZ Extirpation of Matter from Bladder, Via Natural or Artificial Opening Endoscopic (ICD-10-PCS; 2017-02-05)
PROC: 30233N1 Transfusion of Nonautologous Red Blood Cells into Peripheral Vein, Percutaneous Approach (ICD-10-PCS; 2017-02-07)
PROC: 00HU33Z Insertion of Infusion Device into Spinal Canal, Percutaneous Approach (ICD-10-PCS; principal; 2017-02-10)
PROC: 0TT10ZZ Resection of Left Kidney, Open Approach (ICD-10-PCS; principal; 2017-02-10)
PROC: 30233N1 Transfusion of Nonautologous Red Blood Cells into Peripheral Vein, Percutaneous Approach (ICD-10-PCS; 2017-02-10)
DX: C79.02 Secondary malignant neoplasm of left kidney and renal pelvis (principal); C25.9 Malignant neoplasm of pancreas, unspecified; J96.11 Chronic respiratory failure with hypoxia; C78.01 Secondary malignant neoplasm of right lung; E11.22 Type 2 diabetes mellitus with diabetic chronic kidney disease; E11.649 Type 2 diabetes mellitus with hypoglycemia without coma; N17.9 Acute kidney failure, unspecified; N18.3 Chronic kidney disease, stage 3 (moderate); Z51.5 Encounter for palliative care; K56.0 Paralytic ileus; D62 Acute posthemorrhagic anemia; F11.20 Opioid dependence, uncomplicated; T81.10XA Postprocedural shock unspecified, initial encounter; R31.0 Gross hematuria; N32.89 Other specified disorders of bladder; I12.9 Hypertensive chronic kidney disease with stage 1 through stage 4 chronic kidney disease, or unspecified chronic kidney disease; Z79.4 Long term (current) use of insulin; I48.0 Paroxysmal atrial fibrillation; Z79.01 Long term (current) use of anticoagulants; E66.9 Obesity, unspecified; Z68.32 Body mass index [BMI] 32.0-32.9, adult; D63.1 Anemia in chronic kidney disease; G89.29 Other chronic pain; F10.21 Alcohol dependence, in remission; Z86.711 Personal history of pulmonary embolism; Z86.718 Personal history of other venous thrombosis and embolism; Z87.442 Personal history of urinary calculi; Z86.14 Personal history of Methicillin resistant Staphylococcus aureus infection; Z92.21 Personal history of antineoplastic chemotherapy; Z95.828 Presence of other vascular implants and grafts; R53.1 Weakness; Z99.81 Dependence on supplemental oxygen; Z79.82 Long term (current) use of aspirin; Z86.73 Personal history of transient ischemic attack (TIA), and cerebral infarction without residual deficits; I95.9 Hypotension, unspecified; G89.18 Other acute postprocedural pain; K59.00 Constipation, unspecified
CPT/HCPCS: J0690; J1170; J1650; J1940; J1956; J2001; J2250; J2270; J2370; J2405; J2795; J3010; J7030; J7040; J7050; J7120; P9040; Q0164

== ENCOUNTER 2017-03-17 14:53 | Outpatient (CLI) | payer MEDICARE, OTHER ==
[~2017-03-17 14:53] MED LIST changes: +DILAUDID 4MG4 MG PO; +MS CONTIN30 MG PO; +NEURONTIN100 MG PO; +TYLENOL EXTRA500 MG PO
== END 2017-03-17 21:40 | disposition disaster alternative care site (69) ==
LOC: GOPD 14:53
DX: R10.9 Unspecified abdominal pain (principal); R59.0 Localized enlarged lymph nodes; N40.0 Benign prostatic hyperplasia without lower urinary tract symptoms; I70.90 Unspecified atherosclerosis; J90 Pleural effusion, not elsewhere classified; J47.9 Bronchiectasis, uncomplicated; Z90.5 Acquired absence of kidney; Z90.411 Acquired partial absence of pancreas; Z98.890 Other specified postprocedural states
CPT/HCPCS: J7060; Q9967

== ENCOUNTER 2017-03-23 12:22 | Emergency (ER) | payer MEDICARE, OTHER ==
--- NOTE | ~2017-03-23 | ER ---
PATIENT'S NAME: MARIA LUISA COSME [facility] AGE: 61 Y [address] ROOM: [place] [address] LOCATION: ED ADMIT DATE: 03/23/2017 ER/Outpatient Report DISCHARGE DATE: 03/23/2017 FAMILY PHYSICIAN: Tank Calvillo MD ATTENDING PHYSICIAN: Joshua Damon Admission date and time documented on the medical record. I saw the patient at 1230 hours. CHIEF COMPLAINT: Epigastric pain. HISTORY OF PRESENT ILLNESS: This is a 61-year-old male, who presented with onset of epigastric, possibly left upper quadrant abdominal pain during chemotherapy today. The patient was transferred over here to the emergency room for evaluation. The patient has no shortness of breath, diaphoresis, nausea, or vomiting. No lightheadedness, dizziness, syncope, or near syncope. No fall or trauma. No recent colds, coughs, flus, fever, chills, or sweats. No headache, eyes, ears, nose, throat, neck, or spine pain. No chest pain or shortness of breath. Does have mid upper abdominal pain. No nausea, vomiting, diarrhea, urinary frequency, urgency, or dysuria. No joint or muscle swelling, redness, or pain. No skin eruptions or rash. Does have a history of insulin-dependent diabetes mellitus type 2. The patient has metastatic pancreatic cancer stage IV. He has had a splenectomy, partial pancreatectomy, Whipple's procedure, and left nephrectomy. He is on chemotherapy. He was diagnosed with pancreatic cancer 2-1/2 years ago. HOME MEDICATIONS: See attached medication list. ALLERGIES: NONE. SOCIAL HISTORY: Nonsmoker and nondrinker. SIGNIFICANT PAST MEDICAL HISTORY: Metastatic pancreatic cancer stage IV, insulin-dependent diabetes mellitus type 2, paroxysmal atrial fibrillation, chronic anticoagulation, anemia of chronic disease, chronic hypoxic respiratory failure, hypertension, pulmonary embolism, chronic kidney disease, chronic pain, and right visual loss. OPERATIONS: Splenectomy, partial pancreatectomy with Whipple's procedure, left PATIENT'S NAME: MARIA LUISA COSME [facility] AGE: 61 Y [address] ROOM: [place] [address] LOCATION: ED ADMIT DATE: 03/23/2017 ER/Outpatient Report DISCHARGE DATE: 03/23/2017 FAMILY PHYSICIAN: Tank Calvillo MD ATTENDING PHYSICIAN: Joshua Damon nephrectomy, cystoscopy, IVC filter placement, and lithotripsy. REVIEW OF SYSTEMS: All system reviewed by me are negative except for those discussed in the history of present illness. PHYSICAL EXAMINATION: VITAL SIGNS: Vital signs are on the nursing record, I did review these, see the chart. HEAD: Normocephalic. EYES: Extraocular muscles intact. PERRL. EARS, NOSE, THROAT: Clear. Mucous membranes moist. Teeth, jaw intact. NECK: No nuchal rigidity. No findings of adenopathy. No carotid bruits. SPINE: Negative. LUNGS: Clear. Good air flow. No rales, rhonchi, or wheezes. HEART: Regular. Pulses are palpable. No chest wall or ribcage pain to palpation. ABDOMEN: Soft. Nondistended. Some mild tenderness in the epigastric region. No true guarding, rigidity, or rebound tenderness. Active bowel tones. No organomegaly or abnormal masses palpable. No CVA tenderness. EXTREMITIES: Intact. NEUROVASCULAR: Intact. SKIN: Clear. LABORATORY DATA: Procalcitonin was less than 0.05. Lactate was 1.3. CMS was normal except for an elevated glucose of 147, elevated creatinine of 2.0, low GFR of 34, elevated alkaline phosphatase of 168, magnesium was 2.3. Amylase and lipase were normal. CPK was normal at 26. Point of care cardiac enzymes were normal. ProBNP was 484. White count was 11,400, 87 segs, 5 lymphs, 5 monos, 2 eos, hemoglobin was 10.2 with hematocrit 32.4, and platelet count was 533,000. PTT was 34. Pro-time was 12.5 with an INR of 1.19. CRP was 7.72. EKG showed sinus rhythm. No acute ST elevation, ischemic change, or arrhythmia. Chest x-ray showed no acute infiltrate or changes. IMPRESSION: 1. Epigastric abdominal pain, etiology uncertain, pretty much resolved when he got here to the emergency department. No evidence of cardiac or pulmonary acute changes. 2. History of metastatic pancreatic cancer stage IV with metastasis. He is status post partial pancreatectomy, Whipple's procedure, splenectomy, and left nephrectomy. 3. Insulin-dependent diabetes mellitus type 2. 4. Paroxysmal atrial fibrillation with chronic anticoagulation. 5. Anemia of chronic disease. PATIENT'S NAME: MARIA LUISA COSME [facility] AGE: 61 Y [address] ROOM: [place] [address] LOCATION: ED ADMIT DATE: 03/23/2017 ER/Outpatient Report DISCHARGE DATE: 03/23/2017 FAMILY PHYSICIAN: Tank Calvillo MD ATTENDING PHYSICIAN: Joshua Damon 6. Thrombocytosis. 7. Chronic hypoxic respiratory failure. 8. Hypertension. 9. Past history of pulmonary embolism. 10. History of chronic pain syndrome. 11. Chronic kidney disease. PLAN: The patient dismissed home. Observation. Activity as tolerated. Continue present home medications and care. Follow up with personal physician as needed or as scheduled. Discussion ensued with the patient concerning my findings and recommendations, he understands. MD JAC SHORE/modl /[id number] d: 03/23/[id number] t: 03/24/17 0612, OUTPATIENT REPORT
[~2017-03-23 12:22] MED LIST changes: -CAPECITABINE500 MG PO; -HYDROCORTISONE10 MG PO; -OXYGEN M-15 INH; -PAMELOR25 MG PO; -PROVENTIL OR V6.7 GM INH; -SENNA-EXTRA17.2 MG PO; -TARCEVA150 MG PO; -TYLENOL)(FEVERA80 MG; -ZOFRAN8 M1 PO
[2017-03-23 13:20] LABS: BASOPHIL % 0.1 %; EOSINOPHIL # 0.2 K/uL (0.0-0.5); EOSINOPHIL % 1.8 %; HEMATOCRIT 32.4 % (37.0-53.0); HEMOGLOBIN 10.2 g/dL (11.0-16.0); IMMATURE GRANULOCYTE # 0.1 K/uL (0.0-0.3); IMMATURE GRANULOCYTE % 1.1 %; LYMPHOCYTE # 0.6 K/uL (0.8-4.0); LYMPHOCYTE % 5.2 %; MCH 28.6 pg (27.0-34.0); MCHC 31.5 gm/dL (32.0-36.5); MCV 90.8 fl (83.0-98.0); MONOCYTE # 0.6 K/uL (0.0-1.0); MONOCYTE % 4.8 %; MPV 9.2 fl (9.4-12.4); NEUTROPHIL # (ANC) 9.9 K/uL (1.4-9.0); NRBC % 0.3 /100WBC (0-0.00); RBC 3.57 M/uL (3.50-5.50); RDW-CV 16.6 % (11.9-14.6); WBC 11.4 K/uL (4.0-11.0)
[2017-03-23 13:21] LABS: PLATELET COUNT 533 K/uL (150-450)
[2017-03-23 13:29] LABS: INR - (THERAPEUTIC) 1.19 (0.92-1.07); PROTIME 12.5 SECONDS (9.8-11.4); PTT 34 SECONDS (25-32)
[2017-03-23 13:41] LABS: ALBUMIN 2.7 gm/dL (3.5-5.0); ALK PHOS 168 IU/L (33-138); ALT 34 IU/L (12-78); ANION GAP 12.6 (10.0-19.0); AST 30 IU/L (10-40); BLOOD UREA NITROGEN 22 mg/dL (6-24); CHLORIDE 100 mMol/L (96-110); CO2 27 mMol/L (22-32); CPK 26 IU/L (35-332); ESTIMATED GFR (MDRD EQUATION) 34; MAGNESIUM 2.3 mg/dL (1.8-2.6); POTASSIUM 4.6 mMol/L (3.7-5.1); SODIUM 135 mMol/L (135-145)
[2017-03-23 13:42] LABS: TOTAL BILIRUBIN 0.3 mg/dL (0.0-1.5)
== END 2017-03-23 15:44 | disposition disaster alternative care site (69) ==
LOC: GMED 12:22
PROVIDERS: Emergency Medicine
DX: R10.13 Epigastric pain (principal); I48.0 Paroxysmal atrial fibrillation; D64.9 Anemia, unspecified; D47.3 Essential (hemorrhagic) thrombocythemia; J96.11 Chronic respiratory failure with hypoxia; E11.22 Type 2 diabetes mellitus with diabetic chronic kidney disease; I12.9 Hypertensive chronic kidney disease with stage 1 through stage 4 chronic kidney disease, or unspecified chronic kidney disease; N18.9 Chronic kidney disease, unspecified; C25.9 Malignant neoplasm of pancreas, unspecified

== ENCOUNTER → 2017-03-23 | Outpatient (CLI) | payer MEDICARE, OTHER ==
[~2017-03-23] MED LIST changes: +CAPECITABINE500 MG PO; +HYDROCORTISONE10 MG PO; +OXYGEN M-15 INH; +PAMELOR25 MG PO; +PROVENTIL OR V6.7 GM INH; +SENNA-EXTRA17.2 MG PO; +TARCEVA150 MG PO; +TYLENOL)(FEVERA80 MG; +ZOFRAN8 M1 PO
== END | disposition disaster alternative care site (69) ==
LOC: GAMB 12:05
DX: R07.9 Chest pain, unspecified (principal); Z79.52 Long term (current) use of systemic steroids; Z79.82 Long term (current) use of aspirin; Z79.4 Long term (current) use of insulin; Z79.891 Long term (current) use of opiate analgesic; Z79.899 Other long term (current) drug therapy
CPT/HCPCS: A0422; A0425; A0427

== ENCOUNTER → 2017-03-31 | Outpatient (CLI) | payer MEDICARE, OTHER ==
[~2017-03-31] MED LIST changes: +CAPECITABINE500 MG PO; +HYDROCORTISONE10 MG PO; +OXYGEN M-15 INH; +PAMELOR25 MG PO; +PROVENTIL OR V6.7 GM INH; +SENNA-EXTRA17.2 MG PO; +TARCEVA150 MG PO; +TYLENOL)(FEVERA80 MG; +ZOFRAN8 M1 PO
== END | disposition disaster alternative care site (69) ==
LOC: LFPA 13:27
DX: R50.9 Fever, unspecified (principal); N30.00 Acute cystitis without hematuria

== ENCOUNTER → 2017-04-01 | Outpatient (CLI) | payer MEDICARE, OTHER ==
[2017-04-01 16:50] LABS: BASOPHIL % 0.1 %; EOSINOPHIL # 0.2 K/uL (0.0-0.5); EOSINOPHIL % 2.3 %; HEMATOCRIT 28.1 % (37.0-53.0); HEMOGLOBIN 8.6 g/dL (11.0-16.0); IMMATURE GRANULOCYTE # 0.1 K/uL (0.0-0.3); IMMATURE GRANULOCYTE % 1.2 %; LYMPHOCYTE # 0.9 K/uL (0.8-4.0); LYMPHOCYTE % 9.2 %; MCH 28.2 pg (27.0-34.0); MCHC 30.6 gm/dL (32.0-36.5); MCV 92.1 fl (83.0-98.0); MONOCYTE # 1.9 K/uL (0.0-1.0); MONOCYTE % 19.5 %; MPV 9.8 fl (9.4-12.4); NEUTROPHIL # (ANC) 6.6 K/uL (1.4-9.0); NEUTROPHIL % 67.7 %; NRBC % 3.2 /100WBC (0-0.00); PLATELET COUNT 506 K/uL (150-450); RBC 3.05 M/uL (3.50-5.50); RDW-CV 17.1 % (11.9-14.6); WBC 9.7 K/uL (4.0-11.0)
== END ==
LOC: LHHCN 16:35
PROVIDERS: Internal Medicine Hematology & Oncology
DX: Z48.3 Aftercare following surgery for neoplasm (principal); C25.9 Malignant neoplasm of pancreas, unspecified; C79.02 Secondary malignant neoplasm of left kidney and renal pelvis

== ENCOUNTER → 2017-04-02 | Outpatient (CLI) | payer MEDICARE, OTHER | END | disposition disaster alternative care site (69) | LOC: GRAD 08:50 | DX: C25.9 Malignant neoplasm of pancreas, unspecified (principal); C78.00 Secondary malignant neoplasm of unspecified lung; C79.02 Secondary malignant neoplasm of left kidney and renal pelvis; E08.65 Diabetes mellitus due to underlying condition with hyperglycemia; D64.81 Anemia due to antineoplastic chemotherapy; D47.3 Essential (hemorrhagic) thrombocythemia; I95.1 Orthostatic hypotension; J47.9 Bronchiectasis, uncomplicated; R59.0 Localized enlarged lymph nodes; Z98.890 Other specified postprocedural states ==

== ENCOUNTER 2017-05-30 20:06 | Emergency (ER) | payer MEDICARE, OTHER ==
--- NOTE | ~2017-05-30 | ER ---
PATIENT'S NAME: MARIA LUISA COSME [facility] AGE: 61 Y [address] ROOM: [place] [address] LOCATION: ED ADMIT DATE: 05/30/2017 ER/Outpatient Report DISCHARGE DATE: 05/31/2017 FAMILY PHYSICIAN: Tank Calvillo MD ATTENDING PHYSICIAN: aNncy Mcguire Time of Arrival: 2006 hours. Time of Evaluation: 2 hours. IDENTIFICATION: A 61-year-old male. CHIEF COMPLAINT: Left flank pain. HISTORY OF PRESENT ILLNESS: The patient has left abdominal and left flank pain. The patient states he has had that pain since his nephrectomy in January, but it has increased in severity and he did run out of his Dilaudid oral tablets. He has also had diarrhea for the last 2 days. He had a sore throat and was placed on amoxicillin a few days ago. He has had no fever or chills. No chest pain. No cough or shortness of breath. ALLERGIES: NO KNOWN DRUG ALLERGIES. CURRENT MEDICATIONS: 1. NovoLog sliding scale. 2. Levemir 30 units at bedtime. 3. Creon 1200 units 3 times daily. 4. Ferrous sulfate 325 mg b.i.d. 5. Folic acid 1 mg daily. 6. Gabapentin 100 mg every 8 hours. 7. Xarelto 20 mg daily. 8. Trubiotics daily. 9. PreserVision 2 daily. 10. Aspirin 81 mg daily. 11. Mag-Ox 2 daily. 12. Calcium 600 mg twice daily. 13. Vitamin D3, 2000 international units daily. 14. Vitamin B12, 1000 mcg daily. 15. Dilaudid, he states 4 mg tablets every 2 to 4 hours as needed. 16. Dexamethasone first 3 days of chemo. 17. Morphine mg b.i.d. 18. Aspirin when needed. PATIENT'S NAME: MARIA LUISA COSME [facility] AGE: 61 Y [address] ROOM: [place] [address] LOCATION: ED ADMIT DATE: 05/30/2017 ER/Outpatient Report DISCHARGE DATE: 05/31/2017 FAMILY PHYSICIAN: Tank Calvillo MD ATTENDING PHYSICIAN: Nancy Mcguire 19. One a day vitamin. 20. Ventolin inhaler. 21. Tamsulosin 0.4 mg daily. 22. Metoprolol 50 mg daily. 23. Omeprazole 20 mg daily. 24. Nortriptyline 25 mg at bedtime. MEDICAL PROBLEMS: Diabetes type 2, insulin requiring; atrial fibrillation, on chronic anticoagulation; small ischemic strokes; hypertension; chronic kidney disease; DVT and pulmonary emboli; stage IV pancreatic cancer, metastatic to lung and left kidney, status post left nephrectomy; and hematuria, resolved. PRIOR SURGERIES: Left nephrectomy, cystoscopy, cholecystectomy, splenectomy, Whipple procedure, hernia repair, and back surgery. SOCIAL HISTORY: The patient lives here in [place]. Tobacco use, denies. Alcohol use, denies. Drug use, denies. REVIEW OF SYSTEMS: All systems reviewed and negative other than what is noted in the HPI. PHYSICAL EXAMINATION: VITAL SIGNS: Height 5 feet and 10 inches, weight 94.3 kg, blood pressure 136/78, pulse 114, respirations 18, temperature 98.3, and saturations 98% on room air. GENERAL: Pleasant male, in moderate distress. HEENT: Unremarkable. LUNGS: Clear to auscultation. HEART: Regular rate and rhythm. ABDOMEN: Soft. Nondistended. Tender to palpation in the left abdomen and left flank. No rebound or guarding. SKIN: [place], warm, and dry. No lesions or rashes noted. NEURO: No focal deficit. EMERGENCY DEPARTMENT COURSE: CT scan of the chest, abdomen, and pelvis without contrast. CT scan per [facility], no acute findings. The patient had no diarrhea stools here after arrival to the emergency room, so we could not collect a stool sample. The patient was given Dilaudid and Zofran with improvement of his pain. LABORATORY DATA: Sodium 142, potassium 4.4, chloride 110, CO2 of 25, BUN 14, and creatinine 1.9 PATIENT'S NAME: MARIA LUISA COSME [facility] AGE: 61 Y [address] ROOM: [place], [place] [address] LOCATION: [facility] ADMIT DATE: 05/30/2017 ER/Outpatient Report DISCHARGE DATE: 05/31/2017 FAMILY PHYSICIAN: Tank Calvillo MD ATTENDING PHYSICIAN: Nancy Mcguire which is stable. Amylase and lipase normal. Hemoglobin 10.4, hematocrit 32.4, platelets 397, white count 5.2, 35% segs, and 3% bands. UA positive for 50 to 100 white cells. Urine culture is pending. IMPRESSION: 1. Left flank pain. 2. Urinary tract infection. 3. Metastatic cancer. PLAN: Dilaudid 4 mg 1 p.o. q.4 to 6 hours p.r.n. for severe pain, dispensed 12 with 0 refills. Follow up with Dr. Maier in 2 days. Follow up on urine culture results. The patient and his son understand and agree. At this point, he did not want on more oral antibiotics since he has had some diarrhea, so we will stop his current amoxicillin that he is on and have given him Rocephin 1 gram IV for treatment of his UTI and he will follow up on Thursday with the culture results. The patient and his son understand and agree, and all questions have been answered. NANCY MCGUIRE MD CAR/modl /[id number] d: 05/31/172 t: 06/01/17 0310, OUTPATIENT REPORT
[~2017-05-30 20:06] MED LIST changes: -CAPECITABINE500 MG PO; -HYDROCORTISONE10 MG PO; -OXYGEN M-15 INH; -PAMELOR25 MG PO; -PROVENTIL OR V6.7 GM INH; -SENNA-EXTRA17.2 MG PO; -TARCEVA150 MG PO; -TYLENOL)(FEVERA80 MG; -ZOFRAN8 M1 PO
[2017-05-30 21:02] LABS: BILIRUBIN URINE NEGATIVE (NEGATIVE); BLOOD URINE NEGATIVE /UL (NEGATIVE); COLOR URINE YELLOW (YELLOW); GLUCOSE URINE 100 mg/dL (NEGATIVE); KETONE URINE NEGATIVE (NEGATIVE); LEUKOCYTES URINE 500 /UL (NEGATIVE); NITRITE URINE NEGATIVE (NEGATIVE); PROTEIN URINE 15 mg/dL (NEGATIVE); TURBIDITY URINE CLEAR (CLEAR); UROBILINOGEN URINE NORMAL (NORMAL)
[2017-05-30 21:11] LABS: EPITHELIAL URINE 0-2 #/HPF (NEGATIVE); RBC URINE 0-2 #/HPF (NEGATIVE); WBC URINE 50-100 #/HPF (NEGATIVE)
[2017-05-30 21:12] LABS: CRYSTALS URINE CALCIUM OXALATE (NEGATIVE)
[2017-05-30 21:15] LABS: BACTERIA URINE NEGATIVE (NEGATIVE)
[2017-05-30 21:16] LABS: AMORPHOUS URINE 1+ (NEGATIVE)
[2017-05-30 21:33] LABS: YEAST URINE FEW (NEGATIVE)
[2017-05-30 21:35] LABS: WBC CLUMPS URINE FEW (NEGATIVE)
[2017-05-30 21:47] LABS: HEMATOCRIT 32.4 % (37.0-53.0); HEMOGLOBIN 10.4 g/dL (11.0-16.0); MCH 30.2 pg (27.0-34.0); MCHC 32.1 gm/dL (32.0-36.5); MCV 94.2 fl (83.0-98.0); MPV 10.2 fl (9.4-12.4); RBC 3.44 M/uL (3.50-5.50); WBC 4.2 K/uL (4.0-11.0)
[2017-05-30 21:50] LABS: PLATELET COUNT 397 K/uL (150-450); RDW-CV 21.4 % (11.9-14.6)
[2017-05-30 22:03] LABS: ANION GAP 11.4 (10.0-19.0); CALCIUM 8.5 mg/dL (8.5-10.5); CREATININE 1.9 mg/dL (0.6-1.3); POTASSIUM 4.4 mMol/L (3.7-5.1); TOTAL PROTEIN 6.4 g/dL (6.0-8.4)
[2017-05-30 22:08] LABS: TOTAL BILIRUBIN 0.2 mg/dL (0.0-1.5)
[2017-05-30 22:34] LABS: ABSOLUTE NEUTROPHIL CT (ANC) 1.6 K/uL (1.4-9.0); BANDED NEUTROPHIL # 0.1 K/uL (0.0-0.1); BANDED NEUTROPHILS % 3 %; LYMPHOCYTE # 1.5 K/uL (0.8-4.0); LYMPHOCYTE % 35 %; MONOCYTE # 0.5 K/uL (0.0-1.0); SEGMENTED NEUTROPHIL # 1.5 K/uL (1.4-9.0); SEGMENTED NEUTROPHIL % 35 %
== END 2017-05-31 00:30 | disposition disaster alternative care site (69) ==
LOC: GMED 20:06
PROVIDERS: Family Medicine
DX: N39.0 Urinary tract infection, site not specified (principal); C25.9 Malignant neoplasm of pancreas, unspecified; C78.00 Secondary malignant neoplasm of unspecified lung; C79.02 Secondary malignant neoplasm of left kidney and renal pelvis; I48.91 Unspecified atrial fibrillation; I12.9 Hypertensive chronic kidney disease with stage 1 through stage 4 chronic kidney disease, or unspecified chronic kidney disease; N18.9 Chronic kidney disease, unspecified; E11.22 Type 2 diabetes mellitus with diabetic chronic kidney disease; Z90.5 Acquired absence of kidney; Z79.82 Long term (current) use of aspirin; Z79.899 Other long term (current) drug therapy; Z79.4 Long term (current) use of insulin; Z98.890 Other specified postprocedural states; Z90.81 Acquired absence of spleen; Z90.49 Acquired absence of other specified parts of digestive tract; Z86.73 Personal history of transient ischemic attack (TIA), and cerebral infarction without residual deficits; Z86.711 Personal history of pulmonary embolism; Z86.718 Personal history of other venous thrombosis and embolism
CPT/HCPCS: J0696; J1170; J2405; J7030

== ENCOUNTER → 2017-07-12 | Outpatient (CLI) | payer MEDICARE, OTHER ==
[~2017-07-12] MED LIST changes: +CAPECITABINE500 MG PO; +HYDROCORTISONE10 MG PO; +OXYGEN M-15 INH; +PAMELOR25 MG PO; +PROVENTIL OR V6.7 GM INH; +SENNA-EXTRA17.2 MG PO; +TARCEVA150 MG PO; +TYLENOL)(FEVERA80 MG; +ZOFRAN8 M1 PO
== END | disposition disaster alternative care site (69) ==
LOC: GAMB 08:31
DX: R07.9 Chest pain, unspecified (principal); R10.9 Unspecified abdominal pain; Z90.5 Acquired absence of kidney; Z85.528 Personal history of other malignant neoplasm of kidney; Z85.07 Personal history of malignant neoplasm of pancreas; Z79.82 Long term (current) use of aspirin; Z79.4 Long term (current) use of insulin; Z79.52 Long term (current) use of systemic steroids; Z79.891 Long term (current) use of opiate analgesic; Z79.899 Other long term (current) drug therapy
CPT/HCPCS: A0425; A0427

== ENCOUNTER → 2017-07-13 | Outpatient (CLI) | payer MEDICARE, OTHER | END | disposition disaster alternative care site (69) | LOC: GAMB 12:31 | DX: R07.9 Chest pain, unspecified (principal); I48.91 Unspecified atrial fibrillation; R10.9 Unspecified abdominal pain; R00.0 Tachycardia, unspecified; Z85.07 Personal history of malignant neoplasm of pancreas; Z79.891 Long term (current) use of opiate analgesic | CPT/HCPCS: A0422; A0425; A0427 ==

== ENCOUNTER 2017-07-14 16:10 | Inpatient (IN) | payer MEDICARE, OTHER ==
[~2017-07-14] VITALS: Ht 177.8 cm; Wt 97.3 kg
--- NOTE | ~2017-07-14 | HP ---
PATIENT'S NAME: MARIA LUISA COSME [facility] AGE: 61 Y [address] ROOM: [address] [address] LOCATION: [facility] ADMIT DATE: 07/14/2017 History & Physical DISCHARGE DATE: FAMILY PHYSICIAN: Tank Calvillo MD ATTENDING PHYSICIAN: Jennifer ALBERTO DATE OF SERVICE: CHIEF COMPLAINT: Hypertension. HISTORY OF PRESENT ILLNESS: The patient is a 61-year-old gentleman with past medical history of pancreatic cancer with mets, currently on chemo; diabetes mellitus type 2; history of DVT; and chronic kidney disease, who presents here with hypotension and worsening of chronic abdominal pain from Dr. Maier' office. The patient reports that for the past week or so, he has been experiencing sore throat and difficulty swallowing. The patient was recently started on Xeloda and erlotinib for his progression of pancreatic cancer. Since that started, the patient has been experiencing difficulty swallowing due to pain that is elicited. The patient reports that his oral intake has decreased significantly. He reports that he has lost close to 8 pounds within a week. The patient was recently seen in the emergency department for acute on chronic abdominal pain and has had a CT of the abdomen which was stable compared to last. The patient was given IV Dilaudid and was discharged home. However, today he presents to Dr. Maier' office for his routine visit and was found to have orthostatic hypotension with systolic blood pressure in the 70s. The patient was given 2 L of IV fluid and was given steroids with improvement of blood pressure, and the patient was transferred here for further workup. The patient has stage IV pancreatic cancer with mets to left kidney, lungs, and liver, and has in the past been on multiple treatments and has had surgery for his pancreatitis necrotizing and has had Whipple procedure. The patient also has had left nephrectomy in January 2017 due to intractable hematuria from the pancreatic cancer invading kidney. According to Dr. Maier' outpatient notes, the patient has been on FOLFIRINOX initially, it was stopped due to toxicity. He has been on Gemzar, stopped due to progressive disease, and also has been tried on FOLFOX and stopped and also been tried on oxaliplatin and was stopped due to reaction and progression and also has been on liposomal irinotecan and 5-FU/LV, stopped due to mild progression and increased pain. Currently, on Xeloda and erlotinib. The patient denies any fever, chills, productive cough, nausea, and vomiting. However, he reports diarrhea that has been experiencing for the past week. He reports the diarrhea is nonbloody. The patient denies any dysuria and urinary frequency. PATIENT'S NAME: MARIA LUISA COSME [facility] AGE: 61 Y [address] ROOM: [place] [address] LOCATION: [facility] ADMIT DATE: 07/14/2017 History & Physical DISCHARGE DATE: FAMILY PHYSICIAN: Tank Calvillo MD ATTENDING PHYSICIAN: Jennifer ALBERTO PAST MEDICAL HISTORY: 1. Stage IV pancreatic cancer with mets to the left kidney, lungs, and liver. 2. History of hematuria, secondary to left kidney mets. 3. History of chronic kidney disease, stage 3. 4. Diabetes mellitus type 2, insulin dependent. 5. Paroxysmal atrial fibrillation. 6. History of DVT, status post IVC filter and Coumadin. 7. History of pulmonary embolism. 8. History of chronic right eye vision loss. 9. History of hypertension. 10. Anemia of chronic disease. 11. Chronic pain. SURGICAL HISTORY: 1. IVC filter placement. 2. Embolization of the left kidney by Interventional Radiology and nephrectomy. 3. History of lithotripsy. 4. Whipple's procedure. 5. Splenectomy. FAMILY HISTORY: Father secondary to colon cancer. History of myocardial. SOCIAL HISTORY: The patient denies any history of alcohol, tobacco, or illicit drug use. MEDICATIONS: Currently being reconciled. REVIEW OF SYSTEMS: All systems have been reviewed and are negative except for what I mentioned in the HPI. PHYSICAL EXAMINATION: VITAL SIGNS: Temperature 98.3, blood pressure 120/81, respiratory rate of 20, pulse of 107, and saturating 99% on 2 L. GENERAL APPEARANCE: The patient is lying on bed in no apparent acute distress. HEAD: Normocephalic, atraumatic. EYES: Extraocular muscle intact. NOSE: No nasal discharge. EARS: No ear discharge. MOUTH: Dry oral mucosa. PATIENT'S NAME: MARIA LUISA [facility]ME [facility] AGE: 61 Y [address] ROOM: [place] [address] LOCATION: [facility] ADMIT DATE: 07/14/2017 History & Physical DISCHARGE DATE: FAMILY PHYSICIAN: Tank Calvillo MD ATTENDING PHYSICIAN: Jennifer ALBERTO CHEST: Clear to auscultation bilaterally. HEART: Tachycardic. No murmurs, rubs, or gallops heard. ABDOMEN: Soft, however, tender to touch in the lower abdomen. No rebound tenderness. SKIN: Warm to touch. AIR TURNING MACHINE FEEDER: Alert and oriented x3. Motor and sensory grossly intact. LABORATORY DATA: Labs done as an outpatient today shows white blood cell of 7, hemoglobin of 11, platelet of 616. Potassium of 4.5, sodium of 136, creatinine of 2, BUN of 34, albumin of 3.3, total bilirubin of 1.1, alkaline phosphatase of 137, AST of 42, and ALT 27. Chest x-ray shows stable overall radiographic appearance since imaging on 07/13/2017. ASSESSMENT AND PLAN: 1. Hypotension. The patient is presenting here from Dr. Maier' office with systolic blood pressure in the 70s while standing and systolic blood pressure in the 90s while sitting with tachycardia. Etiology most likely secondary to dehydration as the patient has not been able to eat for the past week or so due to stomatitis and mucositis. The patient was given IV fluid 2 L as an outpatient and received dexamethasone with somewhat improvement of blood pressure, currently blood pressure 120/81. We will continue IV fluid treatment as I think this is secondary to dehydration. When the patient is stable, also we would consider doing a stim test as the patient's blood pressure is somewhat improved also with steroid use. 2. Acute on chronic abdominal pain, secondary to ongoing pancreatic cancer. CT abdomen was done yesterday with no progression of disease. The patient currently on 50 mg morphine extended release twice a day. We will change it to 30 mg twice a day and change Dilaudid from p.o. to IV. We will have 2 mg of IV Dilaudid every 4-6 hours as needed. Also, we will have Palliative Care see the patient. 3. Acute on chronic kidney disease. The patient with baseline creatinine of 1.7, presenting with creatinine of 2. Etiology dehydration. We will continue IV fluid treatment. 4. Stomatitis. Etiology secondary to chemotherapy, especially erlotinib use. We will start the patient on lidocaine viscous 2% mucosal solution as needed. We will start the patient on clear liquid diet. 5. Diabetes mellitus type 2. Stable. Continue insulin regimen. 6. Paroxysmal atrial fibrillation, on Xarelto. 7. History of deep venous thrombosis, status post IVC. 8. Pulmonary embolism. Continue Xarelto use. 9. Chronic right eye vision loss. The patient is being followed by PATIENT'S NAME: MARIA LUISA [facility] AGE: 61 Y [address] ROOM: [place] [address] LOCATION: [facility] ADMIT DATE: 07/14/2017 History & Physical DISCHARGE DATE: FAMILY PHYSICIAN: Tank Calvillo MD ATTENDING PHYSICIAN: Jennifer ABLERTO Ophthalmology as an outpatient. Continue that followup. 10. Hypertension. We will hold hypertensive medication. 11. Stage IV pancreatic cancer. Currently holding current medications. I would to consult Oncology and Palliative Care. Greater than 70 minutes was spent on the patient care. Greater than 50% of the time was spent on direct patient care. Case was discussed with the patient, family, and also Dr. Maier. We will admit the patient for IV fluid and pain control. Code status discussed on admission, code status is full code. MD YAMILET PALOMINO/baljit /[id number] D: T: 301 HISTORY & PHYSICAL
--- NOTE | ~2017-07-14 | CON ---
PATIENT'S NAME: MARIA LUISA COSME [facility] AGE: 61 Y [address] ROOM: [address] [address] LOCATION[place] [facility] [place] ADMIT DATE: 07/14/2017 Consultation DISCHARGE DATE: FAMILY PHYSICIAN: Tank Calvillo MD ATTENDING PHYSICIAN: Jennifer HOSKINS DATE OF CONSULTATION: 07/15/2017 LOCATION: [facility], room 3206. REFERRING PROVIDER: Jennifer Hoskins MD CHIEF COMPLAINT: Palliative care referral for ongoing goals of care conversation and patient support. HISTORY OF PRESENT ILLNESS: The patient is a 61-year-old gentleman with a past medical history of pancreatic cancer with metastasis to the kidney, lungs, and liver. This gentleman is well known to Palliative Care Services due to previous hospital admissions over the last year or so. He also has a history of diabetes mellitus, type 2 and chronic kidney disease. On the day of admission, the patient presented to Dr. Maier' office for a routine visit and was found to be hypotensive and also had complaints of worsening chronic left abdominal and flank pain. The patient reports that he has gotten to the point where mostly he is in his chair. 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 He reports that over the last week, he has had to start wearing O2 all the time due to increased shortness of breath. He reports that he had a large loose bowel movement at the clinic yesterday, but at the current time, complains of being very gassy and also complains of abdominal distention to the point where he almost feels constipated. He also complains of sores in his mouth and inability to take oral intake due to this. He reports an 8-pound weight loss in the last week or so. He does report that he has somewhat of an appetite and was actually able to eat some chicken broth and a popsicle for breakfast this morning. He denies any nausea or vomiting. He denies any blood in his stools. He denies hematuria. He is not able to tell me what he is on as far as his chemotherapy regimen, but reports that, at the office, it was decided that he would stop his current treatment due to side effects. PREVIOUS OPERATIONS: 1. Embolization of left kidney by Interventional Radiology due to hematuria PATIENT'S NAME: MARIA LUISA COSME [facility] AGE: 61 Y [address] ROOM: [place] [address] LOCATION: [facility] [place] ADMIT DATE: 07/14/2017 Consultation DISCHARGE DATE: FAMILY PHYSICIAN: Tank Calvillo MD ATTENDING PHYSICIAN: Jennifer HOSKINS and eventual nephrectomy. 2. IVC filter placement. 3. Whipple procedure. 4. History of Lithotripsy. 5. Splenectomy with lymph node dissection and partial pancreatectomy. 6. Open cholecystectomy. 7. Exploratory laparotomy. 8. Multiple back surgeries. 9. Port placement. 10. History of renal stents. PAST MEDICAL HISTORY: 1. Stage IV pancreatic cancer metastatic to the left kidney, lungs, and liver. 2. Chronic kidney disease, stage 3. 3. Diabetes mellitus, type 2. 4. Paroxysmal atrial fibrillation. 5. History of PE and DVT. 6. History of ischemic punctate strokes. 7. Anemia of chronic disease. 8. History of hematuria secondary to kidney metastasis, status post nephrectomy. MEDICATIONS: Home medication list includes: 1. Albuterol one puff every 4 hours as needed. 2. Tums as needed. 3. Calcium plus vitamin D 2 tablets twice daily. 4. Vitamin D 2000 units daily. 5. Vitamin B12 1000 mcg daily. 6. Dexamethasone after chemotherapy. 7. Colace 100 mg twice daily as needed. 8. Ferrous sulfate 325 mg twice daily. 9. Folic acid 1 mg daily. 10. Neurontin 100 mg 3 times a day. 11. Hydrocortisone 20 mg daily in the morning and 10 mg at bedtime. 12. Dilaudid 4 mg every 2 hours as needed. 13. NovoLog 5 units subcu 3 times a day. 14. Levemir 25 units subcu at bedtime. 15. Magnesium 800 mg daily. 16. Toprol-XL 50 mg daily. 17. MS Contin 30 mg twice daily. 18. Multivitamin one tablet twice daily. 19. Pamelor 50 mg at bedtime. 20. Omeprazole 20 mg daily. PATIENT'S NAME: MARIA LUISA COSME [facility] AGE: 61 Y [address] ROOM: [place] [address] LOCATION: [facility] [place] ADMIT DATE: 07/14/2017 Consultation DISCHARGE DATE: FAMILY PHYSICIAN: Tank Calvillo MD ATTENDING PHYSICIAN: Jennifer HOSKINS 21. Zofran 8 mg as needed. 22. Creon 3 times daily with meals. 23. MiraLAX 17 g daily. 24. Compazine 10 mg as needed. 25. Xarelto 20 mg daily. 26. Sennosides 2 tablets as needed for constipation. 27. TruBiotics one capsule daily. 28. PreserVision multivitamin one tablet twice daily. ALLERGIES: NO KNOWN ALLERGIES. SOCIAL HISTORY: The patient is . He lives in his own home just outside of [place]. He has 2 sons who check in on him and assist with yard work and household work. They are also his power of j2ee application developer. No history of tobacco or alcohol use. FAMILY HISTORY: The patient's mother is alive and well. His father of colon cancer in his 70s and also had a history of heart disease. REVIEW OF SYSTEMS: GENERAL: Positive for an 8-pound weight loss with decreased appetite, though reports that he is a little bit hungry today. Positive for fatigue. Denies any recent fevers, chills, or night sweats. HEENT: Vision is very poor, this is not new for him. He is no longer driving. No changes in hearing. No headaches. No sinus congestion. RESPIRATORY: Reports increased shortness of breath for the last one week to the point where he is wearing oxygen all the time. No cough. No sputum production. CARDIOVASCULAR: No chest pain or pressure. Denies orthopnea. No lower extremity edema. GASTROINTESTINAL: No nausea or vomiting. Reports having had a large loose stool at the clinic yesterday, but feels as though he is constipated, and his belly is full. Reports that his abdomen is very tender from the midline to the left. Denies any difficulties chewing or swallowing. No blood in his stools. GENITOURINARY: Denies hematuria. No dysuria. MUSCULOSKELETAL: Complains of left flank pain around into the abdomen. This is his chronic pain, but is increasingly worse. No recent falls. He is able to ambulate independently at home. Currently, he rates his pain at 8/10 after receiving IV Dilaudid approximately 4 hours ago. NEUROLOGICAL: Does have some neuropathy in his hands and feet. INTEGUMENTARY: No rashes or open areas. HEMATOLOGICAL: No new bruising or bleeding. PSYCHIATRIC: He has chronic insomnia. PATIENT'S NAME: MARIA LUISA COSME [facility] AGE: 61 Y [address] ROOM: [address] [address] LOCATION: [facility] [place] ADMIT DATE: 07/14/2017 Consultation DISCHARGE DATE: FAMILY PHYSICIAN: Tank Calvillo MD ATTENDING PHYSICIAN: Jennifer HOSKINS PHYSICAL EXAMINATION: VITAL SIGNS: Blood pressure 105/70, heart rate 91, temperature 97.8, respirations 16, and O2 saturation is 100% on 1 L. GENERAL: A middle-aged white male who is lying in the hospital bed. Does not appear to be in any acute distress, though does guard his left flank area and hold the ice pack to it. He is dozing, but easily arousable. HEENT: Normocephalic and atraumatic. Pupils are equal and reactive to light. Sclerae are nonicteric. Conjunctivae pink. Tongue and mucous membranes are dry. There are no white patches in his mouth. CARDIOVASCULAR: Heart tones regular rate and rhythm. I am not able to note a murmur. RESPIRATORY: Respirations are regular and nonlabored. Lung sounds are clear and diminished bilaterally. GASTROINTESTINAL: Abdomen is rounded. Very tender to the touch from midline to the left. Able to palpate the right side without much tenderness. Bowel sounds are hyperactive. MUSCULOSKELETAL: No significant joint deformities. Peripheral pulses are 1+ bilaterally with no clubbing, cyanosis, or edema. SKIN: Warm and dry. No new unusual lesions or rashes. NEUROLOGICAL: Grossly intact. MENTAL STATUS: Unremarkable. IMPRESSION AND PLAN: 1. Left flank and abdominal pain which has gotten worse in the last couple of days. The patient received IV Dilaudid 2 mg x2 since admission yesterday. He reports this does bring his pain down to a tolerable level, but by the time he can have another dose, his pain is back up to an 8 or 9 out of 10. He does also have an ice pack in place. The patient was also given 90 mg of MS Contin this morning. Can consider increasing MS Contin dose. May also consider increasing his Neurontin. May also need to consider MACHINE STUFFER AUTOMATIC until we can get this pain back down. In the past, his pain has been difficult to control, but Dilaudid has worked best for him. 2. Stomatitis. The patient currently has p.r.n. lidocaine swish and spit ordered. Would consider ordering Magic mouthwash t.i.d. before meals so that he is getting it more consistently as he does have somewhat of an appetite, so hopefully, he can eat. 3. Code status. The patient is a full code. His sons are his power of j2ee application developer. Provided a supportive visit. Reviewed the patient's past medical history over the last 5 months since he was last seen by Palliative Care. The patient reports that he is not sure where the plan is as far as oncology. At this point, he does report that they decided to stop his last chemo regimen due to side effects, and he is not sure what there is left to offer. At this point, the patient reports that he needs to get his pain under control before deciding any further goals of care. PATIENT'S NAME: MARIA LUISA COSME [facility] AGE: 61 Y [address] ROOM: [place] [address] LOCATION: [facility] [place] ADMIT DATE: 07/14/2017 Consultation DISCHARGE DATE: FAMILY PHYSICIAN: Tank Calvillo MD ATTENDING PHYSICIAN: Jennifer HOSKINS Provided emotional support and active listening as the patient voiced his concerns over his worsening condition. At this point, we will wait to hear from Oncology. Also, discussed the case with Hospitalist Service to work on symptom management. Total visit was 35 minutes, greater than 50% of this time was spent providing education and counseling. Thank you for allowing me to assist this patient and family. RODRIGO RODRIGUEZ NP FOR MD SEYMOUR SOOD/baljit /[id number] d: 07/15/17 1711 t: 08/11/17 1336, CONSULTATION REPORT
--- NOTE | ~2017-07-14 | DS ---
PATIENT'S NAME: MARIA LUISA BARRETT [facility] AGE: 61 Y [address] ROOM: [address] [place], [place] [address] [place] [facility] [place] DATE: 07/14/2017 Discharge Summary DISCHARGE DATE: 07/30/2017 FAMILY PHYSICIAN: Tank Calvillo MD ATTENDING PHYSICIAN: Jennifer Hoskins CONSULTING PHYSICIANS: Юлия Lopez NP and Dara Pizarro NP act as consultants for us during hospitalization for Palliative Care and he was also seen by Dr. Anderson, Oncology and his primary care doctor is Dr. Calvillo and I am dictating this for the attending physician on the day of discharge, she was Dr. Juanita Mcpherson. DISCHARGE DIAGNOSES: 1. End-stage stage IV pancreatic cancer. 2. Pain, secondary to end-stage stage IV pancreatic cancer. 3. Chronic kidney disease, 3. 4. Diabetes type 2. 5. Poymqs-mk-lwvggmg disease. 6. Recent sepsis, secondary to C. diff, status post treatment with vancomycin. 7. Hiccups. DISCHARGE MEDICATIONS: 1. Dilaudid REFRIGERATION ENGINE OPERATOR. 2. MS Contin 60 mg p.o. twice daily. 3. Tylenol 650 mg p.o. q.4 h. p.r.n. pain or fever. 4. Tylenol 650 mg rectally q.4 h. p.r.n. pain or fever. 5. Atropine 1% drops 1 or 2 drops sublingually q.4 h. p.r.n. increased respiratory secretions. 6. Dulcolax suppository 10 mg rectally daily p.r.n. 7. Thorazine 25 to 50 mg p.o. t.i.d. p.r.n. hiccups. 8. Haldol 1 mg p.o. hourly p.r.n. delirium or confusion. 9. Haldol 1 mg IV hourly p.r.n. delirium or confusion. 10. Haldol 1 mg subcu hourly p.r.n. delirium or confusion. 11. Dilaudid 2 mg IV q.4 h. p.r.n. 12. Dilaudid 4 mg p.o. q.2 h. p.r.n. 13. Ativan 0.5 mg p.o. or sublingual q.2 h. p.r.n. anxiety or shortness of breath. 14. Levsin 0.125 mg sublingually q.4 h. p.r.n. increased respiratory secretions. 15. Lorazepam 0.5 mg IV push hourly p.r.n. anxiety or shortness of breath. 16. Roxanol 5 mg p.o. sublingual hourly p.r.n. pain, dyspnea, or air hunger. 17. Morphine sulfate 1 to 2 mg subcu hourly p.r.n. pain, dyspnea, or air hunger. 18. Morphine sulfate 2 mg IV hourly p.r.n. pain, dyspnea, or air hunger. PATIENT'S NAME: MARIA LUISA BARRETT [facility] AGE: 61 Y [address] ROOM: [id number] [place] [id number] [place] [facility] [place]MIT DATE: 07/14/2017 Discharge Summary DISCHARGE DATE: 07/30/2017 FAMILY PHYSICIAN: Tank Calvillo MD ATTENDING PHYSICIAN: Jennifer Hoskins 19. Ondansetron 8 mg p.o. q.8 h. p.r.n. 20. Ondansetron 4 mg IV q.6 h. p.r.n. nausea. HOSPITAL COURSE: The patient was initially admitted by Dr. Hoskins. Please refer to the admission note for more detailed outline of the patient's presentation. The patient had presented with left flank and abdominal pain worsening over the past few days. The patient has stage IV pancreatic disease with mets to kidney, lung, and liver. He had been under treatments. When the patient was admitted, he was a full code. We did have Palliative and Oncology consult shortly after admission. He was placed on a clear liquid diet and C. diff was obtained as he was having loose stools. This was positive for C. diff. He was started on oral Flagyl. The patient was started on a Dilaudid REFRIGERATION ENGINE OPERATOR given this pain crisis. All things considered, the patient was considered to be a hospice candidate given his history of treatment. Palliative followed with the patient and worked on goals of care. The patient was quite resistant to a DNR order. The patient was counseled at great length concerning this topic. The patient also had grade 3 mucositis, which slowly improved during his hospitalization. The pain is adequately control on the REFRIGERATION ENGINE OPERATOR. The patient was quite debilitated and weak when trying to work with therapies and was barely able to get out of the bed and certainly could not without much assistance. We did ask for Hospice consult on 07/19/2017. We tried to work closely with family and Palliative did visit with him on multiple occasions concerning moving forward with care for Mr. Barrett. Ultimately, he became quite somnolent on 07/23/2017. Discussed the main goal for him was comfort. Ultimately, we felt the patient became septic on 07/24/2017. Family meeting was held. Discussed the natural history of the patient's diagnosis, the futility of CPR. Given the decline, the patient was made DNR by family members. The patient did actually improve by 07/27/2017. They were unable to have plans for have Mr. Barrett to be at home on hospice. Ultimately, we were able to get placement at [facility]. The last 2 days of his hospitalization, he began to have hiccups for which Thorazine seemed to be effective in help managing. On 07/30/2017, the patient's pain and diarrhea were improved. His symptoms seem palliated, we were able to get Mr. Barrett to transfer to [facility] on hospice cares. This discharge took greater than 40 minutes. VIELKA LOWERY PA-C FOR MD JUSTINE PICKERING/baljit PATIENT'S NAME: MARIA LUISA BARRETT [facility] AGE: 61 Y [address] ROOM: [address] [address] [place] [facility] [place] ADMIT DATE: 07/14/2017 Discharge Summary DISCHARGE DATE: 07/30/2017 FAMILY PHYSICIAN: Tank Calvillo MD ATTENDING PHYSICIAN: Jennifer Hoskins /[id number] CC: Tank Calvillo MD d: 07/30/17 9237 t: 08/10/17 1426, DISCHARGE SUMMARY
[~2017-07-14 16:10] MED LIST changes: -CAPECITABINE500 MG PO; -HYDROCORTISONE10 MG PO; -OXYGEN M-15 INH; -PAMELOR25 MG PO; -PROVENTIL OR V6.7 GM INH; -SENNA-EXTRA17.2 MG PO; -TARCEVA150 MG PO; -TYLENOL)(FEVERA80 MG; -ZOFRAN8 M1 PO
[2017-07-14] MEDS ORDERED: PAMELOR25 MG PO (18:32)
[2017-07-14] MEDS ORDERED: OXYGEN M-15 INH (18:34)
--- NOTE | 2017-07-15 04:15 | NUR ---
Significant Event: Patient alert and oriented X4. Up with walker and stand by assist. Isolation precautions for needing c-diff test. No BM this shift. Voids per urinal. Port to L) upper chest accessed in Dr. Maier' office. NS at 100. PRN dilaudid x1 around 2010. PT/OT consult, oncology and palliative concsutl in AM. Clear liquid diet. SBP in low 100s to mid 90s. Telemtry on. Sores noted in mouth. Follow up: Monitor pain
[2017-07-15 05:53] LABS: ALBUMIN 2.3 gm/dL (3.5-5.0); ANION GAP 12.6 (10.0-19.0); CALCIUM 8.1 mg/dL (8.5-10.5); CREATININE 1.7 mg/dL (0.6-1.3); POTASSIUM 4.6 mMol/L (3.7-5.1); TOTAL BILIRUBIN 0.7 mg/dL (0.0-1.5); TOTAL PROTEIN 5.4 g/dL (6.0-8.4)
[2017-07-15] MEDS ORDERED: COLACE100 MG PO (11:06)
[2017-07-15] MEDS ORDERED: HYDROCORTISONE10 MG PO ×2 (11:07→11:08)
[2017-07-15] MEDS ORDERED: TARCEVA150 MG PO (11:08)
[2017-07-15] MEDS ORDERED: CAPECITABINE500 MG PO (11:10)
[2017-07-15] MEDS ORDERED: TYLENOL)(FEVERA80 MG (11:11)
[2017-07-15] MEDS ORDERED: PROVENTIL OR V6.7 GM INH (11:11)
[2017-07-15] MEDS ORDERED: ZOFRAN8 M1 PO (11:12)
[2017-07-15] MEDS ORDERED: SENNA-EXTRA17.2 MG PO (11:12)
--- NOTE | 2017-07-15 16:26 | NUR ---
Significant Event:Is A/O.Isolation for C-diff.Has Lt.upper chest portacath.Has sores in mouth & tongue very reddened.Hard & hurts to swallow.Up with walker & 1 assist.Has alot of Lt.sided pain & some on the Rt.Also back has bothered him this afternoon.Had Dilaudid 2mg IV at 1050 & 1610.Had oral Dilaudid 4mg at 1505.Some dizziness when gets up.Numbness/tingling Lt.foot(nothing new).No N/V. Follow up:
--- NOTE | 2017-07-15 17:23 | NUR ---
Introduced self and role of care management to patient. [place] He uses a walker at home. Has 2 sons in town. Says his oldest son takes care of his yard and helps him. Says he was doing OK until the last week. Does have a C nurse who comes out once a week. He doesn't know which HHC agency she is with. Will make calls and try to find out. He hopes to go home when ready for discharge. Will follow.
[2017-07-16 04:49] LABS: ALBUMIN 2.6 gm/dL (3.5-5.0); ANION GAP 11.7 (10.0-19.0); CALCIUM 8.2 mg/dL (8.5-10.5); CREATININE 1.7 mg/dL (0.6-1.3); PHOSPHORUS 2.6 mg/dL (2.5-4.9); POTASSIUM 3.7 mMol/L (3.7-5.1)
[2017-07-16 04:52] LABS: HEMATOCRIT 29.6 % (37.0-53.0); HEMOGLOBIN 9.9 g/dL (11.0-16.0); MCH 30.7 pg (27.0-34.0); MCHC 33.4 gm/dL (32.0-36.5); MCV 91.9 fl (83.0-98.0); MPV 9.5 fl (9.4-12.4); PLATELET COUNT 615 K/uL (150-450); RBC 3.22 M/uL (3.50-5.50); RDW-CV 19.7 % (11.9-14.6); WBC 4.3 K/uL (4.0-11.0)
[2017-07-16 05:22] LABS: ABSOLUTE NEUTROPHIL CT (ANC) 1.9 K/uL (1.4-9.0); BANDED NEUTROPHIL # 0.7 K/uL (0.0-0.1); BANDED NEUTROPHILS % 16 %; LYMPHOCYTE # 1.3 K/uL (0.8-4.0); LYMPHOCYTE % 31 %; MONOCYTE # 0.9 K/uL (0.0-1.0); SEGMENTED NEUTROPHIL # 1.2 K/uL (1.4-9.0); SEGMENTED NEUTROPHIL % 27 %
--- NOTE | 2017-07-16 16:26 | NUR ---
Call from therapist and says patient would benefit from having therapy when hs goes home. Spoke with Rihc at [facility]. Patient is currently on their services. He only has a skilled nurse, but if ordered PT/OT can see also. Talked to Dr. Mcpherson. Plan when he goes home to have longterm through [facility] continue and to add PT/OT. Will follow.
--- NOTE | 2017-07-16 16:28 | NUR ---
Significant Event:Is A/O.Still alot of pain this morning.CODER OPERATOR of dilaudid at 1213.Is alot more comfortable since started & is able to sleep some.Has had 4 watery stools today.Had IV zofran this morning because of nausea/vomiting.Has LT.chest portacath.Dizzy at times when gets up & lightheaded.BG low this morning & had glucose tabs & then amp of D50.Has tele on,no calls.Up with walker & 1 assist. Follow up:
--- NOTE | 2017-07-17 03:42 | NUR ---
Significant Event: PT AO. VSS ON RA, AFEBRILE. AC HS ACCUCHECKS, MILD SLIDING SCALE. 2100 WAS 156, NO COVERAGE NEEDED. TOLERATING CLEAR LIQUID DIET, TO HAVE YOGURT WITH EACH MEAL. REMAINS IN CONTACT ISOLATION FOR CDIFF. AMBULATES WITH 1PA, WALKER. TELEMETRY ON, CALLED X1 WHEN HR UP TO 150s WHILE PT WAS AMBULATING. PORT TO L CHEST. DILAUDID REVENUE CYCLE CONSULTANT RUNNING 0.4 CONTINUOUS, 0.2 DEMAND WITH 15MIN LOCKOUT. TOTAL OF 9 DEMANDS AND 8 DELIVERIES THIS SHIFT. C/O SORE THROAT AND SORE MOUTH. PT REPORTED HAVING 4 STOOLS THIS SHIFT- NEVER LET STAFF SEE AND ALWAYS FLUSHED TOILET. PLAN IS HOME WITH HOME HEALTH WHEN READY. Follow up: CONTINUE TO MONITOR
[2017-07-17 04:50] LABS: ALBUMIN 2.3 gm/dL (3.5-5.0); ANION GAP 12.7 (10.0-19.0); CALCIUM 8.4 mg/dL (8.5-10.5); CREATININE 1.9 mg/dL (0.6-1.3); MAGNESIUM 1.8 mg/dL (1.8-2.6); PHOSPHORUS 2.2 mg/dL (2.5-4.9); POTASSIUM 3.7 mMol/L (3.7-5.1)
[2017-07-17 09:38] LABS: ANION GAP 11.7 (10.0-19.0); CALCIUM 7.9 mg/dL (8.5-10.5); CREATININE 1.8 mg/dL (0.6-1.3); PHOSPHORUS 3.1 mg/dL (2.5-4.9); POTASSIUM 3.7 mMol/L (3.7-5.1)
[2017-07-17 09:44] LABS: MCH 30.2 pg (27.0-34.0); MCHC 32.1 gm/dL (32.0-36.5); MPV 9.4 fl (9.4-12.4); PLATELET COUNT 585 K/uL (150-450); RBC 2.98 M/uL (3.50-5.50); RDW-CV 20.5 % (11.9-14.6); WBC 4.7 K/uL (4.0-11.0)
[2017-07-17 10:28] LABS: LYMPHOCYTE # 1.1 K/uL (0.8-4.0); LYMPHOCYTE % 23 %; MONOCYTE # 0.6 K/uL (0.0-1.0); SEGMENTED NEUTROPHIL # 0.5 K/uL (1.4-9.0); SEGMENTED NEUTROPHIL % 11 %
[2017-07-17 10:29] LABS: ABSOLUTE NEUTROPHIL CT (ANC) 2.2 K/uL (1.4-9.0); BANDED NEUTROPHIL # 1.7 K/uL (0.0-0.1); BANDED NEUTROPHILS % 36 %
--- NOTE | 2017-07-17 15:11 | NUR ---
Significant Event: Patient is very sleepy and drowsy coming onto shift. Is alert and oriented if you wake him up. BP this morning upon first assessment was 77/39. Dr. Mcpherson notified at the bedside and ordered a 500ml NS bolus and to shut off the DIRECTOR TITLE. Notified after the bolus that the blood pressure was still in the 70's. At that time labs were drawn and Dr. Mcpherson rounded. 1L NS bolus given and IV albumin given, blood pressure mikhail to 100/71. After that time Ирина with palliative came in and spoke with patient about goals. Then Dr. Mcpherson came back and spoke with family about goals. Patient and family still want everything done, but no machines or ventalator. DNI. DIRECTOR TITLE turned back on at this time. Dilaudid DIRECTOR TITLE running at 0.2mg continuous and 0.2mg demand every 15 minutes. Blood pressure since noon has been trending down. Dr. Mcpherson notified around 1415 for low BP- albumin 25% given per orders. Need to recheck BP after albumin is finished. Pain has been well controlled so far with dilaudid DIRECTOR TITLE. Has been resting this afternoon. Measuring strict I/O. Patient stools and urinates together, have been measuring total output from this together. Tele on, no calls. IVF continue to run. Left chest port. Dressing needs changed to the new dressing. Has not taken in much for clear liquids. Accuchecks AC/HS. Has been in the 60's and 70's. IV dextrose given at the 1100 due to patient not wanting to take PO. Blood sugar came up into the 90's. In isolation for C.Diff and MRSA. Up with SBA and walker. Cooperative with cares. Refused a bath. Follow Up: Blood pressure, pain control, port dressing
[2017-07-18 01:42] LABS: CPK 38 IU/L (35-332)
--- NOTE | 2017-07-18 03:27 | NUR ---
Patient is alert and oriented, on room air, tachycardic. Tele on with no calls. L) chest port infusing NS at 100ml with Dilaudid DOCTOR PODIATRIC MEDICINE at 0.2mg continuous, 0.2mg demand with 15 minute lockout. Isolation for C.Diff, has stooled multiple times tonight. Has been nauseous off and on, refused night meds due to nausea. Zofran given x1. Had some chest pain coming back from the bathroom that radiated to stomach, back and L) arm. Dr. August notified, EKG, cardiac enzymes and nitro ordered. After nitro, his pain seemed to decrease from 10/10 to 5/10. EKG and cardiac enzymes were normal. Dr. August thinks it is a flair up from his pancreatic cancer and ordered fentanyl 25mcg IV Q2 hours PRN. He has been resting well since this episode but did complain of pain again when he was up to the commode.
--- NOTE | 2017-07-18 15:23 | NUR ---
A-NUTRITION F/U LABS: NA 145, K+ 3.7, GLU 71, BUN 20, WEB MOBILE DESIGNER 1.8, ALB 2.0 MEDS: LEVEMIR (ADJ), SUBLIMAZE, MAG-OX, ZOFRAN VISITED W/PT; PT STATES THAT APPETITE IS POOR D/T PAIN WITH SWALLOWING AND BACK PAIN. DOES NOT LIKE THE APPLE ENSURE CLEAR; WAS AGREEABLE TO TRYING THE WILDBERRY ENSURE CLEAR. DIET RX: CLEAR LIQUIDS (DAY #4) W/ENSURE CLEAR TID. PO INTAKE 0-75% EST NUTR NEEDS: [id number] KCALS AND 89-125 GM PROTEIN D-AT NUTRITION RISK W/INADEQUATE PROTEIN AND ENERGY INTAKE R/T DIFF SWALLOWING AND ALTERED GI FXN AEB INTAKE RECORDS, WT LOSS, C-DIFF (+), NAUSEA, INTAKE RECORDS, PT REPORT. I-1)D/C APPLE ENSURE CLEAR TID 2)ADD WILDBERRY ENSURE CLEAR TID 3)IF DIET CANNOT BE ADVANCED WITHIN 24-48 HOURS, CONSIDER PARENTERAL NUTRITION. M/E-GOAL: PT WILL TOLERATE CLEAR LIQUIDS WITHOUT DIFFICULTY 1)F/U DIET RX, SUPPLEMENT, GI, AND POC IN 2-3 DAYS 2)ASSIST NEEDED
--- NOTE | 2017-07-18 15:41 | NUR ---
Significant Event: PT AO. BPs RUNNING 104/64-127/80. HRs TACHY RUNNING IN 110s. AFEBRILE, ON ROOM AIR. PORT TO L CHEST (CHANGED ON 07/14), NS RUNNING @ 100ML/HR. DILAUDID FILLING CARRIER RUNNING 0.2 CONTINUOUS, 0.2 DEMAND, 15 MIN LOCKOUT. TOTAL OF 19 DEMANDS, 11 DELIVERIES THIS SHIFT. PRN FENTANYL @ 1045 FOR INCREASED PAIN NOT RELIEVED BY FILLING CARRIER. PRN ZOFRAN X1 THIS AM AND PRN TUMS X1 THIS AM FOR NAUSEA. HAS SCHEDULED TYLENOL AND MS CONTIN WELL. TELEMETRY ON WITH NO CALLS. PT HAD 3 XLRG BM THIS SHIFT. USED COMMODE MOSTLY, BUT DID WALK TO BATHROOM X1. CALL LIGHT WAS PULLED OFF BATHROOM WALL AND PT WAS FOUND YELLING FOR HELP. MAINTENANCE CALLED AND REPAIRED CALL LIGHT IN BATHROOM. TOLERATED SMALL AMOUNT OF CLEAR LIQUID DIET. ACHS ACCUCHECKS, NO COVERAGE NEEDED. FAMILY IN TO VISIT OFF AND ON THROUGH THE SHIFT. Follow up: PAIN CONTROL, MONITOR STOOLS
--- NOTE | 2017-07-19 04:58 | NUR ---
Significant Event: Patient still having loose stools (2 total) reported pain of 8-10 at start of shift. Fentanyl given at 2300 along with tylenol which helped and patient now reports pain of 5. Alert and orientated. Follow up: Labs this am, encourage oral intake.
[2017-07-19 07:17] LABS: HEMATOCRIT 28.5 % (37.0-53.0); HEMOGLOBIN 9.2 g/dL (11.0-16.0); MCH 30.8 pg (27.0-34.0); MCHC 32.3 gm/dL (32.0-36.5); MCV 95.3 fl (83.0-98.0); MPV 10.1 fl (9.4-12.4); PLATELET COUNT 569 K/uL (150-450); RBC 2.99 M/uL (3.50-5.50); RDW-CV 22.2 % (11.9-14.6); WBC 7.5 K/uL (4.0-11.0)
[2017-07-19 07:30] LABS: ALBUMIN 2.2 gm/dL (3.5-5.0); ANION GAP 19.5 (10.0-19.0); CALCIUM 8.3 mg/dL (8.5-10.5); CREATININE 1.9 mg/dL (0.6-1.3); PHOSPHORUS 3.2 mg/dL (2.5-4.9); POTASSIUM 3.5 mMol/L (3.7-5.1)
[2017-07-19 08:02] LABS: ABSOLUTE NEUTROPHIL CT (ANC) 2.9 K/uL (1.4-9.0); BANDED NEUTROPHILS % 26 %; LYMPHOCYTE # 1.4 K/uL (0.8-4.0); LYMPHOCYTE % 19 %; MONOCYTE # 1.6 K/uL (0.0-1.0); SEGMENTED NEUTROPHIL % 13 %
--- NOTE | 2017-07-19 16:22 | NUR ---
Significant Event: PT AO. VSS ON RA, AFEBRILE. PORT TO L CHEST. IVF RUNNING NS @ 30ML/HR. 500ML BOLUS NS GAVE. DILAUDID CLOTHES SEPARATOR RUNNING 0.4 CONTINUOUS, 0.2 DEMAND, 15MIN LOCKOUT. AMBULATED TO BR WITH 1PA, GAITBELT AND WALKER. VERY FATIGUED AFTER. HAD 2 BM THIS SHIFT. REFUSED BAG BATH THIS AM. SLEEPING OFF AND ON THROUGH SHIFT. HOSPICE CONSULT IN AM. PT IS DNI ONLY. REMAINS IN CONTACT ISOLATION FOR CDIFF. Follow up: PAIN CONTROL, BAG BATH, CONTINUE TO MONITOR.
--- NOTE | 2017-07-20 05:07 | NUR ---
Significant Event:Patient reports pain of 7 at times, however does seem to be resting comfortably when assessed. Incontinent of stool and bladder x 1. Did ambulated to the bathroom x 2. Had one large liquid stool. Fentanyl 25mcg given at 0247 for increase pain which was helpful. Zofran also given with HS meds as patient stated he was nauseated after taking so many medications at once. Pleasant with all cares, alert and orientated. Follow up: Continue to monitor and support patient's needs.
[2017-07-20 06:09] LABS: CREATININE 1.6 mg/dL (0.6-1.3); POTASSIUM 3.3 mMol/L (3.7-5.1)
[2017-07-20 06:10] LABS: ANION GAP 12.3 (10.0-19.0)
--- NOTE | 2017-07-20 14:26 | NUR ---
A-NUTRITION F/U SPOKE W/PT RE: WILDBERRY ENSURE CLEAR; PT SAYS HE LIKES THE FLAVOR BETTER THAN THE APPLE, BUT IT DOES BURN HIS THROAT. RECOMMENDED DILUTING IT WITH A BIT OF WATER; PT WAS AGREEABLE TO THIS. PT STATES HIS APPETITE IS POOR. PER CHART REVIEW; PALLIATIVE FOLLOWING AND HOSPICE WILL SEE PT. PT WOULD LIKE TO GO HOME WITH HOSPICE. LABS: NA 146, K+ 3.3, GLU 139, BUN 16, DENTAL INTERNSHIP 1.6, ALB 2.2 NO NEW MEDS DIET RX: CLEAR LIQUIDS (STARTING DAY #6). WILDBERRY ENSURE CLEAR TID. PO INTAKE 0-25% D-AT NUTRITION RISK W/INADEQUATE PROTEIN/CALORIE INTAKE R/T ALTERED GI FXN AEB PAIN W/SWALLOWING, NAUSEA, INTAKE RECORDS, PT REPORT, EXTENDED LENGTH OF TIME ON A CLEAR LIQUID DIET. I-CONTINUE W/ENSURE CLEAR (WILDBERRY); PT AGREEABLE TO THIS M/E-GOAL: PT TO TOLERATE CLEAR LIQUIDS WITHOUT DIFFICULTY 1)F/U PO INTAKE, GI, AND POC IN 3-5 DAYS 2)ASSIST NEEDED
--- NOTE | 2017-07-20 15:10 | NUR ---
SPOKE TO PATIENT REGARDING CM AND OUR ROLE. PATIENT LIVES AT [facility]. HER GOAL IS TO RETURN THERE ONCE SHE IS READY FOR DISCHARGE. IF SHE WERE TO NEED TO GO TO SNF HER FIRST CHOICE IS [facility]. WILL CONT TO FOLLOW NEEDED.
--- NOTE | 2017-07-20 15:45 | NUR ---
Significant Event: Patient up in chair most of the day. Was able to work with physical and occupational therapy today. Lowest pain rating has been a 2 and highest for him today has been a 6. States good pain control with PHARMACY RESIDENT. Stopped magic mouthwash and started saline/soda rinses QID and PRN. Ambulates to and from the bathroom with 1 assist, gait belt and walker. Has only had sips in today. Patient did talk with Dr. Mcpherson and FERNIE Cochran from palliative care and expressed want of hospice care. Follow up: Continue to monitor.
--- NOTE | 2017-07-21 02:45 | NUR ---
Patient is alert and oriented, but depressed and has a flat affect. Dilaudid CREEL HAND set at 0.4 continuous, 0.2 demand with 15 minute lockout. Did have some nausea so zofran given around 2200, all [id number] meds given around midnight. ACHS accuchecks with no coverage needed. Has been sleeping most of the shift. R) chest port needs to be changed today.
[2017-07-21 05:50] LABS: CALCIUM 9.6 mg/dL (8.5-10.5); CREATININE 1.5 mg/dL (0.6-1.3); POTASSIUM 3.2 mMol/L (3.7-5.1)
[2017-07-21 05:54] LABS: ANION GAP 12.2 (10.0-19.0)
--- NOTE | 2017-07-21 17:52 | NUR ---
AAOx3. Cooperative with cares. Up w/1-2 assist, GB, walker depending on his strength (he knows). Used BSC and ambulated to BR today. IVF tko to Lchest port reaccessed today w/GBR. BUSINESS COMMUNICATIONS INSTRUCTOR Dilaudid @0.6mg cont/0.4mg demand 10min LO. Increased pain today lead to increasing BUSINESS COMMUNICATIONS INSTRUCTOR. DNI, but may do CPR. Full chlorhexadine bag bath today. Discussing pain management, palliative onboard, and possibility home w/Hospice; no decisions made.
--- NOTE | 2017-07-22 03:13 | NUR ---
SIGNIFICANT EVENT: Patient sleepy throughout shift. VSS on RA. Dilauidid STUDENT LIFE COORDINATOR - 0.6 continuous, 0.4 demand, 10 minute lockout. DNI only. 1PA walker and gaitbelt. Clear liquids/yogurt diet. Cooperative with cares. ACHS accuchecks - no coverage.
[2017-07-22 06:59] LABS: CALCIUM 8.9 mg/dL (8.5-10.5); CREATININE 1.6 mg/dL (0.6-1.3); POTASSIUM 3.3 mMol/L (3.7-5.1)
[2017-07-22 07:00] LABS: ANION GAP 11.3 (10.0-19.0)
--- NOTE | 2017-07-22 12:30 | NUR ---
SPOKE TO Sunny RODRIGUEZ WITH [facility]. SHE IS FOLLOWING PATIENT CLOSELY AND MEET WITH HIS X SPOSUE TODAY. SHE TELLS DILIP THAT SHE DOES NOT THINK THAT MARIA LUISA CAN GO HOME BUT IF HE DOES SHE AGREES THAT HE NEEDS 24 HOUR CARE GIVERS. SHE IS GOING TO SPEAK WITH THE SONS TO UPDATE THEM ON THIS. THE ETL MANAGER FROM [facility] CAME AND SPOKE TO PATIENT AND HIS X SPOUSE. MAY NEED TO SONSIDER SNF WITH HOSPICE.
--- NOTE | 2017-07-22 17:08 | NUR ---
Oriented. Flat affect. VSS, afebrile, on RA. Dilaudid PILOT PLANT TECHNICIAN @0.6mgcont/ 0.4mgdem/ 10 min LO; had 12 demands, 12 deliveries w/9.19mg total delivered. DNI only. Tolerating very small amounts of clear liquids. VSS, afebrile, tachycardic. BS AC/HS.
--- NOTE | 2017-07-23 04:33 | NUR ---
Pt. alert and oriented - very groggy at times this shift. Flat affect. VSS. RA with ETCO2 for WAREHOUSE HELPER. Dilaudid 0.6 cont, 0.4 demand, and 10min. lockout. 1-2 assist. DNI only. Clear liquid diet. ACHS accuchecks with no ss insulin given this shift. Thorazine for hiccups scheduled. Pt. becoming more incontinent this shift and asked, "what are you doing?" the second time we had to clean him up as if he did not remember being cleaned up previously. Isolation for c-diff. Oral vanco. Cooperative with cares.
--- NOTE | 2017-07-23 12:26 | NUR ---
A - NUTRITION F/U. NO NEW LABS. IN ISO FOR C DIFF. DIET: CLEAR LIQUID W/ ENSURE CLEAR. INTAKE SIPS/BITES TO 50-100%. PALLIATIVE ON BOARD. D - AT RISK W/ INADEQUATE ORAL INTAKE R/T DECREASED APPETITE AND CL DIET AEB INTAKE RECORD AND DIET ORDER. I - GOAL: INTAKE TOLERATED. M/E - WILL CONT TO MONITOR INTAKE AND POC. F/U IN 4-6 DAYS.
--- NOTE | 2017-07-23 17:35 | NUR ---
Significant Event:PT. A/O BUT GROGGY MOST OF DAY. DILAUDID YEAST WASHER DECREASED FROM 0.6 TO 0.4MG CONTINUOUS DOSE, 0.4 DEMAND AND 10MIN LOC. HAD 1-1 AND 4.16MG. TODAY. HAS SLEPT MOST OF DAY. FAMILY HERE. CHEST PORT TO RIGHT CHEST. IN ISOLATION FOR C-DIFF BUT NO STOOLS TODAY. VOIDED 250MLS. HX PANCREATIC CANCER W/METS. 2 ASSIST TO STAND AND PIVOT TO COMMODE. TELE WITH NO CALLS. THORAZINE FOR HICCUPS. Follow up:
[2017-07-23 20:52] LABS: HEMATOCRIT 25.2 % (37.0-53.0); HEMOGLOBIN 8.4 g/dL (11.0-16.0); MCH 30.7 pg (27.0-34.0); MCHC 33.3 gm/dL (32.0-36.5); MPV 9.9 fl (9.4-12.4); PLATELET COUNT 463 K/uL (150-450); RBC 2.74 M/uL (3.50-5.50); RDW-CV 23.4 % (11.9-14.6); WBC 13.7 K/uL (4.0-11.0)
[2017-07-23 21:16] LABS: ALBUMIN 1.6 gm/dL (3.5-5.0); ALK PHOS 88 IU/L (33-138); ALT 13 IU/L (12-78); ANION GAP 19.1 (10.0-19.0); AST 15 IU/L (10-40); BLOOD UREA NITROGEN 22 mg/dL (6-24); CHLORIDE 114 mMol/L (96-110); CO2 13 mMol/L (22-32); CREATININE 1.8 mg/dL (0.6-1.3); POTASSIUM 4.1 mMol/L (3.7-5.1); SODIUM 142 mMol/L (135-145); TOTAL BILIRUBIN 0.4 mg/dL (0.0-1.5); TOTAL PROTEIN 4.6 g/dL (6.0-8.4)
[2017-07-23 21:40] LABS: ABSOLUTE NEUTROPHIL CT (ANC) 10.6 K/uL (1.4-9.0); BANDED NEUTROPHIL # 5.9 K/uL (0.0-0.1); BANDED NEUTROPHILS % 43 %; LYMPHOCYTE # 1.9 K/uL (0.8-4.0); LYMPHOCYTE % 14 %; SEGMENTED NEUTROPHIL # 4.7 K/uL (1.4-9.0); SEGMENTED NEUTROPHIL % 34 %
[2017-07-24] LABS: PROTIME > 200.0 SECONDS (9.8-11.4)
--- NOTE | 2017-07-24 00:55 | NUR ---
Telemetry call indicating pt HR in 140's-150's at approx 2014. Pt found to be ambulating to BR with 1PA, gaitbelt and walker. Shortly after getting to bathroom pt became increasingly weak and fatigued. Returned to bed via WC and VS obtained at 2019 - BP 90/59, 98% on RA, HR 134, CO2 20, RR 21. Consulted with charge, repeated BP (71/45, map 56 - HR 126) and CRYPTOGRAPHIC TECHNICIAN called. Pt BP tracking throughout CRYPTOGRAPHIC TECHNICIAN charted under vitals. 100 mcg Silverio pushed at 2054. 1L saline bolus started. Stat EKG, CBC, CMP, Lactate and 1 set troponins obtained. Dilaudid SAND CUTTING MACHINE OPERATOR had been running - 0.4 continuous/0.4 demand/10 minute lockout - turned off at 2026. Contact isolation for CDiff. Clear liquid diet.
[2017-07-24 02:20] LABS: BILIRUBIN URINE NEGATIVE (NEGATIVE); BLOOD URINE NEGATIVE /UL (NEGATIVE); COLOR URINE YELLOW (YELLOW); GLUCOSE URINE NEGATIVE (NEGATIVE); KETONE URINE 50 mg/dL (NEGATIVE); LEUKOCYTES URINE NEGATIVE /UL (NEGATIVE); NITRITE URINE NEGATIVE (NEGATIVE); PROTEIN URINE 30 mg/dL (NEGATIVE); TURBIDITY URINE CLEAR (CLEAR); UROBILINOGEN URINE NORMAL (NORMAL)
[2017-07-24 02:37] LABS: BACTERIA URINE RARE (NEGATIVE); HYALINE CAST URINE 0-2 #/LPF (NEGATIVE); RBC URINE NEGATIVE #/HPF (NEGATIVE); WBC URINE NEGATIVE #/HPF (NEGATIVE)
--- NOTE | 2017-07-24 04:28 | NUR ---
Shift Summary: PATIENT ARRIVED FROM MED/SURG AT 2105. SBP 85/50. LEVOPHED DRIP STARTED AT 9. DISCONTINUED AT 2338. SEPSIS ORDER SET INITIATED. STRAIGHT CATHED AT 0050 FOR UA. 375 OUTPUT. L) CHEST PORT ACCESSED. CURRENTLY RUNNING NS AT 30ML/HR AND DILAUDID CANE BURNER 0.4MG/HR CONTINUOUS AND 0.4 MG DEMAND. 1 ATTEMPT AND 1 DELIVERY. IV ABX STARTED. CHEST XRAY THIS SHIFT. PATIENT IS ON ROOM AIR WITH CLEAR LUNGS. DISORIENTED TO PLACE. N&T BILATERAL FEET. 2 BM THIS SHIFT. CONTACT ISOLATION FOR CDIFF. RED SPOT ON BUTT WITH SMALL OPEN SPOT. ACCUCHECKS ACHS. Follow Up: KEEP MAP ABOVE 65
[2017-07-24 06:29] LABS: ALBUMIN 1.3 gm/dL (3.5-5.0); ANION GAP 11.1 (10.0-19.0); CALCIUM 7.6 mg/dL (8.5-10.5); CREATININE 1.5 mg/dL (0.6-1.3); MAGNESIUM 2.3 mg/dL (1.8-2.6); POTASSIUM 4.1 mMol/L (3.7-5.1)
[2017-07-24 06:30] LABS: PHOSPHORUS 1.7 mg/dL (2.5-4.9)
--- NOTE | 2017-07-24 16:24 | NUR ---
Significant Event: Patient alert to self, , and time. Disoriented to place and having visual hallucinations as in poicking things out of the air or putting in a dip of chew. Patient follows simple commands at times. Moves extremities spontaneously at times. Confused/forgetful. VSS. Tachycardic and hypotensive. Generalized edema. Afebrile. Room air with sats in the low 90s. LS clear and diminished. XL incontinent void. 2 large loose BMs. Abdominal bruising. Scattered bruising. Bottom red and has one small open area. Aloe applied liberally. L) chest port infusing NS at TKO and DIlaudid PERSONAL FINANCIAL COUNSELOR at 0.4 mg continuous and 0.4 mg bolus q10 min. 2 assist. Repositioned per protocol. Patient made comfort cares this shift. Patient appears comfortable at this time. In isolation for CDIFF. Family here for a short period of time today. Patient to transfer to MSU. Follow up:
--- NOTE | 2017-07-24 19:00 | NUR ---
Patient transferred from ICU at 1710 per bed for comfort cares. Dilaudid RACE ENGINE BUILDER infusing at 0.4 mg/hr with a 0.4 mg bolus and a 10 min lockout. Patient drowsy but awakens easily with verbal stimuli. Portacath to his L) chest patent. Some redness noted to his coccyx/buttocks area. Repositioned to his L) side. Generalized edema noted.
--- NOTE | 2017-07-25 04:16 | NUR ---
Significant Event: Sleeping most of shift. Afebrile. HR tachycardic, all other VSS. Awakens to voice stimulation, answers questions. Confused at times. Repositioned q 2 hours. Port to L) chest infusing without complication. Dilaudid RECYCLING TECHNICIAN continues. 0.4mg/hr, 0.4mg demand, no demands this shift. Routine MS Contin given at 2150. Redness to buttocks area with small open area noted, aloe vesta applied with each depends change. Follow up:
--- NOTE | 2017-07-25 16:46 | NUR ---
Significant event: This am very lethargic and refused 0900 MS Contin. Woke up when family came and took MS Contin and some clear liquids. This afternoon has voided in urinal. Aloe [place] applied to margareth area. No stools this shift, so far. Had 6 demands on SCHOOL PSYCHOLOGIST ASSISTANT. He did visit with family when they were here and would sleep when they were not here.
--- NOTE | 2017-07-26 04:47 | NUR ---
Significant Event: Sleeping for long periods. Afebrile. HR tachycardic, all other VSS. Refused 2200 MS Contin. Awakens to voice stimulation, answers questions. Confused at times. Port to L) chest infusing. Dilaudid PATIENT CARE REPRESENTATIVE continues. 0.4mg/hr and 0.4mg demand dosing with lockout of 10 min. 1 demand and 1 delivery this shift. Taking sips of PO fluids. Incontinent of urine x1 and 1 void per urinal. Had 1 moderate loose stool. Follow up:
--- NOTE | 2017-07-26 18:37 | NUR ---
Significant event: More alert today. Family and friends here to visit today. denies pain. taking some clear liquids. One large liquid BM. Voiding per urinal today. Repositioned q 2 hours.
--- NOTE | 2017-07-27 06:00 | NUR ---
Significant Event: Sleeping well. HR tacycardic, other VSS. Voiding per urinal. 2 large, incontinent loose stools this shift. Taking sips of PO fluids. Port to L) chest infusing without complications. Dilaudid PURCHASING DEPARTMENT CLERK continues. 0.4mg/hr continuous, 0.4mg demand dose with 10 min lockout. 1 demand with 1 delivered. Cooperative with cares. Follow up:
--- NOTE | 2017-07-27 09:24 | NUR ---
PT MADE COMFORT MEASURES. WILL CONTINUE TO PROVIDE DIET RX TOLERATED/ACCEPTED AND ASSIST NEEDED. PT AT LOW NUTRITION RISK.
--- NOTE | 2017-07-27 13:30 | NUR ---
Spoke with Sammie [facility] late a.m. and she says patient is doing better and wants to get out of the hospital. She is waiting for his ex to call her back. Sammie says family does not want him to go to SNF and she thinks [facility] will be best option if possible. She says [facility] and [facility] have worked with Hospice on patients from the hospital before. Sammie says he will go with a TRANSPORTATION WORKER as that has worked best to manage his pain. He does have a port. Called and spoke with Margarita at [facility]. She says currently she is the only RN at [facility] and they can not consider patient with TRANSPORTATION WORKER. Called and spoke with Sandrita RN at [facility]. She says their experiences with Hospice has been good, but have had issues with lunchroom operator in the middle of the night and managing patient's pain until Hospice could get there. She says they will look at his information but not sure that they will accept with a TRANSPORTATION WORKER. Information faxed. Was going to visit with patient and talked to patient's nurs earlier afternoon. She says he is very anxious and feels like he is going to and they have called his sons to the hospital at his request. She says Sammie was back to talk with him. Talked to Sammie and she confirms what his nurse shared with me. She says physically he is stable but is very emotional and feels the won't live through the day. She says to hold off at this time with talking with patient and/or family about next level of care and options. Will follow.
--- NOTE | 2017-07-27 21:35 | NUR ---
Significant Event: PT DENIED PAIN WITH ASSESSMENT. PT HAS SCHEDULED MS CONTIN AND DILAUDID COLOR DEPOSITING MACHINE TENDER. FAMILY WAS HERE WITH HIM FOR BREAKFAST THEN FAMILY LEFT. PT BEGAN CRYING AND BECAME ANXIOUS. HE REQUESTED THAT HIS SONS BE CALLED AND STATED "I DON'T THINK I AM GOING TO MAKE IT MUCH LONGER." PALIATIVE CARE NURSE CALLED AND VISITED WITH PATIENT. HIS FAMILY WAS CALLED AND HE WAS GIVEN ATIVAN. PT ABLE TO REST AND CALMED DOWN EASILY. FAMILY CAME BACK FOR AWHILE. HE THEN RESTED WELL ALL AFTERNOON. HE HAD CLEAR LIQUIDS WITH ASSISTANCE. VOIDING PER URINAL WITH ASSISTANCE.
--- NOTE | 2017-07-28 09:00 | NUR ---
RECEIVED CALL FROM MARCO WITH [facility]. SHE REPORTS THAT SHE HAS MEET WITH GRAZYNA AT [facility] AND HE IS IN AGREEMENT TO GOING TO A SNF. WITH HOSPICE AND THAT HE TOLD HER HE IS OK WITH GOING TO ANY OF THE SNF IN [place]. SHE MADE SEVERAL ATTEMTPS TO CONTACT HIS X BUT SHE DOES NOT RETURN THE CALLS. I RECEIVED CALL FROM TRINH AT [facility] AND SHE INFORMS ME THAT THEY HAVE REVIEWED THE INFO THAT WAS FAXED TO THEM YESERDAY AND THEY DO NOT FEEL THAT THEY CAN MEET MARIA LUISA'S NEEDS. I NOTIFIED TRUDY WITH [employer] Presentain HAD TO LEAVE A MESSAGE ON HER VOICE MAIL.
--- NOTE | 2017-07-28 10:00 | NUR ---
RECEIVED CALL FROM TRUDY WITH [facility]. SHE REPORTS THAT THEY AHVE A MALE BED AT [facility]. SHE WOULD LIKE FOR ME TO FAX INFO TO HER SHE WILL REVIEW IT AND GET BACK TO ME.
--- NOTE | 2017-07-28 14:30 | NUR ---
RECEIVED CALL FROM TRUDY AT [facility] SHE INFORMS ME THAT THEY WILL NOT BE ABLE TO ACCPET PATIENT SINCE HE HAS A STEREO MAP PLOTTER OPERATOR.I EXPLAINED TO HER THAT [facility] WILL MANAGE THE STEREO MAP PLOTTER OPERATOR AND SHE INFORMS ME THAT THEY ARE NOT ABLE TO ACCPET PATIENT DUE TO STEREO MAP PLOTTER OPERATOR. I SPOKE TO PATIENT'S SON AT [facility] BEDSIDE AND UPDATED HIM THAT [facility] WILL NOT BE ABLE TO ACCEPT PATIENT AND THAT [facility] WILL NOT AND THAT ANDREA HAS A BED AND THAT I WILL BE MAKING REFERRAL TO [facility]. HE IS ON THE PHONE WITH GRAZYNA'S X THAT IS ALSO PART OF THE DISCHARGE PLAN AND HE ASKED ME TO UPDATE HER. I EXPALINED TO HER THAT [facility] AND [facility] CAN NOT ACCPET GRAZYNA. SHE TELLS ME THAT SHE WAS NOT AWARE OF THIS PLAN AND THAT SHE THOUGHT THAT THEY WERE TAKING GRAZYNA HOME. I EXPLAINED TO HER THAT HE NEEDS 24 HOUR CARE, AND SHE TELLS ME THAT SHE WAS NOT AWARE OF THIS. AND SHE IS GOING TO " TALK TO THE BOYS " TO SEE WHAT THEY WANT TO DO. I SPOKE TO DILIP WITH [facility] AND SHE REPORTS THAT SHE HAS MEET WITH GRAZYNA AND HIS X SPOUSE AT [facility] AND SHE TOLD HIS X SPOUSE THAT HE NEEDS 24 HOUR CARE AND THEY MEET WITH [facility] LAST WEEK. I TOLD HIS X SPOUSE THAT I WOULD MAKE REFERRAL TO [facility] AND SHE IS OK WITH THIS. SHE WILL GET BACK TO ME TO WHETHER THEY WANT TO TAKE GRAZYNA HOME WITH HOSPICE OR PLACE HIM IN A SNF. I EXPLAINED TO HER HOW THE MEDICARE HOSPICE BENEFIT WORKS IN A SNF. WILL CONT TO FOLLOW NEEDED.
--- NOTE | 2017-07-28 14:43 | NUR ---
D: PATIENT VITAL SIGNS STABLE PATIENT AFEBRILE. PATIENT HAS HAD MULTIPLE CHALLENGES WITH ANXIETY TODAY, ATIVAN GIVEN X 4 LAST AT 1410, THORAZINE GIVEN AT 1410 FOR HICCUPS THAT PATIENT HAS BEEN STRUGGLING WITH. PATIENT PORT INTACT WITH DILAUDID SYSTEM CONFIGURATION SPECIALIST CONTINUING FOR COMFORT CARES. PATIENT DID VOID 350 AND WAS INCONTINENT X 2 OF URINE AND X 1 OF LOOSE DARK BROWN STOOL.
--- NOTE | 2017-07-28 16:29 | NUR ---
RECEIVED CALL FROM TRUDY AT [facility]. SHE MEET WITH THE [facility] AND THEY SPOKE TO [facility] THEY HAVE DECIDED THAT THEY CAN ACCEPT GRAZYNA. WILL SPOKE TO PATIENT'S X SPOUSE AND SONS TOMORROW TO SEE WHAT THEY HAVE DECIDED REGARDING DISCHARGE PLANS.
--- NOTE | 2017-07-29 04:00 | NUR ---
Patient has been sleeping majority of shift. He is confused and somewhat delusional. He thought he had pills in his pocket and then proceeded to take those pills. One extremely large incontinent of bladder and a large incontinent of bowel. Dilaudid SUPPORT SERVICES TECH set at 0.4mg continuous, 0.4mg demand with a ten minute lockout. On 1L O2 for comfort. Looking for placement.
--- NOTE | 2017-07-29 10:30 | NUR ---
RECEIVED CALL FROM TRUDY, SHE HAS SPOKEN TO GRAZYNA'S SONS AND THEY ARE GOING TO GO AND CHECK [facility] AND SEE IT THEY ARE COMFORTABLE WITH GRAZYNA GOING THERE. TRUDY WILL GET BACK TO ME ON WHAT THEY DECIDE. I NOTIFIED SUJATHA AT [facility] AND UPDATED HER THAT PATIENT IS GOING TO GOING TO GO TO SNF ON HOSPICE. I ALSO UPDATED DILIP WITH PALLATIVE [facility]ARE.
--- NOTE | 2017-07-29 10:34 | NUR ---
SPOKE TO PATIENT'S X TRUDY ([phone]) AND UPDATED HER THAT [facility] AND [facility] WOULD BE WILLING TO ACCEPT PATIENT. AND EXPLAINED TO HER THE HOSPICE BENEFIT THAT APPLIES IN A SNF. TRUDY INFORMS ME THAT SHE WOULD LIKE TO TALK TO THE BOYS AND HAVE THEM DECIDE WHICH FACILITY THAT THEY WOULE PREFER. SHE DOES NOT KNOW WHICH ONE " WOULD BE THE BEST." I SUGGESTED THAT SHE GO AND VISIT BOTH OF THE PLACES. SHE IS GOING TO HAVE ONE OF THE BOYS DO THIS SHE IS ON HER WAY TO [place]. SHE WILL CONTACT ME WITH A DECISION ONCE THEY HAVE MADE IT. SHE ASSURES ME THAT SHE WILL HAVE A DECISION LATER THIS AFTERNOON.
--- NOTE | 2017-07-29 15:57 | NUR ---
[phone] RECEIVED CALL FROM MARCO WITH [facility]. SHE REPORTS THAT SHE HAS SPOKEN TO PATIENT'S X SPOUSE TRUDY AND THE SON RO AND THEY HAVE DECIDED THAT THEY WOULD LIKE FOR MARIA LUISA TO GO TO [facility]. DILIP NOTIFIED [facility] AND THEY WILL MAKE ARRANGEMENTS TO HAVE THE PAIN MEDS FOR MARIA LUISA AT [facility] BY [address] YU AND SHE IS IN AGREEMENT TO THE DISCHARGE PLAN. SHE FEELS THAT PATIENT NEEDS TO GO VIA AMULANCE. I SPOKE TO JOSE RAMON WITH [facility], THEY WILL BE HERE AT 13OO TO GET MARIA LUISA AND TRANSPORT HIM TO [facility]. I SPOKE TO MARIA LUISA AND HE IS IN AGREEMENT TO GOING TO [facility]. SPOKE TO ROYA PARKS AT [facility] AND UPDATED HER THAT PATIENT WOULD LIKE TO GO TO [facility] AND SHE REPORTS THAT THEY WILL ACCEPT PATIENT TOMORROW. UPDATED HER THAT PATIENT WILL BE LEAVING HERE AT 1300. PACKET STARTED ORDERS ON THE CHART. PATIENT'S X SPOUSE TRUDY WILL CONTACT GRAZYNA'S SON RO AND UPDATE HIM ON THE DISCHARGE PLANS.
--- NOTE | 2017-07-29 19:25 | NUR ---
Significant event: patient is alert to self and place today. VSS on 1liter 02 for comfort. Port to left chest with COMPUTER FORENSIC SPECIALIST running at 0.4mg/0.4mg/10min. Has had 4 demands/4 deliveries. Pt states he is not having any pain today. Did eat a couple bites of jello, and drank some water. Is in isolation for C-Diff. had a large incontinent void and BM, also used the urinal x1. BM was mushy. Late this afternoon, had 1 small episode where he said he couldn't breathe, talked with patient and calmed him. No other episodes today, has not had any anxiousness. Family currently at bedside. Plans for discharge to [facility] at 0900.
--- NOTE | 2017-07-30 05:12 | NUR ---
Patient is alert but confused. He has moments of orientation but is confused most of the time. He has rested well most of this shift. Repositions himself but encouraged to place pillows under his hips. L) chest port has a Dilaudid IMPORT COORDINATOR infusing at 0.4mg continuous, 0.4mg demand and 10 minute lockout. He has had 6 deliveries with 14 demands. Will be going to [facility] today sometime.
--- NOTE | 2017-07-30 08:57 | NUR ---
Transfer note: Patient is a 61 y/o male with stage IV pancreatic cancer with mets to kidney, lungs, and liver. Has had multiple past hospital stays. Has a hx of diabetes, chronic kidney disease. Recently came due to increasing left abdominal and flank pain, also hypotensive. Has significant decreased oral intake. Is currently taking liquids. No nausea, vomiting. is incontinent of stools and urine. Will occasionally be alert enought to use the urinal or bedpan. Has had loose stools and was treated for C-diff. Is on 1-2 liters of oxygen, just for comfort. Is on Dilaudid JOSS HOUSE KEEPER for pain. Hospice to bring pump and set up for patient. Is supposed to be repositioned q 2 hours, pt does frequently refuse repositioning. Pt does have a difficulty seeing at times. Is alert to self and place today. Does get more confused at times. Pt also has recurrent hiccups and takes thorazine for this. Pt is albe to take his meds whole. He does have occasional panic attacks, thinking that he ca't breathe. Pt is easily talked through this spells. Pt will be given ativan per palliative care before transfer today. He will be leaving around [address] service to [facility].
--- NOTE | 2017-07-30 11:15 | NUR ---
ORDERS FOR TRANSFERE HAVE BEEN COMPLETED. WAITING ON [facility] TO COME AND CHNAGE OUT PUMP. SPOKE TO TRUDY WITH [facility] AND THEY ARE EXPECTING PATIENT TODAY SHE WOULD LIKE FOR ME TO FAX ORDERS TO HER. ORDERS FAXED. SPOKE TO DILIP WITH PALLATIVE CARE AND SHE SPOKE TO ROSALIA WITH [facility] HE WILL BE HERE SOON TO CHANGE OUT THE PUMP FOR PAIN CONTROL. SPOKE TO LIZET WITH [facility]. SHE REPORTS THAT THE AMBULANCE CREW WILL BE HERE AT 1300 TO TRANSPROT PATIENT.
== END 2017-07-30 12:42 | DRG 435 ==
LOC: GMSU 16:10 → GICU 07-23 21:15 → GMSU 07-24 17:05
PROVIDERS: Internal Medicine; Physician Assistant; ADMIT Internal Medicine
DX: C25.9 Malignant neoplasm of pancreas, unspecified (principal); A41.9 Sepsis, unspecified organism; I26.99 Other pulmonary embolism without acute cor pulmonale; C78.00 Secondary malignant neoplasm of unspecified lung; C78.7 Secondary malignant neoplasm of liver and intrahepatic bile duct; A04.7 Enterocolitis due to Clostridium difficile; N17.9 Acute kidney failure, unspecified; C79.00 Secondary malignant neoplasm of unspecified kidney and renal pelvis; Z51.5 Encounter for palliative care; E44.1 Mild protein-calorie malnutrition; N18.3 Chronic kidney disease, stage 3 (moderate); I48.0 Paroxysmal atrial fibrillation; G89.3 Neoplasm related pain (acute) (chronic); D63.8 Anemia in other chronic diseases classified elsewhere; R06.6 Hiccough; Z66 Do not resuscitate; I95.1 Orthostatic hypotension; Z79.01 Long term (current) use of anticoagulants; I12.9 Hypertensive chronic kidney disease with stage 1 through stage 4 chronic kidney disease, or unspecified chronic kidney disease; E11.22 Type 2 diabetes mellitus with diabetic chronic kidney disease; Z79.4 Long term (current) use of insulin; Z86.718 Personal history of other venous thrombosis and embolism; H54.61 Unqualified visual loss, right eye, normal vision left eye; Z92.21 Personal history of antineoplastic chemotherapy; Z92.3 Personal history of irradiation; R62.7 Adult failure to thrive; E86.0 Dehydration; K12.1 Other forms of stomatitis; E11.649 Type 2 diabetes mellitus with hypoglycemia without coma
CPT/HCPCS: G0480; J0692; J1170; J1720; J2060; J2270; J2370; J2405; J3010; J3480; J7030; J7040; J7050; J7060; J7120; P9047; Q0164

== ENCOUNTER → 2017-07-30 | Outpatient (CLI) | payer MEDICARE, OTHER ==
[~2017-07-30] MED LIST changes: +CAPECITABINE500 MG PO; +HYDROCORTISONE10 MG PO; +OXYGEN M-15 INH; +PAMELOR25 MG PO; +PROVENTIL OR V6.7 GM INH; +SENNA-EXTRA17.2 MG PO; +TARCEVA150 MG PO; +TYLENOL)(FEVERA80 MG; +ZOFRAN8 M1 PO
== END | disposition disaster alternative care site (69) ==
LOC: GAMB 12:40
DX: R53.1 Weakness (principal); C64.9 Malignant neoplasm of unspecified kidney, except renal pelvis; C25.9 Malignant neoplasm of pancreas, unspecified
CPT/HCPCS: A0425; A0428